=== PATIENT | male | born 1940 | race Caucasian/White ===

== ENCOUNTER → 2023-07-22 10:16 | Outpatient (REF) | payer MEDICARE, OTHER, SELFPAY ==
[2023-07-22 11:53] LABS: % Basophils 0.5 % (0-2); % Eosinophils 1.4 % (0-6); % Lymphocytes 38.6 % (20.5-51.1); % Monocytes 11.2 % (1.7-9.3); % Neutrophils 48.3 % (42.2-75.2); Absolute Lymphocytes 0.8 10^3/uL (1.2-3.4); Absolute Monocytes 0.2 10^3/uL (0.1-0.6); Hematocrit 32.4 % (39.0-52.0); Hemoglobin 10.7 g/dL (13.0-18.0); Mean Corpuscular Hgb 33.4 pg (27.0-31.0); Mean Corpuscular Volume 101.3 fL (80.0-94.0); Mean Platelet Volume 10.7 fL (7.4-10.4); Nucleated Red Blood Cells % 0 % (-); Platelet Count 79 10^3/uL (130-400); Red Cell Dist. Width 14.6 % (11.5-14.5); White Blood Cell Count 2.2 10^3/uL (4.8-10.8)
[2023-07-22 12:21] LABS: ALT (SGPT) 46 U/L (0-50); AST (SGOT) 78 U/L (17-59); Albumin 3.4 g/dl (3.5-5.0); Alkaline Phosphatase 166 U/L (38-126); Blood Urea Nitrogen 17 mg/dl (9-20); Calcium 8.5 mg/dl (8.4-10.2); Carbon Dioxide 25 mmol/L (22-30); Chloride 105 mmol/L (98-107); Glucose 183 mg/dl (70-99); Potassium 4.5 mmol/L (3.5-5.1); Sodium 135 mmol/L (135-145); Total Bilirubin 0.9 mg/dl (0.2-1.3); Total Protein 6.1 g/dl (6.3-8.2); eGFR > 60.00
[2023-07-22 12:47] LABS: CEA 11.9 ng/ml
== END ==
LOC: HWLAB 10:16
PROVIDERS: ATTENDING PHYSICIAN Internal Medicine Hematology & Oncology; FAMILY PHYSICIAN Nurse Practitioner Adult Health
DX: C18.4 Malignant neoplasm of transverse colon (principal); C78.7 Secondary malignant neoplasm of liver and intrahepatic bile duct; R80.9 Proteinuria, unspecified
CPT/HCPCS: 36415; 80053; 82378; 85025

== ENCOUNTER → 2023-07-29 11:18 | Outpatient (REF) | payer MEDICARE, OTHER, SELFPAY ==
[2023-07-29 15:24] LABS: % Basophils 0.3 % (0-2); % Eosinophils 0.9 % (0-6); % Immature Granulocytes 0.3 % (0-0.5); % Lymphocytes 24.3 % (20.5-51.1); % Monocytes 10.4 % (1.7-9.3); % Neutrophils 63.8 % (42.2-75.2); Absolute Lymphocytes 0.8 10^3/uL (1.2-3.4); Absolute Monocytes 0.4 10^3/uL (0.1-0.6); Absolute Neutrophils 2.2 10^3/uL (1.4-6.5); Hematocrit 33.4 % (39.0-52.0); Hemoglobin 11.5 g/dL (13.0-18.0); Mean Corp Hgb Conc. 34.4 g/dL (33.0-37.0); Mean Corpuscular Hgb 34.8 pg (27.0-31.0); Mean Corpuscular Volume 101.2 fL (80.0-94.0); Mean Platelet Volume 11.5 fL (7.4-10.4); Nucleated Red Blood Cells % 0 % (-); Platelet Count 127 10^3/uL (130-400); Red Cell Dist. Width 14.8 % (11.5-14.5); White Blood Cell Count 3.5 10^3/uL (4.8-10.8)
[2023-07-29 15:44] LABS: ALT (SGPT) 23 U/L (0-50); AST (SGOT) 34 U/L (17-59); Albumin 3.2 g/dl (3.5-5.0); Alkaline Phosphatase 130 U/L (38-126); Blood Urea Nitrogen 26 mg/dl (9-20); Calcium 9.3 mg/dl (8.4-10.2); Carbon Dioxide 21 mmol/L (22-30); Chloride 109 mmol/L (98-107); Glucose 210 mg/dl (70-99); Sodium 139 mmol/L (135-145); Total Protein 6.2 g/dl (6.3-8.2); eGFR 50.49
[2023-07-29 16:11] LABS: CEA 9.38 ng/ml
== END ==
LOC: HWLAB 11:18
PROVIDERS: ATTENDING PHYSICIAN Internal Medicine Hematology & Oncology
DX: C18.4 Malignant neoplasm of transverse colon (principal); C78.7 Secondary malignant neoplasm of liver and intrahepatic bile duct; R80.9 Proteinuria, unspecified
CPT/HCPCS: 36415; 80053; 82378; 85025

== ENCOUNTER → 2023-08-02 10:12 | Outpatient (REF) | payer MEDICARE, OTHER, SELFPAY ==
[2023-08-02 12:51] LABS: Urine Protein 77 mg/dl (0-12)
[2023-08-02 14:32] LABS: 24 Hour Urine Total Volume 2000 ml
== END ==
LOC: HWLAB 10:12
PROVIDERS: ATTENDING PHYSICIAN Internal Medicine Hematology & Oncology; FAMILY PHYSICIAN Nurse Practitioner Adult Health
DX: C18.4 Malignant neoplasm of transverse colon (principal); C78.7 Secondary malignant neoplasm of liver and intrahepatic bile duct; R80.9 Proteinuria, unspecified
CPT/HCPCS: 81050; 84156

== ENCOUNTER → 2023-08-09 08:28 | Outpatient (REF) | payer MEDICARE, OTHER, SELFPAY ==
[2023-08-09 11:11] LABS: ALT (SGPT) 23 U/L (0-50); AST (SGOT) 33 U/L (17-59); Albumin 3.1 g/dl (3.5-5.0); Alkaline Phosphatase 124 U/L (38-126); Blood Urea Nitrogen 17 mg/dl (9-20); Calcium 9.2 mg/dl (8.4-10.2); Carbon Dioxide 25 mmol/L (22-30); Chloride 107 mmol/L (98-107); Glucose 119 mg/dl (70-99); HDL Cholesterol 47 mg/dl; LDL Cholesterol, Calculated 55 mg/dl; Potassium 4.1 mmol/L (3.5-5.1); Sodium 139 mmol/L (135-145); Total Bilirubin 0.8 mg/dl (0.2-1.3); Total Cholesterol 118 mg/dl (50-199); Total Protein 6.3 g/dl (6.3-8.2); Triglyceride 84 mg/dl (10-149); Very Low Density Lipoprotein 16 mg/dl (0-30); eGFR > 60.00
[2023-08-09 11:12] LABS: % Basophils 0.4 % (0-2); % Eosinophils 1.3 % (0-6); % Immature Granulocytes 0.2 % (0-0.5); % Lymphocytes 20.3 % (20.5-51.1); % Monocytes 6.3 % (1.7-9.3); % Neutrophils 71.5 % (42.2-75.2); Absolute Eosinophils 0.1 10^3/uL (0-0.7); Absolute Lymphocytes 0.9 10^3/uL (1.2-3.4); Absolute Monocytes 0.3 10^3/uL (0.1-0.6); Absolute Neutrophils 3.3 10^3/uL (1.4-6.5); Hematocrit 28.3 % (39.0-52.0); Hemoglobin 10.4 g/dL (13.0-18.0); Mean Corp Hgb Conc. 36.7 g/dL (33.0-37.0); Mean Corpuscular Hgb 37.3 pg (27.0-31.0); Mean Corpuscular Volume 101.4 fL (80.0-94.0); Mean Platelet Volume 11.6 fL (7.4-10.4); Nucleated Red Blood Cells % 0 % (-); Platelet Count 69 10^3/uL (130-400); Red Blood Cell Count 2.79 10^6/uL (4.70-6.10); Red Cell Dist. Width 14.6 % (11.5-14.5); White Blood Cell Count 4.6 10^3/uL (4.8-10.8)
[2023-08-09 11:38] LABS: CEA 12.3 ng/ml
[2023-08-09 13:58] LABS: Glycohemoglobin (HgbA1c) 7.4 % (4.0-5.6)
[2023-08-09 14:41] LABS: Microalbumin, Random Urine > 57.0 mg/dl (0.6-1.7)
== END ==
LOC: HWLAB 08:28
PROVIDERS: ATTENDING PHYSICIAN Internal Medicine Hematology & Oncology; FAMILY PHYSICIAN Nurse Practitioner Adult Health
DX: C18.4 Malignant neoplasm of transverse colon (principal); C78.7 Secondary malignant neoplasm of liver and intrahepatic bile duct; R80.9 Proteinuria, unspecified; E11.69 Type 2 diabetes mellitus with other specified complication
CPT/HCPCS: 36415; 80053; 80061; 82043; 82378; 83036; 85025

== ENCOUNTER → 2023-08-12 11:30 | Outpatient (REF) | payer MEDICARE, OTHER, SELFPAY ==
[2023-08-12 16:02] LABS: % Basophils 0.2 % (0-2); % Eosinophils 0.7 % (0-6); % Immature Granulocytes 0.2 % (0-0.5); % Lymphocytes 19.2 % (20.5-51.1); % Monocytes 8.4 % (1.7-9.3); % Neutrophils 71.3 % (42.2-75.2); Absolute Lymphocytes 0.8 10^3/uL (1.2-3.4); Absolute Monocytes 0.4 10^3/uL (0.1-0.6); Hematocrit 30.6 % (39.0-52.0); Hemoglobin 10.5 g/dL (13.0-18.0); Mean Corp Hgb Conc. 34.3 g/dL (33.0-37.0); Mean Corpuscular Hgb 34.2 pg (27.0-31.0); Mean Corpuscular Volume 99.7 fL (80.0-94.0); Nucleated Red Blood Cells % 0 % (-); Platelet Count 66 10^3/uL (130-400); Red Blood Cell Count 3.07 10^6/uL (4.70-6.10); Red Cell Dist. Width 14.7 % (11.5-14.5); White Blood Cell Count 4.2 10^3/uL (4.8-10.8)
== END ==
LOC: HWLAB 11:30
PROVIDERS: ATTENDING PHYSICIAN Internal Medicine Hematology & Oncology; FAMILY PHYSICIAN Nurse Practitioner Adult Health
DX: C18.4 Malignant neoplasm of transverse colon (principal); C78.7 Secondary malignant neoplasm of liver and intrahepatic bile duct; R80.9 Proteinuria, unspecified
CPT/HCPCS: 36415; 85025

== ENCOUNTER → 2023-08-19 10:58 | Outpatient (REF) | payer MEDICARE, OTHER, SELFPAY ==
[2023-08-19 12:52] LABS: % Basophils 0.4 % (0-2); % Eosinophils 1.6 % (0-6); % Lymphocytes 26.8 % (20.5-51.1); % Monocytes 15.4 % (1.7-9.3); % Neutrophils 55.8 % (42.2-75.2); Absolute Lymphocytes 0.7 10^3/uL (1.2-3.4); Absolute Monocytes 0.4 10^3/uL (0.1-0.6); Absolute Neutrophils 1.4 10^3/uL (1.4-6.5); Hematocrit 30.2 % (39.0-52.0); Hemoglobin 10.7 g/dL (13.0-18.0); Mean Corp Hgb Conc. 35.4 g/dL (33.0-37.0); Mean Corpuscular Hgb 36.4 pg (27.0-31.0); Mean Corpuscular Volume 102.7 fL (80.0-94.0); Mean Platelet Volume 11.4 fL (7.4-10.4); Nucleated Red Blood Cells % 0 % (-); Platelet Count 112 10^3/uL (130-400); Red Blood Cell Count 2.94 10^6/uL (4.70-6.10); Red Cell Dist. Width 15.6 % (11.5-14.5); White Blood Cell Count 2.5 10^3/uL (4.8-10.8)
[2023-08-19 13:32] LABS: CEA 12.5 ng/ml
[2023-08-19 13:56] LABS: ALT (SGPT) 29 U/L (0-50); AST (SGOT) 43 U/L (17-59); Albumin 3.5 g/dl (3.5-5.0); Alkaline Phosphatase 188 U/L (38-126); Blood Urea Nitrogen 23 mg/dl (9-20); Calcium 9.6 mg/dl (8.4-10.2); Carbon Dioxide 23 mmol/L (22-30); Chloride 106 mmol/L (98-107); Glucose 266 mg/dl (70-99); Potassium 4.7 mmol/L (3.5-5.1); Sodium 137 mmol/L (135-145); Total Bilirubin 0.6 mg/dl (0.2-1.3); Total Protein 6.5 g/dl (6.3-8.2); eGFR > 60.00
== END ==
LOC: HWLAB 10:58
PROVIDERS: ATTENDING PHYSICIAN Internal Medicine Hematology & Oncology; FAMILY PHYSICIAN Nurse Practitioner Adult Health
DX: C18.4 Malignant neoplasm of transverse colon (principal); C78.7 Secondary malignant neoplasm of liver and intrahepatic bile duct; R80.9 Proteinuria, unspecified
CPT/HCPCS: 36415; 80053; 82378; 85025

== ENCOUNTER → 2023-08-21 13:16 | Outpatient (REF) | payer MEDICARE, OTHER, SELFPAY ==
[2023-08-21 12:08] LABS: Protein/creatinine Ratio 1.5; Urine Protein 133 mg/dl
== END ==
LOC: OIDL 13:16
PROVIDERS: ATTENDING PHYSICIAN Internal Medicine Hematology & Oncology
DX: C18.4 Malignant neoplasm of transverse colon (principal)
CPT/HCPCS: 82570; 84156

== ENCOUNTER → 2023-09-02 11:42 | Outpatient (REF) | payer MEDICARE, OTHER, SELFPAY ==
[2023-09-02 16:00] LABS: % Basophils 0.4 % (0-2); % Eosinophils 0.4 % (0-6); % Immature Granulocytes 0.2 % (0-0.5); % Lymphocytes 20.8 % (20.5-51.1); % Monocytes 8.3 % (1.7-9.3); % Neutrophils 69.9 % (42.2-75.2); Absolute Lymphocytes 0.9 10^3/uL (1.2-3.4); Absolute Monocytes 0.4 10^3/uL (0.1-0.6); Absolute Neutrophils 3.1 10^3/uL (1.4-6.5); Mean Corp Hgb Conc. 34.4 g/dL (33.0-37.0); Mean Corpuscular Hgb 34.9 pg (27.0-31.0); Mean Corpuscular Volume 101.6 fL (80.0-94.0); Mean Platelet Volume 11.8 fL (7.4-10.4); Nucleated Red Blood Cells % 0 % (-); Platelet Count 88 10^3/uL (130-400); Red Blood Cell Count 3.15 10^6/uL (4.70-6.10); Red Cell Dist. Width 15.5 % (11.5-14.5); White Blood Cell Count 4.5 10^3/uL (4.8-10.8)
[2023-09-02 16:13] LABS: ALT (SGPT) 32 U/L (0-50); AST (SGOT) 46 U/L (17-59); Albumin 3.7 g/dl (3.5-5.0); Alkaline Phosphatase 139 U/L (38-126); Blood Urea Nitrogen 18 mg/dl (9-20); Calcium 9.4 mg/dl (8.4-10.2); Carbon Dioxide 23 mmol/L (22-30); Chloride 110 mmol/L (98-107); Glucose 147 mg/dl (70-99); Potassium 4.1 mmol/L (3.5-5.1); Sodium 135 mmol/L (135-145); Total Bilirubin 1.1 mg/dl (0.2-1.3); Total Protein 6.6 g/dl (6.3-8.2); eGFR > 60.00
[2023-09-02 16:43] LABS: CEA 14.6 ng/ml
== END ==
LOC: HWLAB 11:42
PROVIDERS: ATTENDING PHYSICIAN Internal Medicine Hematology & Oncology
DX: C18.4 Malignant neoplasm of transverse colon (principal); C78.7 Secondary malignant neoplasm of liver and intrahepatic bile duct; R80.9 Proteinuria, unspecified
CPT/HCPCS: 36415; 80053; 82378; 85025

== ENCOUNTER → 2023-09-16 11:29 | Outpatient (REF) | payer MEDICARE, OTHER, SELFPAY ==
[2023-09-16 15:48] LABS: % Basophils 0.8 % (0-2); % Eosinophils 1.1 % (0-6); % Immature Granulocytes 0.3 % (0-0.5); % Lymphocytes 23.6 % (20.5-51.1); % Monocytes 13.6 % (1.7-9.3); % Neutrophils 60.6 % (42.2-75.2); Absolute Lymphocytes 0.9 10^3/uL (1.2-3.4); Absolute Monocytes 0.5 10^3/uL (0.1-0.6); Absolute Neutrophils 2.2 10^3/uL (1.4-6.5); Hematocrit 33.1 % (39.0-52.0); Hemoglobin 11.1 g/dL (13.0-18.0); Mean Corp Hgb Conc. 33.5 g/dL (33.0-37.0); Mean Corpuscular Hgb 34.6 pg (27.0-31.0); Mean Corpuscular Volume 103.1 fL (80.0-94.0); Mean Platelet Volume 11.5 fL (7.4-10.4); Nucleated Red Blood Cells % 0 % (-); Platelet Count 84 10^3/uL (130-400); Red Blood Cell Count 3.21 10^6/uL (4.70-6.10); Red Cell Dist. Width 15.1 % (11.5-14.5); White Blood Cell Count 3.6 10^3/uL (4.8-10.8)
[2023-09-16 15:59] LABS: ALT (SGPT) 22 U/L (0-50); AST (SGOT) 35 U/L (17-59); Albumin 3.5 g/dl (3.5-5.0); Alkaline Phosphatase 141 U/L (38-126); Blood Urea Nitrogen 17 mg/dl (9-20); Calcium 9.5 mg/dl (8.4-10.2); Carbon Dioxide 25 mmol/L (22-30); Chloride 106 mmol/L (98-107); Glucose 179 mg/dl (70-99); Potassium 4.5 mmol/L (3.5-5.1); Sodium 137 mmol/L (135-145); Total Bilirubin 0.7 mg/dl (0.2-1.3); Total Protein 6.4 g/dl (6.3-8.2); eGFR > 60.00
[2023-09-16 16:27] LABS: CEA 13.8 ng/ml
== END ==
LOC: HWLAB 11:29
PROVIDERS: ATTENDING PHYSICIAN Internal Medicine Hematology & Oncology; FAMILY PHYSICIAN Nurse Practitioner Adult Health
DX: C18.4 Malignant neoplasm of transverse colon (principal); C78.7 Secondary malignant neoplasm of liver and intrahepatic bile duct; R80.9 Proteinuria, unspecified
CPT/HCPCS: 36415; 80053; 82378; 85025

== ENCOUNTER → 2023-09-18 16:31 | Outpatient (REF) | payer MEDICARE, OTHER, SELFPAY ==
[2023-09-18 11:33] LABS: Protein/creatinine Ratio 3.5; Urine Protein 273 mg/dl
== END ==
LOC: OIDL 16:31
PROVIDERS: ATTENDING PHYSICIAN Internal Medicine Hematology & Oncology
DX: C18.4 Malignant neoplasm of transverse colon (principal)
CPT/HCPCS: 82570; 84156

== ENCOUNTER → 2023-09-30 11:02 | Outpatient (REF) | payer MEDICARE, OTHER, SELFPAY ==
[2023-09-30 13:54] LABS: % Basophils 0.5 % (0-2); % Eosinophils 4.4 % (0-6); % Immature Granulocytes 0.3 % (0-0.5); % Lymphocytes 22.7 % (20.5-51.1); % Monocytes 9.6 % (1.7-9.3); % Neutrophils 62.5 % (42.2-75.2); Absolute Eosinophils 0.2 10^3/uL (0-0.7); Absolute Lymphocytes 0.9 10^3/uL (1.2-3.4); Absolute Monocytes 0.4 10^3/uL (0.1-0.6); Absolute Neutrophils 2.4 10^3/uL (1.4-6.5); Hematocrit 33.6 % (39.0-52.0); Hemoglobin 11.5 g/dL (13.0-18.0); Mean Corp Hgb Conc. 34.2 g/dL (33.0-37.0); Mean Corpuscular Hgb 34.3 pg (27.0-31.0); Mean Corpuscular Volume 100.3 fL (80.0-94.0); Mean Platelet Volume 11.2 fL (7.4-10.4); Nucleated Red Blood Cells % 0 % (-); Platelet Count 80 10^3/uL (130-400); Red Blood Cell Count 3.35 10^6/uL (4.70-6.10); Red Cell Dist. Width 14.8 % (11.5-14.5); White Blood Cell Count 3.9 10^3/uL (4.8-10.8)
[2023-09-30 14:12] LABS: ALT (SGPT) 31 U/L (0-50); AST (SGOT) 43 U/L (17-59); Albumin 3.6 g/dl (3.5-5.0); Alkaline Phosphatase 145 U/L (38-126); Blood Urea Nitrogen 17 mg/dl (9-20); Calcium 9.2 mg/dl (8.4-10.2); Carbon Dioxide 26 mmol/L (22-30); Chloride 108 mmol/L (98-107); Glucose 147 mg/dl (70-99); Potassium 4.8 mmol/L (3.5-5.1); Sodium 136 mmol/L (135-145); Total Bilirubin 0.6 mg/dl (0.2-1.3); Total Protein 6.5 g/dl (6.3-8.2); eGFR 55.19
[2023-09-30 19:55] LABS: CEA 10.6 ng/ml
== END ==
LOC: HWLAB 11:02
PROVIDERS: ATTENDING PHYSICIAN Internal Medicine Hematology & Oncology; FAMILY PHYSICIAN Nurse Practitioner Adult Health
DX: C18.4 Malignant neoplasm of transverse colon (principal); C78.7 Secondary malignant neoplasm of liver and intrahepatic bile duct; R80.9 Proteinuria, unspecified
CPT/HCPCS: 36415; 80053; 82378; 85025

== ENCOUNTER → 2023-10-14 11:28 | Outpatient (REF) | payer MEDICARE, OTHER, SELFPAY ==
[2023-10-14 16:44] LABS: % Basophils 0.6 % (0-2); % Eosinophils 1.7 % (0-6); % Immature Granulocytes 0.3 % (0-0.5); % Lymphocytes 25.6 % (20.5-51.1); % Monocytes 11.8 % (1.7-9.3); Absolute Eosinophils 0.1 10^3/uL (0-0.7); Absolute Lymphocytes 0.9 10^3/uL (1.2-3.4); Absolute Monocytes 0.4 10^3/uL (0.1-0.6); Absolute Neutrophils 2.2 10^3/uL (1.4-6.5); Hematocrit 32.8 % (39.0-52.0); Hemoglobin 11.3 g/dL (13.0-18.0); Mean Corp Hgb Conc. 34.5 g/dL (33.0-37.0); Mean Corpuscular Volume 98.8 fL (80.0-94.0); Mean Platelet Volume 11.8 fL (7.4-10.4); Nucleated Red Blood Cells % 0 % (-); Platelet Count 78 10^3/uL (130-400); Red Blood Cell Count 3.32 10^6/uL (4.70-6.10); Red Cell Dist. Width 14.6 % (11.5-14.5); White Blood Cell Count 3.6 10^3/uL (4.8-10.8)
[2023-10-14 16:51] LABS: ALT (SGPT) 29 U/L (0-50); AST (SGOT) 52 U/L (17-59); Albumin 3.7 g/dl (3.5-5.0); Alkaline Phosphatase 150 U/L (38-126); Blood Urea Nitrogen 19 mg/dl (9-20); Calcium 9.6 mg/dl (8.4-10.2); Carbon Dioxide 21 mmol/L (22-30); Chloride 109 mmol/L (98-107); Glucose 130 mg/dl (70-99); Potassium 4.4 mmol/L (3.5-5.1); Sodium 137 mmol/L (135-145); Total Bilirubin 0.8 mg/dl (0.2-1.3); Total Protein 6.5 g/dl (6.3-8.2); eGFR 55.19
[2023-10-14 20:14] LABS: CEA 13.5 ng/ml
== END ==
LOC: HWLAB 11:28
PROVIDERS: ATTENDING PHYSICIAN Internal Medicine Hematology & Oncology; FAMILY PHYSICIAN Nurse Practitioner Adult Health
DX: C18.4 Malignant neoplasm of transverse colon (principal); C78.7 Secondary malignant neoplasm of liver and intrahepatic bile duct; R80.9 Proteinuria, unspecified
CPT/HCPCS: 36415; 80053; 82378; 85025

== ENCOUNTER → 2023-10-28 12:47 | Outpatient (REF) | payer MEDICARE, OTHER, SELFPAY ==
[2023-10-28 15:28] LABS: ALT (SGPT) 31 U/L (0-50); AST (SGOT) 44 U/L (17-59); Albumin 3.7 g/dl (3.5-5.0); Alkaline Phosphatase 132 U/L (38-126); Blood Urea Nitrogen 20 mg/dl (9-20); Calcium 10.1 mg/dl (8.4-10.2); Carbon Dioxide 24 mmol/L (22-30); Chloride 107 mmol/L (98-107); Glucose 132 mg/dl (70-99); Potassium 4.9 mmol/L (3.5-5.1); Sodium 139 mmol/L (135-145); Total Bilirubin 0.8 mg/dl (0.2-1.3); Total Protein 6.5 g/dl (6.3-8.2); eGFR > 60.00
[2023-10-28 15:40] LABS: % Basophils 0.5 % (0-2); % Eosinophils 2.4 % (0-6); % Lymphocytes 30.6 % (20.5-51.1); % Monocytes 10.3 % (1.7-9.3); % Neutrophils 56.2 % (42.2-75.2); Absolute Eosinophils 0.1 10^3/uL (0-0.7); Absolute Lymphocytes 1.2 10^3/uL (1.2-3.4); Absolute Monocytes 0.4 10^3/uL (0.1-0.6); Absolute Neutrophils 2.1 10^3/uL (1.4-6.5); Hematocrit 35.1 % (39.0-52.0); Hemoglobin 11.9 g/dL (13.0-18.0); Mean Corp Hgb Conc. 33.9 g/dL (33.0-37.0); Mean Corpuscular Hgb 34.4 pg (27.0-31.0); Mean Corpuscular Volume 101.4 fL (80.0-94.0); Mean Platelet Volume 11.2 fL (7.4-10.4); Nucleated Red Blood Cells % 0 % (-); Platelet Count 71 10^3/uL (130-400); Red Blood Cell Count 3.46 10^6/uL (4.70-6.10); Red Cell Dist. Width 14.7 % (11.5-14.5); White Blood Cell Count 3.8 10^3/uL (4.8-10.8)
[2023-10-28 15:58] LABS: CEA 12.8 ng/ml
== END ==
LOC: HWLAB 12:47
PROVIDERS: ATTENDING PHYSICIAN Internal Medicine Hematology & Oncology; FAMILY PHYSICIAN Nurse Practitioner Adult Health
DX: C18.4 Malignant neoplasm of transverse colon (principal); C78.7 Secondary malignant neoplasm of liver and intrahepatic bile duct; R80.9 Proteinuria, unspecified
CPT/HCPCS: 36415; 80053; 82378; 85025

== ENCOUNTER → 2023-11-08 11:54 | Outpatient (REF) | payer MEDICARE, OTHER, SELFPAY ==
[2023-11-08 15:20] LABS: % Basophils 0.3 % (0-2); % Eosinophils 2.9 % (0-6); % Immature Granulocytes 0.3 % (0-0.5); % Lymphocytes 31.8 % (20.5-51.1); % Monocytes 11.6 % (1.7-9.3); % Neutrophils 53.1 % (42.2-75.2); Absolute Eosinophils 0.1 10^3/uL (0-0.7); Absolute Monocytes 0.4 10^3/uL (0.1-0.6); Absolute Neutrophils 1.7 10^3/uL (1.4-6.5); Hematocrit 33.6 % (39.0-52.0); Hemoglobin 11.4 g/dL (13.0-18.0); Mean Corp Hgb Conc. 33.9 g/dL (33.0-37.0); Mean Corpuscular Hgb 34.3 pg (27.0-31.0); Mean Corpuscular Volume 101.2 fL (80.0-94.0); Mean Platelet Volume 11.9 fL (7.4-10.4); Nucleated Red Blood Cells % 0 % (-); Platelet Count 71 10^3/uL (130-400); Red Blood Cell Count 3.32 10^6/uL (4.70-6.10); Red Cell Dist. Width 14.4 % (11.5-14.5); White Blood Cell Count 3.1 10^3/uL (4.8-10.8)
[2023-11-08 15:23] LABS: ALT (SGPT) 26 U/L (0-50); AST (SGOT) 36 U/L (17-59); Albumin 3.4 g/dl (3.5-5.0); Alkaline Phosphatase 119 U/L (38-126); Blood Urea Nitrogen 24 mg/dl (9-20); Carbon Dioxide 23 mmol/L (22-30); Chloride 107 mmol/L (98-107); Glucose 195 mg/dl (70-99); Potassium 4.7 mmol/L (3.5-5.1); Sodium 137 mmol/L (135-145); Total Bilirubin 0.8 mg/dl (0.2-1.3); Total Protein 6.2 g/dl (6.3-8.2); eGFR 55.19
[2023-11-08 15:39] LABS: Urine Protein 259 mg/dl (0-12)
[2023-11-08 16:19] LABS: 24 Hour Urine Total Volume 1200 ml
== END ==
LOC: HWLAB 11:54
PROVIDERS: ATTENDING PHYSICIAN Internal Medicine Hematology & Oncology; FAMILY PHYSICIAN Nurse Practitioner Adult Health; REFERRING PHYSICIAN Nurse Practitioner Adult Health
DX: C18.4 Malignant neoplasm of transverse colon (principal); C78.7 Secondary malignant neoplasm of liver and intrahepatic bile duct; R80.9 Proteinuria, unspecified
CPT/HCPCS: 36415; 80053; 81050; 82378; 84156; 85025

== ENCOUNTER → 2023-11-22 12:51 | Outpatient (REF) | payer MEDICARE, OTHER, SELFPAY ==
[2023-11-22 15:31] LABS: % Basophils 0.6 % (0-2); % Eosinophils 2.1 % (0-6); % Immature Granulocytes 1.2 % (0-0.5); % Lymphocytes 32.8 % (20.5-51.1); % Monocytes 12.3 % (1.7-9.3); Absolute Eosinophils 0.1 10^3/uL (0-0.7); Absolute Lymphocytes 1.1 10^3/uL (1.2-3.4); Absolute Monocytes 0.4 10^3/uL (0.1-0.6); Absolute Neutrophils 1.7 10^3/uL (1.4-6.5); Hematocrit 33.3 % (39.0-52.0); Hemoglobin 11.6 g/dL (13.0-18.0); Mean Corp Hgb Conc. 34.8 g/dL (33.0-37.0); Mean Corpuscular Hgb 34.3 pg (27.0-31.0); Mean Corpuscular Volume 98.5 fL (80.0-94.0); Mean Platelet Volume 11.6 fL (7.4-10.4); Nucleated Red Blood Cells % 0 % (-); Platelet Count 80 10^3/uL (130-400); Red Blood Cell Count 3.38 10^6/uL (4.70-6.10); Red Cell Dist. Width 14.2 % (11.5-14.5); White Blood Cell Count 3.3 10^3/uL (4.8-10.8)
[2023-11-22 15:36] LABS: ALT (SGPT) 23 U/L (0-50); AST (SGOT) 36 U/L (17-59); Albumin 3.6 g/dl (3.5-5.0); Alkaline Phosphatase 114 U/L (38-126); Blood Urea Nitrogen 25 mg/dl (9-20); Calcium 9.6 mg/dl (8.4-10.2); Carbon Dioxide 21 mmol/L (22-30); Chloride 108 mmol/L (98-107); Glucose 172 mg/dl (70-99); Potassium 4.4 mmol/L (3.5-5.1); Sodium 138 mmol/L (135-145); Total Bilirubin 0.9 mg/dl (0.2-1.3); Total Protein 6.3 g/dl (6.3-8.2); eGFR 50.49
[2023-11-22 16:06] LABS: CEA 13.6 ng/ml
== END ==
LOC: HWLAB 12:51
PROVIDERS: ATTENDING PHYSICIAN Internal Medicine Hematology & Oncology; FAMILY PHYSICIAN Nurse Practitioner Adult Health
DX: C18.4 Malignant neoplasm of transverse colon (principal); C78.7 Secondary malignant neoplasm of liver and intrahepatic bile duct; R80.9 Proteinuria, unspecified
CPT/HCPCS: 36415; 80053; 82378; 85025

== ENCOUNTER → 2023-12-06 10:42 | Outpatient (REF) | payer MEDICARE, OTHER, SELFPAY ==
[2023-12-06 15:16] LABS: % Basophils 0.7 % (0-2); % Eosinophils 2.6 % (0-6); % Immature Granulocytes 0.4 % (0-0.5); % Lymphocytes 32.7 % (20.5-51.1); % Monocytes 9.7 % (1.7-9.3); % Neutrophils 53.9 % (42.2-75.2); Absolute Eosinophils 0.1 10^3/uL (0-0.7); Absolute Lymphocytes 1.5 10^3/uL (1.2-3.4); Absolute Monocytes 0.4 10^3/uL (0.1-0.6); Absolute Neutrophils 2.5 10^3/uL (1.4-6.5); Hematocrit 33.5 % (39.0-52.0); Hemoglobin 11.7 g/dL (13.0-18.0); Mean Corp Hgb Conc. 34.9 g/dL (33.0-37.0); Mean Corpuscular Hgb 34.3 pg (27.0-31.0); Mean Corpuscular Volume 98.2 fL (80.0-94.0); Mean Platelet Volume 11.5 fL (7.4-10.4); Nucleated Red Blood Cells % 0 % (-); Platelet Count 80 10^3/uL (130-400); Red Blood Cell Count 3.41 10^6/uL (4.70-6.10); Red Cell Dist. Width 14.5 % (11.5-14.5); White Blood Cell Count 4.6 10^3/uL (4.8-10.8)
[2023-12-06 15:23] LABS: ALT (SGPT) 26 U/L (0-50); AST (SGOT) 38 U/L (17-59); Albumin 3.7 g/dl (3.5-5.0); Alkaline Phosphatase 116 U/L (38-126); Blood Urea Nitrogen 24 mg/dl (9-20); Calcium 9.8 mg/dl (8.4-10.2); Carbon Dioxide 23 mmol/L (22-30); Chloride 109 mmol/L (98-107); Glucose 100 mg/dl (70-99); HDL Cholesterol 49 mg/dl; LDL Cholesterol, Calculated 67 mg/dl; Potassium 4.4 mmol/L (3.5-5.1); Sodium 138 mmol/L (135-145); Total Bilirubin 1.1 mg/dl (0.2-1.3); Total Cholesterol 142 mg/dl (50-199); Total Protein 6.4 g/dl (6.3-8.2); Triglyceride 133 mg/dl (10-149); Very Low Density Lipoprotein 26 mg/dl (0-30); eGFR 50.49
[2023-12-06 15:53] LABS: CEA 13.6 ng/ml
[2023-12-07 09:49] LABS: Glycohemoglobin (HgbA1c) 7.5 % (4.0-5.6)
== END ==
LOC: HWLAB 10:42
PROVIDERS: ATTENDING PHYSICIAN Internal Medicine Hematology & Oncology; FAMILY PHYSICIAN Nurse Practitioner Adult Health
DX: C18.4 Malignant neoplasm of transverse colon (principal); C78.7 Secondary malignant neoplasm of liver and intrahepatic bile duct; R80.9 Proteinuria, unspecified; E11.69 Type 2 diabetes mellitus with other specified complication
CPT/HCPCS: 36415; 80053; 80061; 82378; 83036; 85025

== ENCOUNTER → 2023-12-23 11:12 | Outpatient (REF) | payer MEDICARE, OTHER, SELFPAY ==
[2023-12-23 16:18] LABS: ALT (SGPT) 30 U/L (0-50); AST (SGOT) 42 U/L (17-59); Albumin 3.6 g/dl (3.5-5.0); Alkaline Phosphatase 130 U/L (38-126); Blood Urea Nitrogen 20 mg/dl (9-20); Calcium 9.7 mg/dl (8.4-10.2); Carbon Dioxide 21 mmol/L (22-30); Chloride 111 mmol/L (98-107); Glucose 155 mg/dl (70-99); Potassium 4.5 mmol/L (3.5-5.1); Sodium 139 mmol/L (135-145); Total Bilirubin 0.8 mg/dl (0.2-1.3); Total Protein 6.3 g/dl (6.3-8.2); eGFR 55.19
[2023-12-23 16:26] LABS: % Basophils 0.5 % (0-2); % Immature Granulocytes 0.2 % (0-0.5); % Lymphocytes 24.8 % (20.5-51.1); % Monocytes 10.3 % (1.7-9.3); % Neutrophils 58.2 % (42.2-75.2); Absolute Eosinophils 0.3 10^3/uL (0-0.7); Absolute Monocytes 0.4 10^3/uL (0.1-0.6); Absolute Neutrophils 2.4 10^3/uL (1.4-6.5); Hematocrit 31.7 % (39.0-52.0); Mean Corp Hgb Conc. 34.7 g/dL (33.0-37.0); Mean Corpuscular Hgb 34.7 pg (27.0-31.0); Mean Platelet Volume 12.2 fL (7.4-10.4); Nucleated Red Blood Cells % 0 % (-); Platelet Count 83 10^3/uL (130-400); Red Blood Cell Count 3.17 10^6/uL (4.70-6.10); Red Cell Dist. Width 14.4 % (11.5-14.5); White Blood Cell Count 4.2 10^3/uL (4.8-10.8)
== END ==
LOC: HWLAB 11:12
PROVIDERS: ATTENDING PHYSICIAN Internal Medicine Hematology & Oncology; FAMILY PHYSICIAN Nurse Practitioner Adult Health
DX: C18.4 Malignant neoplasm of transverse colon (principal); C78.7 Secondary malignant neoplasm of liver and intrahepatic bile duct; R80.9 Proteinuria, unspecified
CPT/HCPCS: 36415; 80053; 82378; 85025

== ENCOUNTER → 2024-01-06 11:02 | Outpatient (REF) | payer MEDICARE, OTHER, SELFPAY ==
[2024-01-06 16:40] LABS: ALT (SGPT) 27 U/L (0-50); AST (SGOT) 37 U/L (17-59); Albumin 3.8 g/dl (3.5-5.0); Alkaline Phosphatase 129 U/L (38-126); Blood Urea Nitrogen 21 mg/dl (9-20); Calcium 9.9 mg/dl (8.4-10.2); Carbon Dioxide 22 mmol/L (22-30); Chloride 112 mmol/L (98-107); Glucose 100 mg/dl (70-99); Potassium 4.4 mmol/L (3.5-5.1); Sodium 140 mmol/L (135-145); Total Bilirubin 0.8 mg/dl (0.2-1.3); Total Protein 6.4 g/dl (6.3-8.2); eGFR 55.19
[2024-01-06 16:46] LABS: % Basophils 0.7 % (0-2); % Eosinophils 2.4 % (0-6); % Immature Granulocytes 0.2 % (0-0.5); % Lymphocytes 30.3 % (20.5-51.1); % Monocytes 11.2 % (1.7-9.3); % Neutrophils 55.2 % (42.2-75.2); Absolute Eosinophils 0.1 10^3/uL (0-0.7); Absolute Lymphocytes 1.3 10^3/uL (1.2-3.4); Absolute Monocytes 0.5 10^3/uL (0.1-0.6); Absolute Neutrophils 2.3 10^3/uL (1.4-6.5); Hematocrit 32.3 % (39.0-52.0); Hemoglobin 11.1 g/dL (13.0-18.0); Mean Corp Hgb Conc. 34.4 g/dL (33.0-37.0); Mean Corpuscular Hgb 34.7 pg (27.0-31.0); Mean Corpuscular Volume 100.9 fL (80.0-94.0); Nucleated Red Blood Cells % 0 % (-); Platelet Count 85 10^3/uL (130-400); Red Cell Dist. Width 14.1 % (11.5-14.5); White Blood Cell Count 4.1 10^3/uL (4.8-10.8)
[2024-01-06 17:06] LABS: CEA 15.7 ng/ml
== END ==
LOC: HWLAB 11:02
PROVIDERS: ATTENDING PHYSICIAN Internal Medicine Hematology & Oncology; FAMILY PHYSICIAN Nurse Practitioner Adult Health
DX: C18.4 Malignant neoplasm of transverse colon (principal); C78.7 Secondary malignant neoplasm of liver and intrahepatic bile duct; R80.9 Proteinuria, unspecified
CPT/HCPCS: 36415; 80053; 82378; 85025

== ENCOUNTER 2024-01-08 13:44 | Inpatient (IN) | payer MEDICARE, OTHER, SELFPAY ==
[2024-01-08] VITALS (18 sets, daily range): BP systolic 103–186; BP diastolic 44–97; BMI 22.6
--- NOTE | 2024-01-08 10:46 | ED.GENMED ---
History of Present Illness
General
Chief Complaint: Abdominal Pain
Time Seen by Provider: 01/08/24 10:40
Past History
Past History
ED Past Medical History: NIDDM and Other (Rectal cancer)
ED Past Surgical History: Other (Right hemicolectomy, I&D with chest abscess, small bowel resection)
Social History
Tobacco: Non-smoker
Alcohol: None
Personal:
Living: with family
Employment: Retired
Course
Vital Signs
Initial and Last Documented VS:
Initial Vital Signs
Temp Pulse Resp Pulse Ox
97.5 F 96 18 100
01/08/24 10:30 01/08/24 10:30 01/08/24 10:30 01/08/24 10:30
Last Documented Vital Signs
Temp Pulse Resp BP Pulse Ox
97.5 F 96 18 146/56 100
01/08/24 10:30 01/08/24 10:30 01/08/24 10:30 01/08/24 10:35 01/08/24 10:30
ED Attending Note
-
Portions of this chart may have been created with voice recognition software.� Occasional wrong word or��sound alike� substitutions may have occurred due to the inherent limitations of voice recognition software.
Discharge Plan
Departure
Prescriptions:
No Action
tamsulosin 0.4 MG capsule
0.4 mg PO HS
sitagliptin phos-metformin [Janumet] 1 EACH tablet
1 ea PO BID
atorvastatin 80 MG tablet
80 mg PO HS
cyanocobalamin (vitamin B-12) 1,000 MCG tablet
1,000 mcg PO DAILY
ascorbic acid (vitamin C) [Vitamin C] 500 MG tablet
1,000 mg PO DAILY
ferrous sulfate [FeroSul] 325 MG tablet
325 mg PO DAILY
Interventions
Interventions:
*Risk Screen - Suicide Last Done: 01/08/24 10:30
*General Assessment Last Done: 01/08/24 10:30
*Neglect/Abuse Screening Last Done: 01/08/24 10:30
*ED COVID-19 Vaccine History Last Done: 01/08/24 10:30
Discharge Date and Time
Print Language: BELARUSIAN
--- NOTE | 2024-01-08 11:00 | ED.GENMED ---
History of Present Illness
General
Chief Complaint: Abdominal Pain
Source: patient
Exam Limitations: none
Time Seen by Provider: 01/08/24 10:40
History of Present Illness
History of Present Illness:
83-year-old male presents from [facility] after he developed sudden onset abdominal pain that radiated to his back with an episode of vomiting. 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 Remote history of
right hemicolectomy. He noted shaking chills at the onset of this pain. There is no chest pain. No urinary symptoms. Is moving his bowels normally. He notes a severe pain to the mid abdomen that radiates to the back. She denies chest pain.
Past History
Past History
ED Past Medical History: NIDDM and Other (Rectal cancer)
ED Past Surgical History: Other (Right hemicolectomy, I&D with chest abscess, small bowel resection)
Social History
Tobacco: Non-smoker
Alcohol: None
Personal:
Living: with family
Employment: Retired
Phy Exam
Physical Exam
Physical Exam:
General: Uncomfortable appearing male shaking no acute respiratory distress
HEENT: Normocephalic atraumatic
Heart: Regular rate and rhythm no murmurs
Lungs: Clear no wheeze or rales
abdomen soft soft but tender diffusely with mild guarding.
Extremities: No cyanosis
Skin: Warm no rash
Course
Orders/Labs/Results
Orders:
Orders
01/08/24 10:56
CMP [Comprehensive Metabolic Panel] Urgent
Complete Blood Count/With Diff Urgent
Lipase Urgent
01/08/24 10:58
HYDROmorphone [Dilaudid] 0.5 mg IV NOW STA
01/08/24 11:03
CT Angio Abd/Pelvis w/wo IV [CT Abd/pelvis Angio W/wo Iv] Urgent
Comment:
Reason For Exam: abdominal pain
01/08/24 12:17
Lactic Acid Urgent
Abnormal Lab Results
01/08/24 01/08/24
10:56 12:17
RBC 3.38 L 10^6/uL
(4.70-6.10)
Hgb 11.7 L g/dL
(13.0-18.0)
Hct 33.9 L %
(39.0-52.0)
MCV 100.3 H fL
(80.0-94.0)
MCH 34.6 H pg
(27.0-31.0)
RDW 14.6 H %
(11.5-14.5)
Plt Count 101 L 10^3/uL
(130-400)
MPV 11.5 H fL
(7.4-10.4)
Absolute Lymphs (auto) 0.8 L 10^3/uL
(1.2-3.4)
Neutrophils % 83.6 H %
(42.2-75.2)
Lymphocytes % 11.2 L %
(20.5-51.1)
Potassium 5.5 H mmol/L
(3.5-5.1)
Chloride 111 H mmol/L
(98-107)
Carbon Dioxide 16 L mmol/L
(22-30)
BUN 23 H mg/dl
(9-20)
Creatinine 1.4 H mg/dL
(0.7-1.3)
Glucose 224 H mg/dl
(70-99)
Lactic Acid 2.6 H mmol/L
(0.7-2.0)
Alkaline Phosphatase 153 H U/L
(38-126)
01/08/24 10:56
01/08/24 10:56
Vital Signs
Initial and Last Documented VS:
Initial Vital Signs
Temp Pulse Resp Pulse Ox
97.5 F 96 18 100
01/08/24 10:30 01/08/24 10:30 01/08/24 10:30 01/08/24 10:30
Last Documented Vital Signs
Temp Pulse Resp BP Pulse Ox
98.6 F 79 22 121/49 97
01/08/24 11:07 01/08/24 12:15 01/08/24 12:15 01/08/24 12:03 01/08/24 12:15
MDM/Problems Addressed
Differential Diagnosis Includes:
Sudden onset abdominal and back pain. Consider dissection versus perforation versus obstruction.
Patient quite a bit of discomfort. Vital signs are stable. Dilaudid ordered for pain will order CT angio of the abdomen and pelvis. Notified CT to perform study waiting for labs
*Critical Care Note
Total Time (30-74mins, 75-104mins- exclusive of procedures): Not Applicable
Update Note
Update Note:
No further vomiting here. Vital signs remained stable. Patient still quite tender on exam. CT demonstrates no evidence of dissection but does show small bowel obstruction with transition point in the anterior abdomen just inferior to the
umbilicus. Will admit to hospital for further evaluation. Medical team and surgical team made aware
ED Attending Note
-
Portions of this chart may have been created with voice recognition software.� Occasional wrong word or��sound alike� substitutions may have occurred due to the inherent limitations of voice recognition software.
Discharge Plan
Departure
Patient Disposition: Admit
Date of Disposition: 01/08/24
Time of Disposition: 12:38
Admit to: Med/Surg
Presentation/result/management discussed w/ accepting MD/DO: Hospitalist
Discharge Problem:
Small bowel obstruction
Prescriptions:
No Action
tamsulosin 0.4 MG capsule
0.4 mg PO HS
sitagliptin phos-metformin [Janumet] 1 EACH tablet
1 ea PO BID
atorvastatin 80 MG tablet
80 mg PO HS
cyanocobalamin (vitamin B-12) 1,000 MCG tablet
1,000 mcg PO DAILY
ascorbic acid (vitamin C) [Vitamin C] 500 MG tablet
1,000 mg PO DAILY
ferrous sulfate [FeroSul] 325 MG tablet
325 mg PO DAILY
Referrals:
Michi Ross CRNP [Family Provider] -
Interventions
Interventions:
*Risk Screen - Suicide Last Done: 01/08/24 10:30
*General Assessment Last Done: 01/08/24 10:30
*Neglect/Abuse Screening Last Done: 01/08/24 10:30
ED- Fall Risk Assessment Last Done: 01/08/24 11:07
*ED COVID-19 Vaccine History Last Done: 01/08/24 10:30
TM-Thuxqj-Zkwofwqvmq Assessment Last Done: 01/08/24 11:08
Discharge Date and Time
Print Language: TURKISH
[2024-01-08] MEDS: DILAUDID 0.5 MG IV (11:03)
[2024-01-08 11:05] LABS: % Basophils 0.3 % (0-2); % Eosinophils 1.1 % (0-6); % Immature Granulocytes 0.4 % (0-0.5); % Lymphocytes 11.2 % (20.5-51.1); % Monocytes 3.4 % (1.7-9.3); % Neutrophils 83.6 % (42.2-75.2); Absolute Eosinophils 0.1 10^3/uL (0-0.7); Absolute Lymphocytes 0.8 10^3/uL (1.2-3.4); Absolute Monocytes 0.3 10^3/uL (0.1-0.6); Absolute Neutrophils 6.1 10^3/uL (1.4-6.5); Hematocrit 33.9 % (39.0-52.0); Hemoglobin 11.7 g/dL (13.0-18.0); Mean Corp Hgb Conc. 34.5 g/dL (33.0-37.0); Mean Corpuscular Hgb 34.6 pg (27.0-31.0); Mean Corpuscular Volume 100.3 fL (80.0-94.0); Mean Platelet Volume 11.5 fL (7.4-10.4); Nucleated Red Blood Cells % 0 % (-); Platelet Count 101 10^3/uL (130-400); Red Blood Cell Count 3.38 10^6/uL (4.70-6.10); Red Cell Dist. Width 14.6 % (11.5-14.5); White Blood Cell Count 7.3 10^3/uL (4.8-10.8)
[2024-01-08 11:17] LABS: ALT (SGPT) 27 U/L (0-50); AST (SGOT) 39 U/L (17-59); Albumin 4.1 g/dl (3.5-5.0); Alkaline Phosphatase 153 U/L (38-126); Blood Urea Nitrogen 23 mg/dl (9-20); Calcium 9.9 mg/dl (8.4-10.2); Carbon Dioxide 16 mmol/L (22-30); Chloride 111 mmol/L (98-107); Glucose 224 mg/dl (70-99); Lipase 269 U/L (23-300); Potassium 5.5 mmol/L (3.5-5.1); Sodium 139 mmol/L (135-145); Total Protein 6.7 g/dl (6.3-8.2); eGFR 50.49
[2024-01-08 12:34] LABS: Lactic Acid 2.6 mmol/L (0.7-2.0)
--- NOTE | 2024-01-08 13:07 | HPS.HSE ---
Family Physician
-
Family Physician: Michi Ross
Chief Complaint
-
abdominal pain
History of Present Illness
83-year-old male with PMH for colon cancer, adenocarcinoma of the liver, rectal cancer status post hemicolectomy at present getting chemo at [facility] presented to us with abdominal pain associate with distention since yesterday. Patient was getting
chemo at [facility] , when he started vomiting and complained of excruciating abdominal pain. Patient tolerated breakfast today. The pain radiated to his back . Patient denied fever or chills . Denied chest pain or short of breath .patient denied
headache, dizziness, syncopal episode. Patient denied dysuria, hematuria. He thinks he had a bowel movement today but not sure about it.
CT with small bowel obstruction. Admitting for further management
Medical History
Past Medical History
Past Medical History: Reports Other
Additional Past Medical History:
Type 2 diabetes
Colon cancer
Right lung abscess
Past Surgical History: Reports Other
Additional Past Surgical History:
Hemicolectomy
Bilateral cataract
Thoracotomy
Social History
Tobacco: Non-smoker
Alcohol: None
Drug: None
Personal:
Living: With Family
Family History
Family History: Not pertinent
Allergies / Home Medications
Allergies reflects when Allergies were last updated in [employer].
Home Medications with original date entered in [employer]
Allergy/Medication List:
Allergies
Allergy/AdvReac Type Severity Reaction Status Date / Time
Penicillins Allergy Unknown > Verified 01/08/24 10:30
70 years
ago,
tolerates
amoxil,
cefepime,
keflex
Home Medications
tamsulosin 0.4 mg capsule 0.4 mg PO DAILY Urinary issue 03/02/21
ascorbic acid (vitamin C) 500 mg tablet (Vitamin C) 1,000 mg PO QPM Supplement 05/24/21
atorvastatin 80 mg tablet 80 mg PO DAILY High cholesterol 05/24/21
cyanocobalamin (vitamin B-12) 1,000 mcg tablet 1,000 mcg PO QPM Supplement 05/24/21
ferrous sulfate 325 mg (65 mg iron) tablet (FeroSul) 325 mg PO QPM Supplement 05/24/21
donepezil 5 mg tablet 5 mg PO HS 01/08/24
glipizide 5 mg tablet 5 mg PO DAILY 01/08/24
lisinopril 5 mg tablet 5 mg PO DAILY 01/08/24
sitagliptin phosphate 50 mg-metformin 1,000 mg tablet (Janumet) 1 tab PO BID 01/08/24
therapeutic multivitamin 1 tab PO DAILY 01/08/24
Review of Systems
-
Constitutional: Reports No Symptoms
EENT: Reports No Symptoms
Respiratory: Reports No Symptoms
Cardiac: Reports No Symptoms
Abdomen/GI: Reports Abdominal Pain, Nausea and Vomiting
: Reports No Symptoms
Musculoskeletal: Reports No Symptoms
Skin: Reports No Symptoms
Neurological: Reports No Symptoms
Endocrine: Reports No Symptoms
Hematologic/Lymphatic: Reports No Symptoms
Psych: Reports No Symptoms
Physical Exam
Vital Signs
Vital Signs
Temp Pulse Resp BP Pulse Ox
98.6 F 79 22 121/49 97
01/08/24 11:07 01/08/24 12:15 01/08/24 12:15 01/08/24 12:03 01/08/24 12:15
Physical Exam
General: Well Developed, Well Nourished and No Apparent Distress
HEENT: NormoCephalic, Moist mucous membranes and Atraumatic
Respiratory: Clear
Cardiac: S1/S2 and Regular Rhythm; No Murmur or Rub
GI: Normal Bowel Sounds, Tender and Distended; No Organomegaly
Rectal: Deferred by Provider
Musculoskeletal: No Clubbing, No Cyanosis and No Edema
Skin: No Rash
Neuro: AO x 3 and Nonfocal/grossly intact
Psych: Calm
Laboratory Results
-
01/08/24 10:56
01/08/24 10:56
Laboratory Results
Lactic Acid 2.6 mmol/L (0.7-2.0) H 01/08/24 12:17
Total Bilirubin 1.0 mg/dl (0.2-1.3) 01/08/24 10:56
AST 39 U/L (17-59) 01/08/24 10:56
ALT 27 U/L (0-50) 01/08/24 10:56
Alkaline Phosphatase 153 U/L (38-126) H 01/08/24 10:56
Lipase 269 U/L (23-300) 01/08/24 10:56
Data Reviewed
-
CT Scan: Report Reviewed by me
Lab Data: Labs Reviewed by me
Impression/Plan
-
#sudden onset of abdominal pain, back pain associated with vomiting likley from SBO
-CT with Negative for aortic dissection. Advanced aortic atherosclerotic changes as above. Small bowel obstruction with transition point in the anterior abdomen immediately below the umbilicus, just to the left of midline as above. Hepatic
findings consistent with treated prostatic lesion as seen on previous examination. There is a 2.7 cm decreased attenuation lesion at this level on the delayed phase images. No abnormal FDG uptake at this level on prior PET/CT. Cholelithiasis.
Splenomegaly. 5 mm urinary bladder calculus
-Lactic 2.6
-Trend lactic
-Keep patient n.p.o.
-Fluids continued for hydration
-Surgery consulted
-Dilaudid as needed for pain
-Zofran as needed for nausea vomiting
#hxt of colon ca/rectal cancer/adenocarcinoma of liver
-s/p hemicolectomy
-Follows with [facility]
-At present getting chemo at [facility]
# Anemia of chronic disease/chronic thrombocytopenia
-Hemoglobin stable at 11.7, platelets 101
-No active bleeding
-Continue to monitor
# Hyperkalemia/metabolic acidosis/acute kidney injury likely dehydration
-K5.5, CO2 16, BUN 23, creatinine 1.4
-Normal saline continued monitor BMP in a.m.
# DM-II with hyperglycemia
-Blood sugar elevated
-Hold glipizide, Janumet
-Sliding scale
# Hyperlipidemia
-Statin held
# Dementia
-Aricept held
#Essential hypertension
-Blood pressure stable
-Lisinopril held
# BPH
-Flomax held
DVT Prophylaxis: SCDs
Code Status:DNR
[2024-01-08] MEDS: NSS 1000 IV ×2 (13:46→22:36)
--- NOTE | 2024-01-08 14:45 | W.PN.UPDATE ---
Update Note
Progress Note Update
This note serves as an addendum to the H&P by MISTY Ya, on January 08, 2024.
History of Presenting Illness
83-year-old male with past medical history of colon cancer, adenocarcinoma of the liver, rectal cancer status post hemicolectomy at present getting chemo at [facility] presented with abdominal pain associate with distention since yesterday. Today,
patient had some food in the morning, but later on in the day today, patient was getting chemotherapy at [facility] when he started vomiting and complained of excruciating abdominal pain. Patient denied fever or chills or any other complaints.
Patient's was present in the room and assisted with the history.
Physical Exam
General: Not in acute distress
HEENT: Normocephalic
Respiratory: Clear to Auscultation Bilaterally
Cardiac: S1/S2 and Regular Rhythm
GI: Normal Bowel Sounds, Tender and Distended
Musculoskeletal: No Cyanosis and No Edema
Skin: Warm. Dry.
Neuro: AAO x 3 and Nonfocal/grossly intact
Psych: Calm

CT Abdomen/Pelvis Results, as per radiologist's report
IMPRESSION:
1. Negative for aortic dissection. Advanced aortic atherosclerotic changes as above.
2. Small bowel obstruction with transition point in the anterior abdomen immediately below the umbilicus, just to the left of midline as above.
3. Hepatic findings consistent with treated prostatic lesion as seen on previous examination. There is a 2.7 cm decreased attenuation lesion at this level on the delayed phase images. No abnormal FDG uptake at this level on prior PET/CT.
4. Cholelithiasis.
5. Splenomegaly.
6. 5 mm urinary bladder calculus

Assessment/Plan
#Presentation with abdominal pain, likely secondary from bowel obstruction
-Lactic 2.6
-Trend lactic acid
-Keep patient n.p.o.
-Continue IV fluids
-Surgery consulted, appreciate recommendations
-Dilaudid as needed for pain
-Zofran as needed for nausea vomiting
#History of colon ca/rectal cancer/adenocarcinoma of liver
-s/p hemicolectomy
-Follows with [facility]
-At present getting chemo at [facility], last chemo was on 01/08/24 (but was reportedly cut short)
# Anemia of chronic disease/chronic thrombocytopenia
-Hemoglobin stable at 11.7, platelets 101
-No active bleeding
-Continue to monitor
# Hyperkalemia/metabolic acidosis/acute kidney injury likely dehydration
-Admission BMP labwork: K5.5, CO2 16, BUN 23, creatinine 1.4
-Continue IV fluids
-Recheck BMP this evening and make adjustments as needed
# DM-II with hyperglycemia
-Blood sugar elevated
-Hold glipizide, Janumet
-Sliding scale insulin and accuchecks
# Hyperlipidemia
-Statin held
# Dementia
-Aricept held
#Essential hypertension
-Blood pressure stable
-Lisinopril held
# BPH
-Flomax held
DVT Prophylaxis: Heparin Subq
Code Status:DNR
[2024-01-08] MEDS: SODIUM BICARBONATE 1075 MEQ IV (15:27)
--- NOTE | 2024-01-08 17:08 | W.PN.UPDATE ---
Update Note
Progress Note Update
patient seen and evaluated at bedside
83 year-old male with known recurrent colon cancer on long-term palliative chemotherapy presented today to the emergency department with acute onset, abdominal pain, nausea and vomiting that occurred earlier today during his chemotherapy infusion
comfortable during my encounter exam with mild distention and mild TTP about the umbilicus primarily, he is passing gas in the emergency department and reports he had a bowel movement earlier today
patient has mild dementia. His was present during my encounter and helped with history.
suspect partial SBO resulting from adhesions versus chemo enteritis versus malignancy.
Plan trial clear liquids. If he does not improve over the next 24 hours, he may benefit from oral contrast imaging.
Full consult note to follow.
[2024-01-08 18:59] LABS: Blood Urea Nitrogen 28 mg/dl (9-20); Calcium 9.4 mg/dl (8.4-10.2); Carbon Dioxide 18 mmol/L (22-30); Chloride 109 mmol/L (98-107); Glucose 243 mg/dl (70-99); Potassium 5.4 mmol/L (3.5-5.1); Sodium 134 mmol/L (135-145); eGFR 50.49
[2024-01-08 19:31] LABS: Lactic Acid 4.1 mmol/L (0.7-2.0)
[2024-01-08 19:34] LABS: Glucose - Point of Care 237 mg/dl (70-99)
[2024-01-08] MEDS: NOVOLOG FLEXPEN-LOW RESISTANCE 2 UNITS SC (19:34)
--- NOTE | 2024-01-08 19:57 | W.PN.UPDATE ---
Update Note
Progress Note Update
-lactic acid is keep trending up from 2.6 to 4.1. 500cc off NSS was ordered. Patient is asymptomatic. Surgical and foreclosure specialist were updated as recommended by the attending. New recommendation per surgical pianos and organs salesperson Dr. Moore to give another
bolus NSS 1000cc then to start NSS at rate 150cc/hr.
- 2am lab (hyperkalemia resolved K 4.6, Cr down to 1.3)
-Co2 is 15 patient currently on sodium bicarb drip rat at 75cc will increase the rate and will repeat the lab.
-lactic up to 4.8, patient still asymptomatic, afebrile, denied abdominal pain, nausea or vomiting. Abdomen is soft, without tenderness and normal bowel sound on exam. Will continue with IVF, continue trending lactic and will add blood cultures.
[2024-01-08] MEDS: HEPARIN 5000 UNITS SC (20:21)
[2024-01-08] MEDS: NSS 500 IV (20:26)
[2024-01-08 21:48] LABS: Glucose - Point of Care 237 mg/dl (70-99)
[2024-01-09] MEDS: DILAUDID 0.5 MG IV ×4 (00:46→21:08)
[2024-01-09] MEDS: NSS 1000 IV ×3 (00:47→21:08)
[2024-01-09] MEDS: NOVOLOG FLEXPEN-LOW RESISTANCE SC ×4 (00:50→17:27)
[2024-01-09 01:38] LABS: Blood Urea Nitrogen 31 mg/dl (9-20); Calcium 8.7 mg/dl (8.4-10.2); Carbon Dioxide 15 mmol/L (22-30); Chloride 114 mmol/L (98-107); Estimated Creatinine Clearance 42 ml/min; Glucose 166 mg/dl (70-99); Lactic Acid 4.8 mmol/L (0.7-2.0); Magnesium 1.8 mg/dl (1.6-2.3); Phosphorus 2.7 mg/dl (2.5-4.5); Potassium 4.6 mmol/L (3.5-5.1); Sodium 138 mmol/L (135-145); Uric Acid 5.5 mg/dl (3.5-8.5); eGFR 55.19
[2024-01-09 03:10] VITALS: BP 116/58
--- NOTE | 2024-01-09 06:02 | PTCARENOTE ---
Patient very tremulous overnight, unstable on his feet while standing at bedside to urinate. Patient stated he was having difficulty urinating, pt. bladder scanned two times overnight and was found to have 198mls of urine the first time and 401 mls
of urine the second time. Attempted to straight cath patient but met resistance and stopped the attempt. Provider notified and coude delgado catheter ordered for pt. Pt again stated that he wished to stand at bedside commode to try to urinate, pt. was
able to stand with the assistance of 2 and urinate at the commode, yielding a small amount of urine with each attempt (150mls, 200mls, 100mls). No delgado insertion needed at this time. Lactic acid continues to increase, 2.6-4.1-4.8; provider aware.
Pt. bolused 500 mls of NSS and an additional 1 L NSS bolus. Pt. is afebrile at this time and VSS. Pt. does complain of pain 'all over his body.' PRN dilaudid administered x2 overnight per order. Pt. respiratory rate elevated into the high 20s-30s at
times overnight. Will continue to monitor.
[2024-01-09 06:14] LABS: Lactic Acid 1.5 mmol/L (0.7-2.0)
[2024-01-09 06:32] LABS: Glucose - Point of Care 169 mg/dl (70-99)
[2024-01-09 06:40] LABS: Hematocrit 25.5 % (39.0-52.0); Hemoglobin 9.2 g/dL (13.0-18.0); Mean Corp Hgb Conc. 36.1 g/dL (33.0-37.0); Mean Corpuscular Hgb 36.1 pg (27.0-31.0); Red Blood Cell Count 2.55 10^6/uL (4.70-6.10); Red Cell Dist. Width 13.8 % (11.5-14.5); White Blood Cell Count 5.3 10^3/uL (4.8-10.8)
[2024-01-09 06:50] LABS: Blood Urea Nitrogen 33 mg/dl (9-20); Calcium 8.6 mg/dl (8.4-10.2); Carbon Dioxide 20 mmol/L (22-30); Chloride 112 mmol/L (98-107); Estimated Creatinine Clearance 42 ml/min; Glucose 141 mg/dl (70-99); Potassium 4.6 mmol/L (3.5-5.1); Sodium 137 mmol/L (135-145); eGFR 55.19
[2024-01-09 07:00] VITALS: BP 112/65
[2024-01-09 07:18] LABS: Mean Platelet Volume 11.7 fL (7.4-10.4); Platelet Count 57 10^3/uL (130-400)
[2024-01-09] MEDS: SODIUM BICARBONATE IV (07:45)
--- NOTE | 2024-01-09 07:45 | PTCARENOTE ---
Clarified with provider the fluid order for patient, provider instructed to hold the 1/2 NS with 75 mEq of Bicarb for now. Also clarified order for transfer to IMU overnight. Provider instructed to keep the patient on this unit. Assessment ongoing.
[2024-01-09] MEDS: HEPARIN 5000 UNITS SC ×2 (08:25→21:09)
[2024-01-09 09:05] LABS: Glycohemoglobin (HgbA1c) 7.3 % (4.0-5.6)
--- NOTE | 2024-01-09 09:25 | CON.GS ---
Consultation
-
Date/Time Consultation Requested: 01/08/24 12PM
Date/Time Consultation Performed: 01/08/24 4PM - LATE ENTRY FROM ENCOUNTER YESTERDAY
Requesting Provider: Declan
Performing Provider: Dev
Reason for Consultation: SBO
Medical History
-
Chief Complaint: Abd pain n/v
History of Present Illness:
83M with hx of CRC s/p resection about 15 yrs ago with subsequent recurrence now on termination clerk palliative chemo p/w acute onset abd pain a/w n/v. He began having mild abd discomfort yesterday and then today during chemo infusion it became acutely
worse. 1 episode of vomiting. At present he is comfortable. He has mild dementia and helps with history at the bedside. He reports BM this am and he is presently passing gas. Denies f/c.
Past Medical History
Past Medical History: Other (Type 2 diabetes Colon cancer Right lung abscess mild dementia)
Past Surgical History: Other (Hemicolectomy Bilateral cataract Thoracotomy)
Social History
Tobacco: Non-Smoker
Alcohol: None
Drug: None
Personal:
Living: With Family
Family History
Family History: Reviewed & Noncontributory
Allergies / Home Medications
Allergy/AdvReac Type Severity Reaction Status Date / Time
Penicillins Allergy Unknown > Verified 01/08/24 10:30
70 years
ago,
tolerates
amoxil,
cefepime,
keflex
�Medication �Instructions �Recorded �Confirmed �Type
tamsulosin 0.4 mg capsule 0.4 mg PO DAILY Urinary issue 03/02/21 01/08/24 History
ascorbic acid (vitamin C) 500 mg 1,000 mg PO QPM Supplement 05/24/21 01/08/24 History
tablet (Vitamin C)
atorvastatin 80 mg tablet 80 mg PO DAILY High cholesterol 05/24/21 01/08/24 History
cyanocobalamin (vitamin B-12) 1,000 mcg PO QPM Supplement 05/24/21 01/08/24 History
1,000 mcg tablet
ferrous sulfate 325 mg (65 mg 325 mg PO QPM Supplement 05/24/21 01/08/24 History
iron) tablet (FeroSul)
donepezil 5 mg tablet 5 mg PO HS Neurological Condition 01/08/24 01/08/24 History
glipizide 5 mg tablet 5 mg PO DAILY Diabetes 01/08/24 01/08/24 History
lisinopril 5 mg tablet 5 mg PO DAILY Blood Pressure 01/08/24 01/08/24 History
sitagliptin phosphate 50 1 tab PO BID Diabetes 01/08/24 01/08/24 History
mg-metformin 1,000 mg tablet
(Janumet)
therapeutic multivitamin 1 tab PO DAILY Supplement 01/08/24 01/08/24 History
Review of Systems
-
A 10 point review of systems was completed, and was negative except as per HPI.
Physical Exam
Vital Signs
Temp Pulse Resp BP Pulse Ox
97.4 F 67 22 112/65 98
01/09/24 07:00 01/09/24 07:00 01/09/24 07:00 01/09/24 07:00 01/09/24 07:00
01/08/24 01/09/24 01/10/24
06:59 06:59 06:59
Actual Weight 67.33 kg
Body Mass Index (BMI) 22.6
Lab Results
01/09/24 05:49
WBC 5.3 10^3/uL (4.8-10.8) 01/09/24 05:49
Hgb 9.2 g/dL (13.0-18.0) L D 01/09/24 05:49
Hct 25.5 % (39.0-52.0) L 01/09/24 05:49
Plt Count 57 10^3/uL (130-400) L D 01/09/24 05:49
Abs Immat Gran (auto) 0.0 10^3/uL (0-0.05) 01/08/24 10:56
Neutrophils % 83.6 % (42.2-75.2) H 01/08/24 10:56
Physical Exam
General: No Apparent Distress
HEENT: Normocephalic and Anicteric
GI: Soft, Non Distended and Tender (very mild ttp about the umbilicus)
Skin: Warm and Dry
Neuro: AO x 3
Psych: Calm
Data Reviewed
-
CT Scan: Image Personally Visualized and interpreted, Report Reviewed by me, Discussed with Patient and Discussed with Family
Labs: Labs Reviewed by me, Discussed with Patient and Discussed with Family
Old Records: Reviewed
Assessment / Plan
-
83M with pSBO 2/2 adhesions vs chemo enteritis vs malignancy
AFVSS, passing flatus in the ED, denies n/v
Labs notable for thrombocytopenia, no leukocytosis
CT with dilated sb loops in anterior mid abdomen, possibly some wall thickening, sb feces sign just proximal to transition point, no PV gas, no pneumatosis, no free air
Plan:
Trial clears
If he does not improve in the next 24-48 hrs, PO contrast imaging may be beneficial
PRN pain meds/anti-emetics
Ambulate
DVT ppx
All other care as per primary team
--- NOTE | 2024-01-09 10:32 | CON.ONC ---
Impression
Impression
Small bowel obstruction
Metastatic colon carcinoma
Mild dementia
Diabetes mellitus
History of lung abscess
Prostate abnormality
Splenomegaly
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
Plan
Plan
Small bowel obstruction with definitive transition point
Hemoglobin declining with hydration no active bleeding
Thrombocytopenia secondary to bolus 5-fluorouracil
Conservative management of small bowel obstruction
Monitor CBC
Patient History
History of Present Illness
Patient is a pleasant 83-year-old gentleman that has been on chronic suppressive chemotherapy for metastatic colon carcinoma the presented to the hospital with increased abdominal discomfort. Radiologic studies revealed evidence of small bowel
obstruction. He was last treated with 5-FU based systemic therapy on 12/25/2023. He previously received bevacizumab but not since 10/30/2023. Patient appears comfortable this morning noting an improvement in his abdominal discomfort.
Past-Medical/Surgical History
Past Medical History
Type 2 diabetes
Colon cancer
Right lung abscess
Past Surgical History
Hemicolectomy
Bilateral cataract
Thoracotomy
Social History
Tobacco: Non-smoker
Alcohol: None
Drug: None
Personal:
Living: With Family
Family History
Family History: Not pertinent
Patient Medication
�Medication �Instructions �Recorded �Confirmed �Last Taken �Type
tamsulosin 0.4 mg capsule 0.4 mg PO DAILY Urinary issue 03/02/21 01/08/24 01/08/24 History
ascorbic acid (vitamin C) 500 mg 1,000 mg PO QPM Supplement 05/24/21 01/08/24 06/14/21 History
tablet (Vitamin C)
atorvastatin 80 mg tablet 80 mg PO DAILY High cholesterol 05/24/21 01/08/24 01/08/24 History
cyanocobalamin (vitamin B-12) 1,000 mcg PO QPM Supplement 05/24/21 01/08/24 01/07/24 History
1,000 mcg tablet
ferrous sulfate 325 mg (65 mg 325 mg PO QPM Supplement 05/24/21 01/08/24 01/07/24 History
iron) tablet (FeroSul)
donepezil 5 mg tablet 5 mg PO HS Neurological Condition 01/08/24 01/08/24 Unknown History
glipizide 5 mg tablet 5 mg PO DAILY Diabetes 01/08/24 01/08/24 01/08/24 History
lisinopril 5 mg tablet 5 mg PO DAILY Blood Pressure 01/08/24 01/08/24 01/08/24 History
sitagliptin phosphate 50 1 tab PO BID Diabetes 01/08/24 01/08/24 01/08/24 History
mg-metformin 1,000 mg tablet
(Janumet)
therapeutic multivitamin 1 tab PO DAILY Supplement 01/08/24 01/08/24 01/08/24 History
Active Medications
Generic Name Dose Route Start Last Admin
Trade Name Freq PRN Reason Stop Dose Admin
Dextrose 12.5 grams 01/08/24 18:18
Dextrose 50% (0.5 Grams/Ml) 50 Ml Syringe IV 02/05/24 18:17
[id number] PRN
hypoglycemia
Protocol
Glucagon 1 mg 01/08/24 18:18
Glucagon 1 Mg Vial IM 02/05/24 18:17
PRN PRN
hypoglycemia
Protocol
Heparin Sodium 5,000 units 01/08/24 20:00 01/09/24 08:25
Heparin 5,000 Units/Ml 1 Ml Vial SC 02/05/24 19:59 5,000 units
Q12 TOBI Administration
Hydromorphone HCl 0.5 mg 01/08/24 18:18 01/09/24 05:52
Hydromorphone 0.5 Mg/0.5 Ml Syringe IV 01/22/24 18:17 0.5 mg
Q4HPRN PRN Administration
severe pain
Sodium Chloride 1,000 mls @ 150 mls/hr 01/08/24 22:30 08/01/24 00:47
Nss IV 1,000 mls
.Q6H40M TOBI Administration
Insulin Aspart 0 units 01/09/24 00:00 01/09/24 07:30
Insulin Aspart Low Resistance 300 Units/3 Ml Pen.Injctr SC 02/06/24 00:00 300 units
Q6 TOBI Administration
Protocol
Ondansetron HCl 4 mg 01/08/24 18:18
Ondansetron 4 Mg/2 Ml Vial IV 02/05/24 18:17
Q6HPRN PRN
nausea and vomiting
Sodium Chloride 0 flush 01/08/24 16:00
Sodium Chloride 0.9% (Flush) Syringe IV 02/05/24 15:59
PER PROTOCOL TOBI
Review of Systems
-
Patient denies acute discomfort or shortness of breath. 12 point review systems fails to elicit additional complaints other than those noted in the HPI
Physical Exam
-
Physical Exam
General: Well Developed, Well Nourished and No Apparent Distress
HEENT: NormoCephalic, Moist mucous membranes and Atraumatic
Respiratory: Clear without rales or rhonchi
Cardiac: S1/S2 and Regular Rhythm; No Murmur or Rub
GI: Normal Bowel Sounds, Tender and mildly distended; No Organomegaly
Musculoskeletal: No Clubbing, No Cyanosis and No Edema
Skin: No Rash
Neuro: AO x 3 and Nonfocal/grossly intact
Psych: Calm
Labs
Lab Results
WBC 5.3 10^3/uL (4.8-10.8) 01/09/24 05:49
RBC 2.55 10^6/uL (4.70-6.10) L 01/09/24 05:49
Hgb 9.2 g/dL (13.0-18.0) L D 01/09/24 05:49
Hct 25.5 % (39.0-52.0) L 01/09/24 05:49
MCV 100.0 fL (80.0-94.0) H 01/09/24 05:49
MCH 36.1 pg (27.0-31.0) H 01/09/24 05:49
MCHC 36.1 g/dL (33.0-37.0) 01/09/24 05:49
RDW 13.8 % (11.5-14.5) 01/09/24 05:49
Plt Count 57 10^3/uL (130-400) L D 01/09/24 05:49
MPV 11.7 fL (7.4-10.4) H 01/09/24 05:49
Abs Immat Gran (auto) 0.0 10^3/uL (0-0.05) 01/08/24 10:56
Absolute Neuts (auto) 6.1 10^3/uL (1.4-6.5) 01/08/24 10:56
Absolute Lymphs (auto) 0.8 10^3/uL (1.2-3.4) L 01/08/24 10:56
Absolute Monos (auto) 0.3 10^3/uL (0.1-0.6) 01/08/24 10:56
Absolute Eos (auto) 0.1 10^3/uL (0-0.7) 01/08/24 10:56
Absolute Basos (auto) 0.0 10^3/uL (0-0.2) 01/08/24 10:56
Immature Gran % 0.4 % (0-0.5) 01/08/24 10:56
Neutrophils % 83.6 % (42.2-75.2) H 01/08/24 10:56
Lymphocytes % 11.2 % (20.5-51.1) L 01/08/24 10:56
Monocytes % 3.4 % (1.7-9.3) 01/08/24 10:56
Eosinophils % 1.1 % (0-6) 01/08/24 10:56
Basophils % 0.3 % (0-2) 01/08/24 10:56
Creatinine 1.3 mg/dL (0.7-1.3) 01/09/24 05:49
Vital Signs
Vital Signs
Temp Pulse Resp BP Pulse Ox
97.4 F 67 22 112/65 98
01/09/24 07:00 01/09/24 07:00 01/09/24 07:00 01/09/24 07:00 01/09/24 07:00
--- NOTE | 2024-01-09 10:35 | W.PN.GS2 ---
Addendum entered and electronically signed by Gage Moore MD 01/09/24 16:11:
Patient seen and examined in follow-up this afternoon with nurse joseer. Agree with documented progress note with additions noted here.
Patient resting comfortably in his bed, finishing oral contrast for CT imaging at the time.
Denies abdominal pain
Denies nausea
Patient unable to recall if he is passing flatus or bowel movements
AF VSS
NAD AAO x 1 (knew he was in the hospital but thought [facility])
Abdomen: Soft, nondistended, completely nontender on palpation. No rebound, no rigidity, no guarding.
Follow-up CT imaging reviewed from today. Oral contrast opacifies throughout small bowel and into the colon. No significant residual small bowel distention. No abrupt transition point. No free air, no pneumatosis, no mesenteric or portal venous
gas. No residual small bowel thickening or edema. Trace free fluid.
Assessment/plan: 83-year-old male initially presenting with probable partial small bowel obstruction in the setting of chronic suppressive chemotherapy for metastatic colon cancer.
Overnight metabolic acidosis with elevated lactic acid and electrolyte abnormalities for likely reflective of his inadequate IV fluid resuscitation. Much improved and resolved after IV fluid bolus and more aggressive IV fluid hydration provided.
Abdominal examination without any signs of bowel compromise or threat and repeat CT imaging today confirms essentially resolution of presenting partial small bowel obstruction.
Start on clear liquid diet for today and monitor for subsequent dietary advancement
Updated patient's via phone call from a general surgical treatment standpoint.
Original Note:
Today's Communication / Plan
-
CT with PO contrast
Assessment / Plan
-
83M with recurrent colon cancer on long-term palliative chemotherapy presenting with pSBO 2/2 adhesions vs chemo enteritis vs malignancy, transition point near umbilicus.
AFVSS
Urinary retention being followed by primary team: ?delgado placement today
+flatus last night per spouse, await BM. No n/v. No abdominal pain on exam but poor historian
No leukocytosis. H/H/Plts dropped overnight without signs of active bleeding
Metabolic acidosis: on bicarb gtt
Lactic acid elevated overnight, resolved with IVF
Plan:
Plan PO contrast study to further evaluate
Analgesics/antiemetics
Medical management as per primary team
Subjective Data
-
Date of Service: January 09, 2024
Patient seen and examined at bedside. present and offering history as patient is confused. She notes she has heard him passing some flatus with attempts to void. He has had no BM's as of yet. He denies nausea. He is curled up in the
position but denies pain or tenderness to abdomen on exam. Difficulty voiding.
Objective Data
-
Intake and Output
01/08/24 01/09/24 01/10/24
06:59 06:59 06:59
Intake Total 1760 / 1760
Output Total 350 / 350
Balance 1410 / 1410
Intake:
Oral fluids 60 / 60
IV fluids (Total) 1700 / 1700
Nss 1,000 ml @ 100 mls/hr IV . 200 / 200
Q10H TOBI Rx#:[id number]
Output:
Urine, Voided 350 / 350
Other:
Number of unmeasured voidings 1
Number of approximated SMALL 1
amounts of urine
Vital Signs
Temp Pulse Resp BP Pulse Ox
97.4 F 67 22 112/65 98
01/09/24 07:00 01/09/24 07:00 01/09/24 07:00 01/09/24 07:00 01/09/24 07:00
Lab Results
01/09/24 05:49
Calcium 8.6 mg/dl (8.4-10.2) 01/09/24 05:49
Phosphorus 2.7 mg/dl (2.5-4.5) 01/09/24 01:06
Magnesium 1.8 mg/dl (1.6-2.3) 01/09/24 01:06
Total Bilirubin 1.0 mg/dl (0.2-1.3) 01/08/24 10:56
AST 39 U/L (17-59) 01/08/24 10:56
ALT 27 U/L (0-50) 01/08/24 10:56
Alkaline Phosphatase 153 U/L (38-126) H 01/08/24 10:56
Total Protein 6.7 g/dl (6.3-8.2) 01/08/24 10:56
Albumin 4.1 g/dl (3.5-5.0) 01/08/24 10:56
Physical Exam
-
NAD, confused
Flushed
ABD soft, NT, bladder distention present otherwise ND
--- NOTE | 2024-01-09 10:53 | PTCARENOTE ---
Attempt x1 coude catheter insertion. Patient not tolerating the procedure, tense, groaning with resistance met at initial insertion so attempt stopped. No return of urine and a small amount of blood noted on the tip of the catheter upon removal.
Provider made aware and urologist notified by provider in the message.
--- NOTE | 2024-01-09 10:56 | W.PN.HOSP.TC ---
Addendum entered and electronically signed by Derrick Bourgeois MD 01/09/24 12:32:
Correction: NPO for now, until CT imaging is complete and surgery says can upgrade to a clear liquids diet
Original Note:
Today's Communication/Plan
-
Clear Liquids Diet as per surgery
Labwork improved
Monitor for improvement for another 1-2 days
Assessment / Plan
Assessment / Plan
Physical Exam
General: Not in acute distress
HEENT: Normocephalic
Respiratory: Clear to Auscultation Bilaterally
Cardiac: S1/S2 and Regular Rhythm
GI: Normal Bowel Sounds, Tender and Distended
Musculoskeletal: No Cyanosis and No Edema
Skin: Warm. Dry.
Neuro: AAO x 3 and Nonfocal/grossly intact
Psych: Calm

CT Abdomen/Pelvis Results, as per radiologist's report
IMPRESSION:
1. Negative for aortic dissection. Advanced aortic atherosclerotic changes as above.
2. Small bowel obstruction with transition point in the anterior abdomen immediately below the umbilicus, just to the left of midline as above.
3. Hepatic findings consistent with treated prostatic lesion as seen on previous examination. There is a 2.7 cm decreased attenuation lesion at this level on the delayed phase images. No abnormal FDG uptake at this level on prior PET/CT.
4. Cholelithiasis.
5. Splenomegaly.
6. 5 mm urinary bladder calculus

Assessment/Plan
#Presentation with abdominal pain, likely secondary from bowel obstruction
-Lactic 2.6-->4.8-->1.5
-Okay to trial clear liquids diet, as per surgery
-If patient does not improve in the next 24-48 hrs, PO contrast imaging may be beneficial
-Continue IV fluids
-Surgery consulted, appreciate recommendations
-Dilaudid as needed for pain
-Zofran as needed for nausea vomiting
#History of colon ca/rectal cancer/adenocarcinoma of liver
-s/p hemicolectomy
-Follows with [facility]
-At present getting chemo at [facility], last chemo was on 01/08/24 (but was reportedly cut short)
#Urinary Retention
-Per nurse on January 09, 2024, it was difficult delgado catheter placement
-Urology consulted, evaluation and recommendations appreciated
# Anemia of chronic disease/chronic thrombocytopenia
-Suspected from chemo plus cancer
-Hemoglobin stable at 11.7, platelets 101
-No active bleeding
-Continue to monitor
# Hyperkalemia/metabolic acidosis/acute kidney injury likely dehydration
-Admission BMP labwork: K5.5, CO2 16, BUN 23, creatinine 1.4
-Continue IV fluids
# DM-II with hyperglycemia
-Blood sugar elevated
-Hold glipizide, Janumet
-Sliding scale insulin and accuchecks
# Hyperlipidemia
-Statin held
# Dementia
-Aricept held
#Essential hypertension
-Blood pressure stable
-Lisinopril held
# BPH
-Flomax held
DVT Prophylaxis: Heparin Subq
Code Status:DNR
Anticipated Discharge: 24 - 48 hours
Subjective/Interval History
-
Date of Service: January 09, 2024
Patient was seen and examined. He denied any abdominal pain or any other complaints.
Objective Data
-
Labs:
Laboratory Results
01/09/24 01/09/24 01/09/24
01:06 05:49 12:00
WBC 5.3
Hgb 9.2 L D
Hct 25.5 L
Plt Count 57 L D
Sodium 138 137 Pending
Potassium 4.6 4.6 Pending
Chloride 114 H 112 H Pending
Carbon Dioxide 15 L 20 L Pending
BUN 31 H 33 H Pending
Creatinine 1.3 1.3 Pending
Glucose 166 H 141 H Pending
Calcium 8.7 8.6 Pending
Vital Signs:
Vital Signs
Temp Pulse Resp BP Pulse Ox
97.4 F 67 22 112/65 98
01/09/24 07:00 01/09/24 07:00 01/09/24 07:00 01/09/24 07:00 01/09/24 07:00
I&O
01/08/24 01/09/24 01/10/24
06:59 06:59 06:59
Intake Total 1760 / 1760
Output Total 350 / 350
Balance 1410 / 1410
[2024-01-09 11:00] VITALS: BP 118/53
[2024-01-09] MEDS: NSS IV (11:32)
[2024-01-09 12:05] LABS: Glucose - Point of Care 133 mg/dl (70-99)
--- NOTE | 2024-01-09 12:16 | CONS.URO ---
Consultation
-
Performing Provider: Peffer
Reason for Consultation: Urinary retention
Medical History
History of Present Illness
83M with recurrent colon cancer on palliative chemotherapy
Admitted with SBO, possible malignant origin
Since admission he had had some difficulty voiding - needing to strain, some dysuria, and small volume voids
Today he had PVR 400cc and difficulty emptying
Nurse was unable to place delgado and urology consulted
Per patient and his , he has no prior urologic history
He does not have difficulty voiding at baseline
Normal stream
Some nocturia 3x/night
Has not needed any prostate medications in the past
Past Medical History
Past Medical History: Other (Type 2 diabetes Colon cancer Right lung abscess)
Past Surgical History: Other (Hemicolectomy Bilateral cataract Thoracotomy)
Social History
Unable to obtain full social history at this time due to: Dementia
Family History
Family History: Reviewed & Not Pertinent
Allergies/Home Medications
Allergies
Allergy/AdvReac Type Severity Reaction Status Date / Time
Penicillins Allergy Unknown > Verified 01/08/24 10:30
70 years
ago,
tolerates
amoxil,
cefepime,
keflex
Home Medications
�Medication �Instructions �Recorded �Confirmed �Type
tamsulosin 0.4 mg capsule 0.4 mg PO DAILY Urinary issue 03/02/21 01/08/24 History
ascorbic acid (vitamin C) 500 mg 1,000 mg PO QPM Supplement 05/24/21 01/08/24 History
tablet (Vitamin C)
atorvastatin 80 mg tablet 80 mg PO DAILY High cholesterol 05/24/21 01/08/24 History
cyanocobalamin (vitamin B-12) 1,000 mcg PO QPM Supplement 05/24/21 01/08/24 History
1,000 mcg tablet
ferrous sulfate 325 mg (65 mg 325 mg PO QPM Supplement 05/24/21 01/08/24 History
iron) tablet (FeroSul)
donepezil 5 mg tablet 5 mg PO HS Neurological Condition 01/08/24 01/08/24 History
glipizide 5 mg tablet 5 mg PO DAILY Diabetes 01/08/24 01/08/24 History
lisinopril 5 mg tablet 5 mg PO DAILY Blood Pressure 01/08/24 01/08/24 History
sitagliptin phosphate 50 1 tab PO BID Diabetes 01/08/24 01/08/24 History
mg-metformin 1,000 mg tablet
(Janumet)
therapeutic multivitamin 1 tab PO DAILY Supplement 01/08/24 01/08/24 History
Physical Exam
Vital Signs
Vital Signs
Temp Pulse Resp BP Pulse Ox
97.4 F 64 20 118/53 98
01/09/24 11:00 01/09/24 11:00 01/09/24 11:00 01/09/24 11:00 01/09/24 11:00
Lab / Testing Results
Laboratory Results
01/09/24 05:49
Physical Exam
General: Well Developed and Well Nourished
Respiratory: Clear and Non Labored Respirations
GI: Tender and Distended
Genito-urinary: Other (SP fullness, normal penile meatus)
Neuro: Awake and Alert
Psych: Confused, Anxious and Apparent Dementia
Assessment / Plan
-
83M admitted with SBO and developed urinary retention
Urology consulted for difficult delgado placement
- 16Fr coude catheter placed without any difficulty or resistance. 500cc clear yellow urine
- Suspect that the issues encountered earlier were more related to patient's loud and emotional response to being catheterized. Patient comfortable once catheter in place.
- Urinary retention likely due to acute illness/SBO
- Given lack of baseline obstructive symptoms, would not recommend new medications at this time
- Remove delgado for trial of void once clinical status improved, SBO resolved, and patient nearing discharge
Please call with any further questions
[2024-01-09] MEDS: OMNIPAQUE 50 ML PO (12:37)
--- NOTE | 2024-01-09 13:21 | CM ---
Patient seen bedside with , Blanca, initial assessment completed by . Patient and reside in a two story home, two steps to enter. Patient does not use DME, denies VN, reports SNF years ago. Patient PCP Michi Ross, pharmacy [facility].
confirms prescription coverage, denies any food, housing/utility, transportation insecurities at home. CM will continue to follow for all discharge planning needs.
Plan; watch for VN needs.
[2024-01-09 13:53] LABS: Blood Urea Nitrogen 32 mg/dl (9-20); Calcium 8.6 mg/dl (8.4-10.2); Carbon Dioxide 18 mmol/L (22-30); Chloride 112 mmol/L (98-107); Estimated Creatinine Clearance 42 ml/min; Glucose 115 mg/dl (70-99); Potassium 4.4 mmol/L (3.5-5.1); Sodium 137 mmol/L (135-145); eGFR 55.19
[2024-01-09 15:00] VITALS: BP 125/63
[2024-01-09 17:03] LABS: Glucose - Point of Care 114 mg/dl (70-99)
[2024-01-09] MEDS: NOVOLOG FLEXPEN-LOW RESISTANCE 1 UNITS SC (19:33)
[2024-01-09 19:54] VITALS: BP 127/61
[2024-01-09 21:30] LABS: Glucose - Point of Care 180 mg/dl (70-99)
[2024-01-09 23:17] VITALS: BP 99/47
[2024-01-10 03:21] VITALS: BP 110/42
--- NOTE | 2024-01-10 04:07 | PTCARENOTE ---
This RN assumed care of this patient at 315 am.
[2024-01-10 04:21] LABS: Hematocrit 26.1 % (39.0-52.0); Hemoglobin 9.2 g/dL (13.0-18.0); Mean Corp Hgb Conc. 35.2 g/dL (33.0-37.0); Mean Corpuscular Hgb 34.5 pg (27.0-31.0); Mean Corpuscular Volume 97.8 fL (80.0-94.0); Mean Platelet Volume 10.8 fL (7.4-10.4); Platelet Count 63 10^3/uL (130-400); Red Blood Cell Count 2.67 10^6/uL (4.70-6.10); Red Cell Dist. Width 14.3 % (11.5-14.5); White Blood Cell Count 4.9 10^3/uL (4.8-10.8)
[2024-01-10 04:38] LABS: Blood Urea Nitrogen 26 mg/dl (9-20); Calcium 8.2 mg/dl (8.4-10.2); Carbon Dioxide 20 mmol/L (22-30); Chloride 115 mmol/L (98-107); Estimated Creatinine Clearance 46 ml/min; Glucose 86 mg/dl (70-99); Potassium 4.1 mmol/L (3.5-5.1); Sodium 138 mmol/L (135-145); eGFR > 60.00
[2024-01-10] MEDS: NSS IV (06:53)
[2024-01-10 07:00] VITALS: BP 115/57
[2024-01-10 07:28] LABS: Glucose - Point of Care 93 mg/dl (70-99)
[2024-01-10] MEDS: NOVOLOG FLEXPEN-LOW RESISTANCE SC ×2 (07:29→12:14)
[2024-01-10] MEDS: HEPARIN 5000 UNITS SC ×2 (07:57→20:28)
--- NOTE | 2024-01-10 10:28 | W.PN.GS2 ---
Addendum entered and electronically signed by Gage Moore MD 01/10/24 14:23:
Patient seen in follow-up with nurse practitioner this afternoon.
States that he is doing well.
Tolerating full liquids. Denies nausea. Positive flatus and loose bowel movements
AFVSS
NAD
ABD: Soft, nondistended, no tenderness on palpation
Assessment/plan: 83-year-old male with known history of metastatic colon cancer on long-term palliative chemotherapy. Probable PSBO which has clinically and radiographically resolved.
Advance from full liquids to low residue
Okay for discharge tomorrow if tolerating dietary advancement.
Original Note:
Today's Communication / Plan
-
FLD
Assessment / Plan
-
83M with recurrent colon cancer on long-term palliative chemotherapy presenting with pSBO 2/2 adhesions vs chemo enteritis vs malignancy, transition point near umbilicus.
AFVSS
01/08: Follow-up CT imaging with PO contrast with no significant residual small bowel distention
Tolerating CLD with +flatus/bm's but with some mild distention
Plan:
Advance to FLD
Improving with medical management, no plans for operative intervention at this time
Medical management as per primary team
Subjective Data
-
Date of Service: January 10, 2024
Patient seen and examined at bedside. OOB to chair with his at bedside. Denies pain. Passing multiple loose stools and flatus.
Objective Data
-
Intake and Output
01/09/24 01/10/24 01/11/24
06:59 06:59 06:59
Intake Total 1760 / 1760 660 / 660 1000 / 1000
Output Total 350 / 350 2375 / 2375
Balance 1410 / 1410 -1715 / -1715 1000 / 1000
Intake:
Oral fluids 60 / 60 660 / 660
IV fluids (Total) 1700 / 1700 1000 / 1000
Nss 1,000 ml @ 100 mls/hr IV . 200 / 200
Q10H [facility] Rx#:[id number]
Output:
Urine, Coates 2250 / 2250
Urine, Voided 350 / 350 125 / 125
Other:
Number of unmeasured voidings 1
Number of approximated SMALL 1
amounts of urine
Vital Signs
Temp Pulse Resp BP Pulse Ox
98.2 F 66 16 115/57 93
01/10/24 07:00 01/10/24 07:00 01/10/24 07:00 01/10/24 07:00 01/10/24 07:00
Lab Results
01/10/24 04:05
01/10/24 04:05
Calcium 8.2 mg/dl (8.4-10.2) L 01/10/24 04:05
Phosphorus 2.7 mg/dl (2.5-4.5) 01/09/24 01:06
Magnesium 1.8 mg/dl (1.6-2.3) 01/09/24 01:06
Total Bilirubin 1.0 mg/dl (0.2-1.3) 01/08/24 10:56
AST 39 U/L (17-59) 01/08/24 10:56
ALT 27 U/L (0-50) 01/08/24 10:56
Alkaline Phosphatase 153 U/L (38-126) H 01/08/24 10:56
Total Protein 6.7 g/dl (6.3-8.2) 01/08/24 10:56
Albumin 4.1 g/dl (3.5-5.0) 01/08/24 10:56
Physical Exam
-
NAD, Ox2
ABD soft, NT, mild distention
[2024-01-10 11:11] VITALS: BP 131/64
[2024-01-10 11:41] LABS: Glucose - Point of Care 145 mg/dl (70-99)
--- NOTE | 2024-01-10 12:38 | PN.CDI ---
CDI
- -
CDI:
Physician Documentation Request
Admit Date: 01/08/24 13:44
Dear Doctor Bk,
Clinical Indicators:
Patient admitted with small bowel obstruction.
01/08 PN, 'Hyperkalemia/metabolic acidosis/acute kidney injury likely dehydration'
Cr/GFR December 2023 (prior to admission):
12/23/23 01/06/24
11:13
Creatinine 1.3 1.3
eGFR 55.19 55.19
Cr/GFR trend:
01/08/24 01/09/24 01/10/24
10:56 01:06 04:05
Creatinine 1.4 H 1.3 1.2
eGFR 50.49 55.19 > 60.00
Bases on the above information and the clinical indicators in the record, please clarify in the Progress Notes which of the following most accurately represents the patient's renal status:
Chronic stable CKD, (please specify stage)
Acute kidney injury with no underlying CKD
Rise in creatinine only
Other, please specify
Criteria for CHICHI*
1 Increase in serum creatinine by > or = to 0.3 mg/dL (> or = to 26.5 micromol/L) within 48 hours, OR
2 Increase in serum creatinine to > or = to 1.5 times baseline, which is known or presumed to have occurred within 7 days, OR
3 Urine volume < 0.5 nL/kg/hour for six hours
Stages of Chronic Kidney Disease*
Level Description GFR
G1 Normal or High >90
G2 Mildly decreased 60-89
G3a Mildly to moderately decreased 45-59
G3b Moderately to severely decreased 30-44
G4 Severely decreased 15-29
G5 Kidney failure <15
Use of terms such as suspected, likely, concern for, or probable (associated with a specific diagnosis that is being evaluated, monitored, or treated as if it exists) are acceptable and can be coded in the inpatient setting, when documented at the
time of discharge.
Thank you,
Sammie Schaefer RN BSN
CDI Specialist
available via tiger text
Please use your independent medical judgment in providing your response.
*Source: Kidney Disease: Improving Global Outcomes (KDIGO) 2012
--- NOTE | 2024-01-10 13:02 | PTCARENOTE ---
Notified the provider of patient's diarrhea x3. Provider made surgery aware in the message. Per surgery, diarrhea can be expected as patient returns to baseline bowel function. Assessment of needs ongoing.
--- NOTE | 2024-01-10 15:39 | W.PN.HOSP.TC ---
Today's Communication/Plan
-
Diet advanced
PO home medications resumed
If okay going into tomorrow, then can discharge tomorrow
Assessment / Plan
Assessment / Plan
Physical Exam
General: Not in acute distress
HEENT: Normocephalic
Respiratory: Clear to Auscultation Bilaterally
Cardiac: S1/S2 and Regular Rhythm
GI: Normal Bowel Sounds, Tender and Distended
Musculoskeletal: No Cyanosis and No Edema
Skin: Warm. Dry.
Neuro: AAO x 3 and Nonfocal/grossly intact
Psych: Calm

CT Abdomen/Pelvis Results, as per radiologist's report
IMPRESSION:
1. Negative for aortic dissection. Advanced aortic atherosclerotic changes as above.
2. Small bowel obstruction with transition point in the anterior abdomen immediately below the umbilicus, just to the left of midline as above.
3. Hepatic findings consistent with treated prostatic lesion as seen on previous examination. There is a 2.7 cm decreased attenuation lesion at this level on the delayed phase images. No abnormal FDG uptake at this level on prior PET/CT.
4. Cholelithiasis.
5. Splenomegaly.
6. 5 mm urinary bladder calculus

Assessment/Plan
#Presentation with abdominal pain, likely secondary from partial small bowel obstruction
-Lactic 2.6-->4.8-->1.5
-Okay to advance to low residue diet and see how patient does
-Continue IV fluids
-Surgery consulted, appreciate recommendations
-Dilaudid as needed for pain
-Zofran as needed for nausea vomiting
#History of colon ca/rectal cancer/adenocarcinoma of liver - known history of metastatic colon cancer on long-term palliative chemotherapy
-s/p hemicolectomy
-Follows with [facility]
-At present getting chemo at [facility], last chemo was on 01/08/24 (but was reportedly cut short)
#Urinary Retention
-Per nurse on January 09, 2024, it was difficult delgado catheter placement
-Urology consulted, evaluation and recommendations appreciated
# Anemia of chronic disease/chronic thrombocytopenia
-Suspected from chemo plus cancer
-Hemoglobin stable at 11.7, platelets 101
-No active bleeding
-Continue to monitor
# Hyperkalemia/metabolic acidosis/acute kidney injury likely dehydration
-Admission BMP labwork: K5.5, CO2 16, BUN 23, creatinine 1.4
-Continue IV fluids
# DM-II with hyperglycemia
-Blood sugar elevated
-Hold glipizide, Janumet
-Sliding scale insulin and accuchecks
# Hyperlipidemia
-Statin held
# Dementia
-Aricept held
#Essential hypertension
-Blood pressure stable
-Lisinopril held
# BPH
-Flomax held
DVT Prophylaxis: Heparin Subq
Code Status:DNR
Anticipated Discharge: 24 - 48 hours
Subjective/Interval History
-
Date of Service: January 10, 2024
Objective Data
-
Labs:
Laboratory Results
01/10/24
04:05
WBC 4.9
Hgb 9.2 L
Hct 26.1 L
Plt Count 63 L
Sodium 138
Potassium 4.1
Chloride 115 H
Carbon Dioxide 20 L
BUN 26 H
Creatinine 1.2
Glucose 86
Calcium 8.2 L
Vital Signs:
Vital Signs
Temp Pulse Resp BP Pulse Ox
97.4 F 59 18 131/64 96
01/10/24 11:11 01/10/24 11:11 01/10/24 11:11 01/10/24 11:11 01/10/24 11:11
I&O
01/09/24 01/10/24 01/11/24
06:59 06:59 06:59
Intake Total 1760 / 1760 660 / 660 1000 / 1000
Output Total 350 / 350 2375 / 2375
Balance 1410 / 1410 -1715 / -1715 1000 / 1000
[2024-01-10 15:46] LABS: Glucose - Point of Care 247 mg/dl (70-99)
[2024-01-10 15:48] VITALS: BP 166/76
[2024-01-10] MEDS: FLOMAX 0.4 MG PO (16:22)
[2024-01-10] MEDS: VITAMIN C 1000 MG PO (16:22)
[2024-01-10] MEDS: FEOSOL 325 MG PO (16:22)
[2024-01-10] MEDS: NOVOLOG FLEXPEN-LOW RESISTANCE 2 UNITS SC (16:22)
[2024-01-10] MEDS: LIPITOR 80 MG PO (16:22)
[2024-01-10] MEDS: VITAMIN B-12 1000 MCG PO (16:22)
--- NOTE | 2024-01-10 18:38 | PTCARENOTE ---
Notified the provider and urology per provider's request of hematuria in the patient's delgado cath in the evening. PCT reported that the patient had been pulling his delgado in the morning. Patient reminded to notify nurse if he needs assistance and to
not pull on the catheter. present at the beside at this time. Assessment ongoing, awaiting response from urology, incoming power and recovery shift engineer RN notified.
[2024-01-10] MEDS: ARICEPT 5 MG PO (20:31)
[2024-01-10 21:31] LABS: Glucose - Point of Care 245 mg/dl (70-99)
[2024-01-10 22:55] LABS: Hematocrit 26.9 % (39.0-52.0); Hemoglobin 9.6 g/dL (13.0-18.0)
[2024-01-10 23:10] VITALS: BP 165/81
[2024-01-11 07:19] LABS: Glucose - Point of Care 145 mg/dl (70-99)
[2024-01-11 08:16] VITALS: BP 140/59
[2024-01-11 08:26] LABS: Blood Urea Nitrogen 19 mg/dl (9-20); Calcium 8.5 mg/dl (8.4-10.2); Carbon Dioxide 22 mmol/L (22-30); Chloride 115 mmol/L (98-107); Estimated Creatinine Clearance 50 ml/min; Glucose 126 mg/dl (70-99); Potassium 3.8 mmol/L (3.5-5.1); Sodium 139 mmol/L (135-145); eGFR > 60.00
[2024-01-11 09:02] LABS: Hematocrit 27.1 % (39.0-52.0); Hemoglobin 9.9 g/dL (13.0-18.0); Mean Corp Hgb Conc. 36.5 g/dL (33.0-37.0); Mean Corpuscular Hgb 36.1 pg (27.0-31.0); Mean Corpuscular Volume 98.9 fL (80.0-94.0); Mean Platelet Volume 11.2 fL (7.4-10.4); Platelet Count 60 10^3/uL (130-400); Red Blood Cell Count 2.74 10^6/uL (4.70-6.10); Red Cell Dist. Width 13.8 % (11.5-14.5); White Blood Cell Count 3.6 10^3/uL (4.8-10.8)
[2024-01-11] MEDS: NOVOLOG FLEXPEN-LOW RESISTANCE SC (10:10)
[2024-01-11] MEDS: FLOMAX 0.4 MG PO (10:11)
[2024-01-11] MEDS: HEPARIN 5000 UNITS SC (10:12)
[2024-01-11] MEDS: THERAGRAN 1 TABLET PO (10:13)
[2024-01-11] MEDS: LIPITOR 80 MG PO (10:13)
--- NOTE | 2024-01-11 10:26 | W.PN.URO.CBU ---
Today's Communication / Plan
-
please remove delgado encourage po replace delgado ester cueto delgado ie 20 fr if no void 6 hoirs or abd distenion or pvr over 300cc
Assessment / Plan
-
retention had delgado traume will remove delgado voiding trial
Diagnosis
-
Date of Service: January 11, 2024
-
Patient Diagnosis:retntioin 400cc drained with coude no prior h/o voiding trouble
Post Op Day:
Subjective
-
hemturkia rexsolvved
Objective
-
Vital Signs
Temp Pulse Resp BP Pulse Ox
97.5 F 61 18 140/59 98
01/11/24 08:16 01/11/24 08:16 01/11/24 08:16 01/11/24 08:16 01/11/24 08:16
Intake and Output
01/10/24 01/11/24 01/12/24
06:59 06:59 06:59
Intake Total 660 / 660 1480 / 1480
Output Total 2375 / 2375 3700 / 3700
Balance -1715 / -1715 -2220 / -2220
Intake:
Oral fluids 660 / 660 480 / 480
IV fluids (Total) 1000 / 1000
Output:
Urine, Delgado 2250 / 2250 2400 / 2400
Urine, Voided 125 / 125 1300 / 1300
Laboratory Results
01/11/24 07:34
01/11/24 07:34
Review of Systems
-
Abdomen/GI: Abdominal Pain
: Difficulty Voiding
Physical Exam
-
General - well developed, well nourished, no acute distress
Chest - clear bilaterally
Abdomen - soft, non-tender, positive bowel sounds, no CVAT, no incisional pain or distention
Genitalia - normal
Rectal - normal
Skin - warm & dry with no rash
Neuro - AOx3, no motor deficits
Extremities - no clubbing, no cyanosis, no edema
Incision - clean, dry
Dressing - clean, dry, intact
Care Review
Data Reviewed
Discussed with: Nursing and Family
[2024-01-11 11:27] LABS: Glucose - Point of Care 345 mg/dl (70-99)
--- NOTE | 2024-01-11 12:01 | CM ---
Chart reviewed and patient to return to home today, Coates has been removed, wrapper caser reviewed possible visiting nurses and patient and spouse have declined visiting nurses.
Plan; Home when stable, no needs.
[2024-01-11 13:12] LABS: Glucose - Point of Care 313 mg/dl (70-99)
[2024-01-11] MEDS: NOVOLOG FLEXPEN-LOW RESISTANCE 4 UNITS SC (13:12)
--- NOTE | 2024-01-11 13:51 | W.PN.HOSP.TC ---
Addendum entered and electronically signed by Derrick Bourgeois MD 01/15/24 17:05:
Rise in Creatinine
Original Note:
Today's Communication/Plan
-
Discharge today
Assessment / Plan
Assessment / Plan
Physical Exam
General: Not in acute distress
HEENT: Normocephalic
Respiratory: Clear to Auscultation Bilaterally
Cardiac: S1/S2 and Regular Rhythm
GI: Normal Bowel Sounds, Tender and Distended
Musculoskeletal: No Cyanosis and No Edema
Skin: Warm. Dry.
Neuro: AAO x 3 and Nonfocal/grossly intact
Psych: Calm

CT Abdomen/Pelvis Results, as per radiologist's report
IMPRESSION:
1. Negative for aortic dissection. Advanced aortic atherosclerotic changes as above.
2. Small bowel obstruction with transition point in the anterior abdomen immediately below the umbilicus, just to the left of midline as above.
3. Hepatic findings consistent with treated prostatic lesion as seen on previous examination. There is a 2.7 cm decreased attenuation lesion at this level on the delayed phase images. No abnormal FDG uptake at this level on prior PET/CT.
4. Cholelithiasis.
5. Splenomegaly.
6. 5 mm urinary bladder calculus

Assessment/Plan
#Presentation with abdominal pain, likely secondary from partial small bowel obstruction
-Lactic 2.6-->4.8-->1.5
-Okay to advance to low residue diet and see how patient does
-Continue IV fluids
-Surgery consulted, appreciate recommendations
-Dilaudid as needed for pain
-Zofran as needed for nausea vomiting
#History of colon ca/rectal cancer/adenocarcinoma of liver - known history of metastatic colon cancer on long-term palliative chemotherapy
-s/p hemicolectomy
-Follows with [facility]
-At present getting chemo at [facility], last chemo was on 01/08/24 (but was reportedly cut short)
#Urinary Retention
-Per nurse on January 09, 2024, it was difficult delgado catheter placement
-Urology consulted, evaluation and recommendations appreciated
-Patient passed voiding trial on January 11, 2024
-No Delgado Catheter required on discharge, but will need to follow-up with urology outpatient
-After discharge, if patient has not voided urine in 12 hours, or is urinating very little, please take him to the emergency room for urinary retention
# Anemia of chronic disease/chronic thrombocytopenia
-Suspected from chemo plus cancer
-Hemoglobin stable
-No active bleeding
-Continue to monitor
# Hyperkalemia/metabolic acidosis/acute kidney injury likely dehydration - ALL RESOLVED
-Admission BMP labwork: K5.5, CO2 16, BUN 23, creatinine 1.4
-Status post IV fluids
# DM-II with hyperglycemia
-Blood sugar elevated
-Resume patient's home Glipizide and Janumet
-Sliding scale insulin and accuchecks
# Hyperlipidemia
-Resume home statin
# Dementia
-Resume home Aricept
#Essential hypertension
-Blood pressure stable
-Lisinopril held in setting of recent hyperkalemia
# BPH
-Flomax held
DVT Prophylaxis: Heparin Subq
Code Status:DNR
More than 30 minutes spent in discharge including
Final examination of the patient
Summarizing hospital stay
Instructions for continuing care to all relevant caregivers
Preparation of discharge records, prescriptions, and referral forms
Total time spent (in minutes): 38
Anticipated Discharge: Today
Subjective/Interval History
-
Date of Service: January 11, 2024
Patient was seen and examined. He denied any abdominal pain or any other symptoms or complaints.
Objective Data
-
Labs:
Laboratory Results
01/11/24
07:34
WBC 3.6 L
Hgb 9.9 L
Hct 27.1 L
Plt Count 60 L
Sodium 139
Potassium 3.8
Chloride 115 H
Carbon Dioxide 22
BUN 19
Creatinine 1.1
Glucose 126 H
Calcium 8.5
Vital Signs:
Vital Signs
Temp Pulse Resp BP Pulse Ox
97.5 F 61 18 140/59 98
01/11/24 08:16 01/11/24 08:16 01/11/24 08:16 01/11/24 08:16 01/11/24 08:16
I&O
01/10/24 01/11/24 01/12/24
06:59 06:59 06:59
Intake Total 660 / 660 1480 / 1480
Output Total 2375 / 2375 3700 / 3700
Balance -1715 / -1715 -2220 / -2220
[2024-01-11 14:05] VITALS: BP 139/69; PULSE 80
--- NOTE | 2024-01-11 14:54 | W.DS.TRANS ---
DC Summary - [employer]
-
Discharge Instructions:
Discharge Diagnosis/Procedures Coronary artery calcifications as per CT Imaging
radiology report from hospitalization
Descending thoracic aorta calcifications as per
CT Imaging radiology report from hospitalization
Trace bilateral pleural effusions as per CT
Imaging radiology report from hospitalization
Non-obstructing 2 mm calculus in the mid right
kidney as per CT Imaging radiology report from
hospitalization
Bilateral renal cysts as per CT Imaging
radiology report from hospitalization
Partially Calcified Liver Lesion as per CT
Imaging radiology report from hospitalization
CT Abdomen/Pelvis Results, as per
radiologist's report
IMPRESSION:
1. Negative for aortic dissection. Advanced
aortic atherosclerotic changes as above.
2. Small bowel obstruction with transition
point in the anterior abdomen immediately below
the umbilicus, just to the left of midline as
above.
3. Hepatic findings consistent with treated
prostatic lesion as seen on previous examination
. There is a 2.7 cm decreased attenuation lesion
at this level on the delayed phase images. No
abnormal FDG uptake at this level on prior PET/
CT.
4. Cholelithiasis.
5. Splenomegaly.
6. 5 mm urinary bladder calculus
Diet Low Residue,Low Sodium
Activity As tolerated
Blood Work Recheck CBC, CMP, Magnesium and Phosphorus with
your primary care provider's office by Saturday,
January 13, 2024
Instructions: High blood pressure in adults
High blood pressure emergencies
Amlodipine
Lisinopril
Urinary retention - Discharge instructions
Urinary retention
Stand-Alone Forms:
Changes to Home Medications: Yes
Discharge Medications:
DC Medications w/original date entered in [email or web address]
tamsulosin 0.4 mg capsule 0.4 mg PO DAILY Urinary issue 03/02/21
ascorbic acid (vitamin C) 500 mg tablet (Vitamin C) 1,000 mg PO QPM Supplement 05/24/21
atorvastatin 80 mg tablet 80 mg PO DAILY High cholesterol 05/24/21
cyanocobalamin (vitamin B-12) 1,000 mcg tablet 1,000 mcg PO QPM Supplement 05/24/21
ferrous sulfate 325 mg (65 mg iron) tablet (FeroSul) 325 mg PO QPM Supplement 05/24/21
donepezil 5 mg tablet 5 mg PO HS Neurological Condition 01/08/24
glipizide 5 mg tablet 5 mg PO DAILY Diabetes 01/08/24
lisinopril 5 mg tablet 5 mg PO DAILY Blood Pressure 01/08/24
sitagliptin phosphate 50 mg-metformin 1,000 mg tablet (Janumet) 1 tab PO BID Diabetes 01/08/24
therapeutic multivitamin 1 tab PO DAILY Supplement 01/08/24
amlodipine 2.5 mg tablet 2.5 mg PO DAILY #30 tabs 01/11/24
Home Medication Changes
Lisinopril is being held (due to high potassium during your hospitalization) and should eventually be stopped if your primary care physician says you should stop it.
In lieu of Lisinopril, Amlodipine is being prescribed to help you control your blood pressure instead.
Pending Results: Yes
Additional Pending Results:
Final results of blood cultures from hospitalization
Total time spent discharging patient (in min): 38
[2024-01-11 15:00] VITALS: BP 140/69
--- NOTE | 2024-01-11 15:10 | PTOTSP ---
The patient was able to ambulate and perform stairs, patient and both reporting the patient is at his functional baseline. Neither patient or offer concerns regarding mobility upon return home. No PT needs identified at this time, will
sign off.
[2024-01-11] MEDS: GLUCOTROL 5 MG PO (15:20)
--- NOTE | 2024-01-15 17:03 | W.DCSUMMARY ---
Discharge Summary
Discharge Data
Date of Admission: 01/08/24
Date of Discharge: 01/11/24
Total time spent discharging patient (in min): 38
-
Pending Results: Yes
Additional Pending Results:
Final results of blood cultures from hospitalization
Hospital Course
83-year-old male with past medical history of colon cancer, adenocarcinoma of the liver, rectal cancer status post hemicolectomy at present getting chemo at [facility] presented with abdominal pain associate with distention since the day prior to
presentation. On the day of presentation, patient was getting chemotherapy at [facility] when he started vomiting and complained of excruciating abdominal pain. Surgery was consulted and suspected partial small bowel obstruction resulting from
adhesions versus chemo enteritis versus malignancy. Patient's lactic acidosis and elevated creatinine improved with increased amount of intravenous fluids. Patient had hyperkalemia which improved. Oncology was consulted. Patient had urinary
retention, Delgado was difficult to be placed therefore urology was consulted and Delgado catheter was placed. Patient passed voiding trial, he was able to be discharged without a delgado catheter, he was able to tolerate a diet, and was stable for
discharge.
Discharge Plan
-
Patient Disposition: Home (Routine Discharge)
Discharge Diagnosis/Procedures: Coronary artery calcifications as per CT Imaging radiology report from hospitalization
Descending thoracic aorta calcifications as per CT Imaging radiology report from hospitalization
Trace bilateral pleural effusions as per CT Imaging radiology report from hospitalization
Non-obstructing 2 mm calculus in the mid right kidney as per CT Imaging radiology report from hospitalization
Bilateral renal cysts as per CT Imaging radiology report from hospitalization
Partially Calcified Liver Lesion as per CT Imaging radiology report from hospitalization
CT Abdomen/Pelvis Results, as per radiologist's report
IMPRESSION:
1. Negative for aortic dissection. Advanced aortic atherosclerotic changes as above.
2. Small bowel obstruction with transition point in the anterior abdomen immediately below the umbilicus, just to the left of midline as above.
3. Hepatic findings consistent with treated prostatic lesion as seen on previous examination. There is a 2.7 cm decreased attenuation lesion at this level on the delayed phase images. No abnormal FDG uptake at this level on prior PET/CT.
4. Cholelithiasis.
5. Splenomegaly.
6. 5 mm urinary bladder calculus
Condition: Fair
Diet: Low Sodium and Low Residue
Activity: As tolerated
Blood Work: Recheck CBC, CMP, Magnesium and Phosphorus with your primary care provider's office by Saturday, January 13, 2024
Activity Restrictions/Additional Instructions:
If patient has not voided urine in 12 hours, or is urinating very little, please take him to the emergency room for urinary retention.
Recheck CBC, CMP, Magnesium and Phosphorus with your primary care provider's office by Saturday, January 13, 2024
Follow-up with and contact your oncologist in 1 to 2 days.
Instructions: High blood pressure in adults, High blood pressure emergencies, Amlodipine, Lisinopril, Urinary retention - Discharge instructions, Urinary retention
Referrals:
Michi Ross CRNP [Family Provider] - in less than 1 week
Darrel Pal MD [Active] - in two to three weeks (Urinary Retention Follow-up)
Gage Moore MD [Active] - in two to four weeks (Hospital follow-up)
Additional Discharge Medication Instructions: Lisinopril is being held (due to high potassium during your hospitalization) and should eventually be stopped if your primary care physician says you should stop it.
In lieu of Lisinopril, Amlodipine is being prescribed to help you control your blood pressure instead.
Prescriptions:
New
amlodipine 2.5 mg tablet
2.5 mg PO DAILY Qty: 30 0RF
Continued
tamsulosin 0.4 MG capsule
0.4 mg PO DAILY
atorvastatin 80 MG tablet
80 mg PO DAILY
cyanocobalamin (vitamin B-12) 1,000 MCG tablet
1,000 mcg PO QPM
ascorbic acid (vitamin C) [Vitamin C] 500 MG tablet
1,000 mg PO QPM
ferrous sulfate [FeroSul] 325 MG tablet
325 mg PO QPM
donepezil 5 mg Tablet
5 mg PO HS
therapeutic multivitamin Tablet
1 tab PO DAILY
glipizide 5 mg Tablet
5 mg PO DAILY
Janumet 50-1,000 mg Tablet
1 tab PO BID
Held
lisinopril 5 mg Tablet
5 mg PO DAILY
Hold Instructions: Resume on 02/15/24. Discuss with your primary care provider regarding whether or not to resume this medication, given that you had hyperkalemia during your hospitalization.
Discharge Orders:
Discharge Patient (As Directed); Ordered 01/11/24
Ordered By: Derrick Bourgeois
Discharge Date and Time
Discharge Date/Time: 01/11/24 18:10
Print Language: WALLISIAN
== END 2024-01-11 18:10 | disposition home or self-care (01) | DRG 389 ==
LOC: 4 WEST ACU 13:44
PROVIDERS: Nurse Practitioner Gerontology; Physician Assistant; Registered Nurse; ADMITTING PHYSICIAN Hospitalist; CONSULT PHYSICIAN Surgery; CONSULT PHYSICIAN Urology; EMERGENCY PHYSICIAN Emergency Medicine; FAMILY PHYSICIAN Nurse Practitioner Adult Health; OTHER PHYSICIAN Internal Medicine Hematology & Oncology
DX: K56.600 Partial intestinal obstruction, unspecified as to cause (principal); C20 Malignant neoplasm of rectum; C78.7 Secondary malignant neoplasm of liver and intrahepatic bile duct; E87.20 Acidosis, unspecified; D69.6 Thrombocytopenia, unspecified; E11.65 Type 2 diabetes mellitus with hyperglycemia; I10 Essential (primary) hypertension; Z66 Do not resuscitate; F03.A0 Unspecified dementia, mild, without behavioral disturbance, psychotic disturbance, mood disturbance, and anxiety; D63.0 Anemia in neoplastic disease; E86.0 Dehydration; D64.81 Anemia due to antineoplastic chemotherapy; T45.1X5A Adverse effect of antineoplastic and immunosuppressive drugs, initial encounter; I25.10 Atherosclerotic heart disease of native coronary artery without angina pectoris; N40.0 Benign prostatic hyperplasia without lower urinary tract symptoms; N21.0 Calculus in bladder; N28.1 Cyst of kidney, acquired; K80.20 Calculus of gallbladder without cholecystitis without obstruction; E78.00 Pure hypercholesterolemia, unspecified; E87.5 Hyperkalemia; R16.1 Splenomegaly, not elsewhere classified; R33.8 Other retention of urine; R35.1 Nocturia; R68.83 Chills (without fever); R79.89 Other specified abnormal findings of blood chemistry; Z79.84 Long term (current) use of oral hypoglycemic drugs; Z79.899 Other long term (current) drug therapy; Z90.49 Acquired absence of other specified parts of digestive tract; Z87.09 Personal history of other diseases of the respiratory system; Z88.0 Allergy status to penicillin
CPT/HCPCS: 36415; 74174; 74176; 80048; 80053; 82378; 82962; 83036; 83605; 83690; 83735; 84100; 84550; 85014; 85018; 85025; 85027; 87040; 87070; 93005; 96361; 96374; 97162; 99285; J7030; Q9967

== ENCOUNTER → 2024-01-13 14:14 | Outpatient (REF) | payer MEDICARE, OTHER, SELFPAY ==
[2024-01-13 15:16] LABS: % Basophils 0.3 % (0-2); % Eosinophils 2.2 % (0-6); % Monocytes 12.3 % (1.7-9.3); % Neutrophils 60.2 % (42.2-75.2); Absolute Eosinophils 0.1 10^3/uL (0-0.7); Absolute Lymphocytes 0.8 10^3/uL (1.2-3.4); Absolute Monocytes 0.4 10^3/uL (0.1-0.6); Hemoglobin 10.2 g/dL (13.0-18.0); Mean Corp Hgb Conc. 35.2 g/dL (33.0-37.0); Mean Corpuscular Hgb 35.8 pg (27.0-31.0); Mean Corpuscular Volume 101.8 fL (80.0-94.0); Mean Platelet Volume 10.7 fL (7.4-10.4); Nucleated Red Blood Cells % 0 % (-); Platelet Count 74 10^3/uL (130-400); Red Blood Cell Count 2.85 10^6/uL (4.70-6.10); Red Cell Dist. Width 14.2 % (11.5-14.5); White Blood Cell Count 3.2 10^3/uL (4.8-10.8)
[2024-01-13 16:25] LABS: ALT (SGPT) 33 U/L (0-50); AST (SGOT) 46 U/L (17-59); Albumin 3.4 g/dl (3.5-5.0); Alkaline Phosphatase 141 U/L (38-126); Blood Urea Nitrogen 15 mg/dl (9-20); Calcium 9.1 mg/dl (8.4-10.2); Carbon Dioxide 21 mmol/L (22-30); Chloride 108 mmol/L (98-107); Glucose 139 mg/dl (70-99); Magnesium 1.9 mg/dl (1.6-2.3); Phosphorus 3.1 mg/dl (2.5-4.5); Potassium 4.8 mmol/L (3.5-5.1); Sodium 136 mmol/L (135-145); Total Bilirubin 0.9 mg/dl (0.2-1.3); Total Protein 5.9 g/dl (6.3-8.2); eGFR > 60.00
== END ==
LOC: REG 14:14
PROVIDERS: ATTENDING PHYSICIAN Internal Medicine; FAMILY PHYSICIAN Nurse Practitioner Adult Health
DX: K56.609 Unspecified intestinal obstruction, unspecified as to partial versus complete obstruction (principal)
CPT/HCPCS: 36415; 80053; 83735; 84100; 85025

== ENCOUNTER 2024-01-16 22:12 | Emergency (ER) | payer MEDICARE, OTHER, SELFPAY ==
[2024-01-16 22:13] VITALS: BP 138/68
--- NOTE | 2024-01-16 22:29 | ED.GENMED ---
History of Present Illness
General
Chief Complaint: Skin Problem
Time Seen by Provider: 01/16/24 22:29
History of Present Illness
History of Present Illness:
HPI: Patient presents with rash that started 2 days ago. He was discharged from the hospital 5 days ago for a bowel obstruction at that time they switched him from lisinopril to amlodipine. Due to the rash, the had him stop the amlodipine.
However the rashes persisted. He went to urgent care yesterday and they put him on 20 mL of prednisone and his doctor had also recommended taking Esmer, Benadryl, and Pepcid. Despite all of these oral medication symptoms persist. The rash is
described as pruritic.
EXAM:
GENERAL: The patient appears generally weak
HEENT: Moist oral mucosa
CARDIOVASCULAR: No murmurs, normal heart rate, regular rhythm, No chest wall tenderness
PULMONARY: No respiratory distress, breath sounds are clear and equal
ABDOMEN: Soft with no peritoneal signs, no tenderness
NEUROLOGIC: Good strength all extremities, no coordination deficits
PSYCHIATRIC: Fair insight and judgment but he frequently looks to his to answer questions, mild cognitive impairment
EXTREMITIES: Nontender, no edema, moves all extremities equally
SKIN: Urticarial rash most notable to the torso, erythema noted to the face
TIME OF INITIAL ENCOUNTER: 10:30 PM
NUMBER AND COMPLEXITY OF PROBLEMS ADDRESSED AT THE ENCOUNTER
� Chronic conditions affecting care: High blood pressure, hyperlipidemia, has had bowel obstruction, rectal cancer, diabetes, colon cancer status post right hemicolectomy
� Acute Exacerbation and/or Progression of Chronic Illness: This is an acute problem
� Differential Diagnosis includes: Allergic reaction, medication reaction, cellulitis
AMOUNT AND/OR COMPLEXITY OF DATA TO BE REVIEWED AND ANALYZED
� I performed an independent evaluation of and my interpretation is:
EKG:
CT:
X-rays:
Laboratory Studies: White count 5.0, hemoglobin 10.1, platelets 93, glucose 181
Other:
� Review of other/old records: I reviewed records, the patient was just admitted here with bowel obstruction a week ago and lisinopril was switched to amlodipine
� Clinical information was obtained by an independent historian: I spoke to the for the majority of the history
� Prescriptions/Medications Considered but not given: Considered higher dose steroid however the patient is a diabetic and states that his blood sugars have been in the 200s
� Further testing considered but not performed: Considered further imaging however the patient had CT earlier in the day which was unremarkable
RISK OF COMPLICATIONS AND/OR MORBIDITY OR MORTALITY OF PATIENT MANAGEMENT
� Social determinants of health affecting care: Lives at home
� Discussion with other providers:
� Escalation of care including admission/observation vs risk of discharge considered: As patient is not improving with oral medications, will place IV and give IV meds. Labs relatively unremarkable. Blood sugar is 181. I
reassessed patient at 12 AM, urticaria of the torso persists and he still reports feeling itchy but overall the facial rash has improved. Will continue steroids.
Past History
Past History
ED Past Medical History: NIDDM and Other (Rectal cancer)
ED Past Surgical History: Other (Right hemicolectomy, I&D with chest abscess, small bowel resection)
Social History
Tobacco: Non-smoker
Alcohol: None
Personal:
Living: with family
Employment: Retired
Phy Exam
Physical Exam
Physical Exam:
See HPI
Course
Orders/Labs/Results
Orders:
Orders
01/16/24 22:39
Diphenhydramine [Benadryl] 25 mg IV NOW STA
Famotidine [Pepcid] 20 mg IV NOW STA
MethylPREDNISolone PF [Solu-Medrol Pf] 60 mg IV NOW STA
01/16/24 22:50
Complete Blood Count/With Diff Urgent
Comprehensive Metabolic Panel Urgent
Abnormal Lab Results
01/16/24
22:50
RBC 2.89 L 10^6/uL
(4.70-6.10)
Hgb 10.1 L g/dL
(13.0-18.0)
Hct 28.5 L %
(39.0-52.0)
MCV 98.6 H fL
(80.0-94.0)
MCH 34.9 H pg
(27.0-31.0)
Plt Count 93 L D 10^3/uL
(130-400)
MPV 11.1 H fL
(7.4-10.4)
Absolute Lymphs (auto) 0.7 L 10^3/uL
(1.2-3.4)
Lymphocytes % 14.4 L %
(20.5-51.1)
Monocytes % 11.0 H %
(1.7-9.3)
Sodium 134 L mmol/L
(135-145)
Glucose 181 H mg/dl
(70-99)
Alkaline Phosphatase 128 H U/L
(38-126)
Total Protein 6.1 L g/dl
(6.3-8.2)
01/16/24 22:50
01/16/24 22:50
Vital Signs
Initial and Last Documented VS:
Initial Vital Signs
Temp Pulse Resp BP Pulse Ox
98.3 F 73 19 138/68 98
01/16/24 22:13 01/16/24 22:13 01/16/24 22:13 01/16/24 22:13 01/16/24 22:13
Last Documented Vital Signs
Temp Pulse Resp BP Pulse Ox
98.3 F 73 19 160/71 99
01/16/24 22:13 01/16/24 22:13 01/16/24 22:13 01/16/24 23:21 01/16/24 23:28
*Critical Care Note
Total Time (30-74mins, 75-104mins- exclusive of procedures): Not Applicable
ED Attending Note
-
Portions of this chart may have been created with voice recognition software.� Occasional wrong word or��sound alike� substitutions may have occurred due to the inherent limitations of voice recognition software.
Discharge Plan
Departure
Patient Disposition: Home (Routine Discharge)
Date of Disposition: 01/17/24
Time of Disposition: 00:08
Patient with high blood pressure during this ER visit?: Yes
Discharge Problem:
Allergic reaction
Instructions: Skin Rash (DC)
Prescriptions:
New
prednisone 20 mg tablet
20 mg PO DAILY Qty: 3 0RF
No Action
tamsulosin 0.4 MG capsule
0.4 mg PO DAILY
atorvastatin 80 MG tablet
80 mg PO DAILY
cyanocobalamin (vitamin B-12) 1,000 MCG tablet
1,000 mcg PO QPM
ascorbic acid (vitamin C) [Vitamin C] 500 MG tablet
1,000 mg PO QPM
ferrous sulfate [FeroSul] 325 MG tablet
325 mg PO QPM
donepezil 5 mg Tablet
5 mg PO HS
therapeutic multivitamin Tablet
1 tab PO DAILY
lisinopril 5 mg Tablet
5 mg PO DAILY
glipizide 5 mg Tablet
5 mg PO DAILY
Janumet 50-1,000 mg Tablet
1 tab PO BID
Referrals:
Michi Ross CRNP [Family Provider] -
Activity Restrictions/Additional Instructions:
The cause of your symptoms is unclear. White blood cell count is normal, hemoglobin level is at baseline, kidney function is borderline, glucose is 181. I recommend that you take the prednisone 20 mg that you already have along with the new
prescription of 20 mg of prednisone at the same time tomorrow morning. I then gave you 2 additional tablets for 2 additional days (Saturday and Saturday).
Interventions
Interventions:
*Risk Screen - Suicide Last Done: 01/16/24 22:13
*General Assessment Last Done: 01/16/24 22:13
*Neglect/Abuse Screening Last Done: 01/16/24 22:13
ED- Fall Risk Assessment Last Done: 01/16/24 23:28
ED-Skin Assessment Last Done: 01/16/24 23:28
Discharge Date and Time
Print Language: MALTESE
[2024-01-16 22:59] LABS: % Basophils 0.4 % (0-2); % Eosinophils 0.4 % (0-6); % Immature Granulocytes 0.2 % (0-0.5); % Lymphocytes 14.4 % (20.5-51.1); % Neutrophils 73.6 % (42.2-75.2); Absolute Lymphocytes 0.7 10^3/uL (1.2-3.4); Absolute Monocytes 0.6 10^3/uL (0.1-0.6); Absolute Neutrophils 3.7 10^3/uL (1.4-6.5); Hematocrit 28.5 % (39.0-52.0); Hemoglobin 10.1 g/dL (13.0-18.0); Mean Corp Hgb Conc. 35.4 g/dL (33.0-37.0); Mean Corpuscular Hgb 34.9 pg (27.0-31.0); Mean Corpuscular Volume 98.6 fL (80.0-94.0); Mean Platelet Volume 11.1 fL (7.4-10.4); Nucleated Red Blood Cells % 0 % (-); Platelet Count 93 10^3/uL (130-400); Red Blood Cell Count 2.89 10^6/uL (4.70-6.10); Red Cell Dist. Width 14.2 % (11.5-14.5)
[2024-01-16 23:10] LABS: ALT (SGPT) 24 U/L (0-50); AST (SGOT) 34 U/L (17-59); Albumin 3.5 g/dl (3.5-5.0); Alkaline Phosphatase 128 U/L (38-126); Blood Urea Nitrogen 20 mg/dl (9-20); Calcium 9.6 mg/dl (8.4-10.2); Carbon Dioxide 23 mmol/L (22-30); Chloride 105 mmol/L (98-107); Glucose 181 mg/dl (70-99); Potassium 4.9 mmol/L (3.5-5.1); Sodium 134 mmol/L (135-145); Total Bilirubin 0.8 mg/dl (0.2-1.3); Total Protein 6.1 g/dl (6.3-8.2); eGFR 55.19
[2024-01-16] MEDS: BENADRYL 25 MG IV (23:11)
[2024-01-16] MEDS: PEPCID 20 MG IV (23:11)
[2024-01-16] MEDS: SOLU-MEDROL PF 60 MG IV (23:12)
[2024-01-16 23:21] VITALS: BP 160/71
[2024-01-16 23:27] VITALS: BMI 24.7
== END 2024-01-17 00:55 | disposition home or self-care (01) ==
LOC: EMR 22:12
PROVIDERS: EMERGENCY PHYSICIAN Emergency Medicine; FAMILY PHYSICIAN Nurse Practitioner Adult Health
DX: T78.40XA Allergy, unspecified, initial encounter (principal); Y92.9 Unspecified place or not applicable; E11.9 Type 2 diabetes mellitus without complications; Z85.048 Personal history of other malignant neoplasm of rectum, rectosigmoid junction, and anus; Z90.49 Acquired absence of other specified parts of digestive tract
CPT/HCPCS: 99282; 96374; 96375; 80053; 85025

== ENCOUNTER → 2024-01-18 10:55 | Outpatient (REF) | payer MEDICARE, OTHER, SELFPAY ==
[2024-01-18 13:04] LABS: ALT (SGPT) 23 U/L (0-50); AST (SGOT) 27 U/L (17-59); Albumin 3.4 g/dl (3.5-5.0); Alkaline Phosphatase 113 U/L (38-126); Blood Urea Nitrogen 28 mg/dl (9-20); Calcium 9.5 mg/dl (8.4-10.2); Carbon Dioxide 25 mmol/L (22-30); Chloride 108 mmol/L (98-107); Glucose 117 mg/dl (70-99); Potassium 4.1 mmol/L (3.5-5.1); Sodium 137 mmol/L (135-145); Total Bilirubin 0.5 mg/dl (0.2-1.3); Total Protein 5.7 g/dl (6.3-8.2); eGFR 50.49
[2024-01-18 13:09] LABS: % Basophils 0.3 % (0-2); % Eosinophils 0.7 % (0-6); % Immature Granulocytes 0.3 % (0-0.5); % Lymphocytes 25.2 % (20.5-51.1); % Monocytes 9.8 % (1.7-9.3); % Neutrophils 63.7 % (42.2-75.2); Absolute Lymphocytes 1.5 10^3/uL (1.2-3.4); Absolute Monocytes 0.6 10^3/uL (0.1-0.6); Absolute Neutrophils 3.7 10^3/uL (1.4-6.5); Hematocrit 28.9 % (39.0-52.0); Hemoglobin 9.9 g/dL (13.0-18.0); Mean Corp Hgb Conc. 34.3 g/dL (33.0-37.0); Mean Corpuscular Hgb 34.6 pg (27.0-31.0); Mean Platelet Volume 11.2 fL (7.4-10.4); Nucleated Red Blood Cells % 0 % (-); Platelet Count 86 10^3/uL (130-400); Red Blood Cell Count 2.86 10^6/uL (4.70-6.10); Red Cell Dist. Width 13.9 % (11.5-14.5); White Blood Cell Count 5.8 10^3/uL (4.8-10.8)
[2024-01-18 14:04] LABS: 24 Hour Urine Total Volume 950 ml
[2024-01-18 14:37] LABS: Urine Protein 316 mg/dl (0-12)
[2024-01-18 15:14] LABS: CEA 11.1 ng/ml
== END ==
LOC: REG 10:55
PROVIDERS: ATTENDING PHYSICIAN Internal Medicine Hematology & Oncology; FAMILY PHYSICIAN Nurse Practitioner Adult Health; REFERRING PHYSICIAN Nurse Practitioner Adult Health
DX: C18.4 Malignant neoplasm of transverse colon (principal); C78.7 Secondary malignant neoplasm of liver and intrahepatic bile duct; R80.9 Proteinuria, unspecified
CPT/HCPCS: 36415; 80053; 81050; 82378; 84156; 85025

== ENCOUNTER → 2024-02-03 10:39 | Outpatient (REF) | payer MEDICARE, OTHER, SELFPAY ==
[2024-02-03 15:57] LABS: ALT (SGPT) 26 U/L (0-50); AST (SGOT) 35 U/L (17-59); Albumin 3.6 g/dl (3.5-5.0); Alkaline Phosphatase 131 U/L (38-126); Blood Urea Nitrogen 17 mg/dl (9-20); Calcium 9.7 mg/dl (8.4-10.2); Carbon Dioxide 20 mmol/L (22-30); Chloride 109 mmol/L (98-107); Glucose 171 mg/dl (70-99); Sodium 138 mmol/L (135-145); Total Bilirubin 0.8 mg/dl (0.2-1.3); eGFR 55.19
[2024-02-03 16:29] LABS: % Basophils 0.4 % (0-2); % Eosinophils 3.6 % (0-6); % Immature Granulocytes 0.2 % (0-0.5); % Lymphocytes 22.8 % (20.5-51.1); % Monocytes 8.2 % (1.7-9.3); % Neutrophils 64.8 % (42.2-75.2); Absolute Eosinophils 0.2 10^3/uL (0-0.7); Absolute Lymphocytes 1.2 10^3/uL (1.2-3.4); Absolute Monocytes 0.4 10^3/uL (0.1-0.6); Absolute Neutrophils 3.5 10^3/uL (1.4-6.5); Hemoglobin 10.9 g/dL (13.0-18.0); Mean Corp Hgb Conc. 34.1 g/dL (33.0-37.0); Mean Corpuscular Hgb 35.3 pg (27.0-31.0); Mean Corpuscular Volume 103.6 fL (80.0-94.0); Mean Platelet Volume 11.6 fL (7.4-10.4); Nucleated Red Blood Cells % 0 % (-); Platelet Count 76 10^3/uL (130-400); Red Blood Cell Count 3.09 10^6/uL (4.70-6.10); Red Cell Dist. Width 13.5 % (11.5-14.5); White Blood Cell Count 5.4 10^3/uL (4.8-10.8)
[2024-02-03 20:00] LABS: CEA 11.1 ng/ml
== END ==
LOC: HWLAB 10:39
PROVIDERS: ATTENDING PHYSICIAN Internal Medicine Hematology & Oncology; FAMILY PHYSICIAN Nurse Practitioner Adult Health
DX: C18.4 Malignant neoplasm of transverse colon (principal); C78.7 Secondary malignant neoplasm of liver and intrahepatic bile duct; R80.9 Proteinuria, unspecified
CPT/HCPCS: 36415; 80053; 82378; 85025

== ENCOUNTER → 2024-02-15 10:51 | Outpatient (REF) | payer MEDICARE, OTHER, SELFPAY ==
[2024-02-15 12:54] LABS: ALT (SGPT) 26 U/L (0-50); AST (SGOT) 35 U/L (17-59); Albumin 3.5 g/dl (3.5-5.0); Alkaline Phosphatase 100 U/L (38-126); Blood Urea Nitrogen 28 mg/dl (9-20); Calcium 9.6 mg/dl (8.4-10.2); Carbon Dioxide 19 mmol/L (22-30); Chloride 108 mmol/L (98-107); Glucose 139 mg/dl (70-99); Potassium 4.6 mmol/L (3.5-5.1); Sodium 141 mmol/L (135-145); Total Bilirubin 0.8 mg/dl (0.2-1.3); eGFR 55.19
[2024-02-15 13:25] LABS: CEA 11.5 ng/ml
[2024-02-15 13:58] LABS: Urine Protein 93 mg/dl (0-12)
[2024-02-15 14:16] LABS: % Basophils 0.9 % (0-2); % Eosinophils 2.6 % (0-6); % Immature Granulocytes 0.4 % (0-0.5); % Lymphocytes 34.5 % (20.5-51.1); % Monocytes 11.9 % (1.7-9.3); % Neutrophils 49.7 % (42.2-75.2); 24 Hour Urine Total Volume 1500 ml; Absolute Eosinophils 0.1 10^3/uL (0-0.7); Absolute Lymphocytes 0.8 10^3/uL (1.2-3.4); Absolute Monocytes 0.3 10^3/uL (0.1-0.6); Absolute Neutrophils 1.2 10^3/uL (1.4-6.5); Hematocrit 29.5 % (39.0-52.0); Hemoglobin 10.3 g/dL (13.0-18.0); Mean Corp Hgb Conc. 34.9 g/dL (33.0-37.0); Mean Corpuscular Hgb 35.4 pg (27.0-31.0); Mean Corpuscular Volume 101.4 fL (80.0-94.0); Mean Platelet Volume 11.2 fL (7.4-10.4); Nucleated Red Blood Cells % 0 % (-); Platelet Count 57 10^3/uL (130-400); Red Blood Cell Count 2.91 10^6/uL (4.70-6.10); Red Cell Dist. Width 13.1 % (11.5-14.5); White Blood Cell Count 2.4 10^3/uL (4.8-10.8)
== END ==
LOC: REG 10:51
PROVIDERS: ATTENDING PHYSICIAN Internal Medicine Hematology & Oncology; FAMILY PHYSICIAN Nurse Practitioner Adult Health
DX: C18.4 Malignant neoplasm of transverse colon (principal); C78.7 Secondary malignant neoplasm of liver and intrahepatic bile duct; R80.9 Proteinuria, unspecified
CPT/HCPCS: 36415; 80053; 81050; 82378; 84156; 85025

== ENCOUNTER → 2024-02-21 10:34 | Outpatient (REF) | payer MEDICARE, OTHER, SELFPAY ==
[2024-02-21 16:04] LABS: % Basophils 0.7 % (0-2); % Eosinophils 1.5 % (0-6); % Immature Granulocytes 0.2 % (0-0.5); % Lymphocytes 28.6 % (20.5-51.1); % Monocytes 10.4 % (1.7-9.3); % Neutrophils 58.6 % (42.2-75.2); Absolute Eosinophils 0.1 10^3/uL (0-0.7); Absolute Lymphocytes 1.2 10^3/uL (1.2-3.4); Absolute Monocytes 0.4 10^3/uL (0.1-0.6); Absolute Neutrophils 2.4 10^3/uL (1.4-6.5); Hematocrit 30.4 % (39.0-52.0); Hemoglobin 10.5 g/dL (13.0-18.0); Mean Corp Hgb Conc. 34.5 g/dL (33.0-37.0); Mean Corpuscular Volume 101.3 fL (80.0-94.0); Mean Platelet Volume 11.6 fL (7.4-10.4); Nucleated Red Blood Cells % 0 % (-); Platelet Count 81 10^3/uL (130-400); Red Cell Dist. Width 13.5 % (11.5-14.5); White Blood Cell Count 4.1 10^3/uL (4.8-10.8)
[2024-02-21 16:10] LABS: ALT (SGPT) 27 U/L (0-50); AST (SGOT) 42 U/L (17-59); Albumin 3.6 g/dl (3.5-5.0); Alkaline Phosphatase 121 U/L (38-126); Blood Urea Nitrogen 27 mg/dl (9-20); Calcium 9.5 mg/dl (8.4-10.2); Carbon Dioxide 20 mmol/L (22-30); Chloride 111 mmol/L (98-107); Glucose 74 mg/dl (70-99); Sodium 141 mmol/L (135-145); Total Bilirubin 0.6 mg/dl (0.2-1.3); Total Protein 6.3 g/dl (6.3-8.2); eGFR 46.48
[2024-02-21 16:42] LABS: CEA 9.56 ng/ml
== END ==
LOC: HWLAB 10:34
PROVIDERS: ATTENDING PHYSICIAN Internal Medicine Hematology & Oncology; FAMILY PHYSICIAN Nurse Practitioner Adult Health
DX: R80.9 Proteinuria, unspecified (principal); C18.4 Malignant neoplasm of transverse colon; C78.7 Secondary malignant neoplasm of liver and intrahepatic bile duct
CPT/HCPCS: 36415; 80053; 82378; 85025

== ENCOUNTER → 2024-02-29 10:45 | Outpatient (REF) | payer MEDICARE, OTHER, SELFPAY ==
[2024-02-29 13:07] LABS: ALT (SGPT) 33 U/L (0-50); AST (SGOT) 44 U/L (17-59); Albumin 3.8 g/dl (3.5-5.0); Alkaline Phosphatase 135 U/L (38-126); Blood Urea Nitrogen 22 mg/dl (9-20); Calcium 9.9 mg/dl (8.4-10.2); Carbon Dioxide 23 mmol/L (22-30); Chloride 108 mmol/L (98-107); Glucose 129 mg/dl (70-99); Potassium 5.2 mmol/L (3.5-5.1); Sodium 143 mmol/L (135-145); Total Bilirubin 0.6 mg/dl (0.2-1.3); Total Protein 6.5 g/dl (6.3-8.2); eGFR 46.48
[2024-02-29 13:12] LABS: % Basophils 0.5 % (0-2); % Eosinophils 1.9 % (0-6); % Immature Granulocytes 0.3 % (0-0.5); % Lymphocytes 28.2 % (20.5-51.1); % Monocytes 12.2 % (1.7-9.3); % Neutrophils 56.9 % (42.2-75.2); Absolute Eosinophils 0.1 10^3/uL (0-0.7); Absolute Lymphocytes 1.1 10^3/uL (1.2-3.4); Absolute Monocytes 0.5 10^3/uL (0.1-0.6); Absolute Neutrophils 2.1 10^3/uL (1.4-6.5); CEA 9.08 ng/ml; Hematocrit 31.7 % (39.0-52.0); Hemoglobin 10.7 g/dL (13.0-18.0); Mean Corp Hgb Conc. 33.8 g/dL (33.0-37.0); Mean Corpuscular Hgb 34.1 pg (27.0-31.0); Mean Platelet Volume 11.5 fL (7.4-10.4); Nucleated Red Blood Cells % 0 % (-); Platelet Count 98 10^3/uL (130-400); Red Blood Cell Count 3.14 10^6/uL (4.70-6.10); Red Cell Dist. Width 13.5 % (11.5-14.5); White Blood Cell Count 3.8 10^3/uL (4.8-10.8)
== END ==
LOC: REG 10:45
PROVIDERS: ATTENDING PHYSICIAN Internal Medicine Hematology & Oncology; FAMILY PHYSICIAN Nurse Practitioner Adult Health
DX: C18.4 Malignant neoplasm of transverse colon (principal); C78.7 Secondary malignant neoplasm of liver and intrahepatic bile duct; R80.9 Proteinuria, unspecified
CPT/HCPCS: 36415; 80053; 82378; 85025

== ENCOUNTER → 2024-03-16 12:13 | Outpatient (REF) | payer MEDICARE, OTHER, SELFPAY ==
[2024-03-16 16:03] LABS: % Basophils 0.4 % (0-2); % Eosinophils 1.3 % (0-6); % Immature Granulocytes 0.2 % (0-0.5); % Lymphocytes 20.4 % (20.5-51.1); % Neutrophils 68.7 % (42.2-75.2); Absolute Eosinophils 0.1 10^3/uL (0-0.7); Absolute Lymphocytes 0.9 10^3/uL (1.2-3.4); Absolute Monocytes 0.4 10^3/uL (0.1-0.6); Absolute Neutrophils 3.1 10^3/uL (1.4-6.5); Hematocrit 31.8 % (39.0-52.0); Hemoglobin 10.9 g/dL (13.0-18.0); Mean Corp Hgb Conc. 34.3 g/dL (33.0-37.0); Mean Corpuscular Hgb 34.6 pg (27.0-31.0); Mean Platelet Volume 11.6 fL (7.4-10.4); Nucleated Red Blood Cells % 0 % (-); Platelet Count 63 10^3/uL (130-400); Red Blood Cell Count 3.15 10^6/uL (4.70-6.10); Red Cell Dist. Width 13.2 % (11.5-14.5); White Blood Cell Count 4.6 10^3/uL (4.8-10.8)
[2024-03-16 16:05] LABS: ALT (SGPT) 31 U/L (0-50); AST (SGOT) 40 U/L (17-59); Albumin 3.8 g/dl (3.5-5.0); Alkaline Phosphatase 154 U/L (38-126); Blood Urea Nitrogen 29 mg/dl (9-20); Calcium 9.7 mg/dl (8.4-10.2); Carbon Dioxide 21 mmol/L (22-30); Chloride 110 mmol/L (98-107); Glucose 136 mg/dl (70-99); Potassium 4.9 mmol/L (3.5-5.1); Sodium 142 mmol/L (135-145); Total Bilirubin 0.7 mg/dl (0.2-1.3); Total Protein 6.4 g/dl (6.3-8.2); eGFR 55.19
[2024-03-16 19:41] LABS: CEA 10.5 ng/ml
== END ==
LOC: HWLAB 12:13
PROVIDERS: ATTENDING PHYSICIAN Internal Medicine Hematology & Oncology
DX: C18.4 Malignant neoplasm of transverse colon (principal); C78.7 Secondary malignant neoplasm of liver and intrahepatic bile duct; R80.9 Proteinuria, unspecified
CPT/HCPCS: 36415; 80053; 82378; 85025

== ENCOUNTER → 2024-03-21 10:41 | Outpatient (REF) | payer MEDICARE, OTHER, SELFPAY ==
[2024-03-21 12:16] LABS: ALT (SGPT) 31 U/L (0-50); AST (SGOT) 38 U/L (17-59); Albumin 3.9 g/dl (3.5-5.0); Alkaline Phosphatase 140 U/L (38-126); Blood Urea Nitrogen 27 mg/dl (9-20); Calcium 9.7 mg/dl (8.4-10.2); Carbon Dioxide 23 mmol/L (22-30); Chloride 108 mmol/L (98-107); Glucose 124 mg/dl (70-99); HDL Cholesterol 44 mg/dl; LDL Cholesterol, Calculated 78 mg/dl; Potassium 4.3 mmol/L (3.5-5.1); Sodium 144 mmol/L (135-145); Total Bilirubin 0.5 mg/dl (0.2-1.3); Total Cholesterol 138 mg/dl (50-199); Total Protein 6.6 g/dl (6.3-8.2); Triglyceride 83 mg/dl (10-149); Very Low Density Lipoprotein 16 mg/dl (0-30); eGFR 55.19
[2024-03-21 12:17] LABS: % Basophils 0.5 % (0-2); % Eosinophils 1.6 % (0-6); % Lymphocytes 26.4 % (20.5-51.1); % Neutrophils 62.5 % (42.2-75.2); Absolute Eosinophils 0.1 10^3/uL (0-0.7); Absolute Monocytes 0.3 10^3/uL (0.1-0.6); Absolute Neutrophils 2.3 10^3/uL (1.4-6.5); Hemoglobin 10.9 g/dL (13.0-18.0); Mean Corp Hgb Conc. 34.1 g/dL (33.0-37.0); Mean Corpuscular Hgb 33.3 pg (27.0-31.0); Mean Corpuscular Volume 97.9 fL (80.0-94.0); Mean Platelet Volume 11.3 fL (7.4-10.4); Nucleated Red Blood Cells % 0 % (-); Platelet Count 99 10^3/uL (130-400); Red Blood Cell Count 3.27 10^6/uL (4.70-6.10); Red Cell Dist. Width 13.1 % (11.5-14.5); White Blood Cell Count 3.7 10^3/uL (4.8-10.8)
[2024-03-21 12:40] LABS: CEA 9.58 ng/ml
[2024-03-21 13:13] LABS: Glycohemoglobin (HgbA1c) 7.2 % (4.0-5.6)
== END ==
LOC: REG 10:41
PROVIDERS: ATTENDING PHYSICIAN Nurse Practitioner Adult Health; FAMILY PHYSICIAN Internal Medicine Hematology & Oncology
DX: C18.4 Malignant neoplasm of transverse colon (principal); C78.7 Secondary malignant neoplasm of liver and intrahepatic bile duct; R80.9 Proteinuria, unspecified; E11.69 Type 2 diabetes mellitus with other specified complication; I10 Essential (primary) hypertension; E87.5 Hyperkalemia
CPT/HCPCS: 36415; 80053; 80061; 82378; 83036; 85025

== ENCOUNTER → 2024-04-06 10:58 | Outpatient (REF) | payer MEDICARE, OTHER, SELFPAY ==
[2024-04-06 16:36] LABS: ALT (SGPT) 31 U/L (0-50); AST (SGOT) 39 U/L (17-59); Albumin 3.9 g/dl (3.5-5.0); Alkaline Phosphatase 140 U/L (38-126); Blood Urea Nitrogen 29 mg/dl (9-20); Calcium 9.6 mg/dl (8.4-10.2); Carbon Dioxide 21 mmol/L (22-30); Chloride 109 mmol/L (98-107); Glucose 165 mg/dl (70-99); Potassium 4.8 mmol/L (3.5-5.1); Sodium 143 mmol/L (135-145); Total Bilirubin 0.6 mg/dl (0.2-1.3); Total Protein 6.7 g/dl (6.3-8.2); eGFR 46.48
[2024-04-06 17:38] LABS: % Basophils 0.7 % (0-2); % Eosinophils 0.7 % (0-6); % Immature Granulocytes 0.2 % (0-0.5); % Lymphocytes 24.9 % (20.5-51.1); % Monocytes 7.8 % (1.7-9.3); % Neutrophils 65.7 % (42.2-75.2); Absolute Lymphocytes 1.1 10^3/uL (1.2-3.4); Absolute Monocytes 0.3 10^3/uL (0.1-0.6); Absolute Neutrophils 2.8 10^3/uL (1.4-6.5); Hematocrit 32.8 % (39.0-52.0); Hemoglobin 11.1 g/dL (13.0-18.0); Mean Corp Hgb Conc. 33.8 g/dL (33.0-37.0); Mean Corpuscular Hgb 34.2 pg (27.0-31.0); Mean Corpuscular Volume 100.9 fL (80.0-94.0); Mean Platelet Volume 11.8 fL (7.4-10.4); Nucleated Red Blood Cells % 0 % (-); Platelet Count 61 10^3/uL (130-400); Red Blood Cell Count 3.25 10^6/uL (4.70-6.10); White Blood Cell Count 4.2 10^3/uL (4.8-10.8)
[2024-04-06 20:18] LABS: CEA 12.2 ng/ml
== END ==
LOC: HWLAB 10:58
PROVIDERS: ATTENDING PHYSICIAN Internal Medicine Hematology & Oncology; FAMILY PHYSICIAN Nurse Practitioner Adult Health
DX: C18.4 Malignant neoplasm of transverse colon (principal); C78.7 Secondary malignant neoplasm of liver and intrahepatic bile duct; R80.9 Proteinuria, unspecified
CPT/HCPCS: 36415; 80053; 82378; 85025

== ENCOUNTER → 2024-04-13 11:11 | Outpatient (REF) | payer MEDICARE, OTHER, SELFPAY ==
[2024-04-13 16:19] LABS: ALT (SGPT) 33 U/L (0-50); AST (SGOT) 42 U/L (17-59); Albumin 3.7 g/dl (3.5-5.0); Alkaline Phosphatase 129 U/L (38-126); Blood Urea Nitrogen 22 mg/dl (9-20); Calcium 9.2 mg/dl (8.4-10.2); Carbon Dioxide 22 mmol/L (22-30); Chloride 107 mmol/L (98-107); Glucose 96 mg/dl (70-99); Potassium 4.7 mmol/L (3.5-5.1); Sodium 140 mmol/L (135-145); Total Protein 6.5 g/dl (6.3-8.2); eGFR 50.49
[2024-04-13 16:28] LABS: % Basophils 0.6 % (0-2); % Eosinophils 1.7 % (0-6); % Lymphocytes 34.6 % (20.5-51.1); % Monocytes 12.2 % (1.7-9.3); % Neutrophils 50.9 % (42.2-75.2); Absolute Eosinophils 0.1 10^3/uL (0-0.7); Absolute Lymphocytes 1.2 10^3/uL (1.2-3.4); Absolute Monocytes 0.4 10^3/uL (0.1-0.6); Absolute Neutrophils 1.8 10^3/uL (1.4-6.5); Hematocrit 31.4 % (39.0-52.0); Hemoglobin 10.8 g/dL (13.0-18.0); Mean Corp Hgb Conc. 34.4 g/dL (33.0-37.0); Nucleated Red Blood Cells % 0 % (-); Platelet Count 93 10^3/uL (130-400); Red Blood Cell Count 3.27 10^6/uL (4.70-6.10); Red Cell Dist. Width 13.2 % (11.5-14.5); White Blood Cell Count 3.4 10^3/uL (4.8-10.8)
[2024-04-13 19:49] LABS: CEA 10.7 ng/ml
== END ==
LOC: HWLAB 11:11
PROVIDERS: ATTENDING PHYSICIAN Internal Medicine Hematology & Oncology; FAMILY PHYSICIAN Nurse Practitioner Adult Health
DX: C18.4 Malignant neoplasm of transverse colon (principal); C78.7 Secondary malignant neoplasm of liver and intrahepatic bile duct; R80.9 Proteinuria, unspecified
CPT/HCPCS: 36415; 80053; 82378; 85025

== ENCOUNTER → 2024-04-27 13:53 | Outpatient (REF) | payer MEDICARE, OTHER, SELFPAY ==
[2024-04-27 15:44] LABS: % Basophils 0.2 % (0-2); % Eosinophils 0.8 % (0-6); % Immature Granulocytes 0.2 % (0-0.5); % Lymphocytes 21.1 % (20.5-51.1); % Monocytes 6.4 % (1.7-9.3); % Neutrophils 71.3 % (42.2-75.2); Absolute Lymphocytes 1.1 10^3/uL (1.2-3.4); Absolute Monocytes 0.3 10^3/uL (0.1-0.6); Absolute Neutrophils 3.6 10^3/uL (1.4-6.5); Hematocrit 34.7 % (39.0-52.0); Hemoglobin 11.6 g/dL (13.0-18.0); Mean Corp Hgb Conc. 33.4 g/dL (33.0-37.0); Mean Corpuscular Hgb 33.2 pg (27.0-31.0); Mean Corpuscular Volume 99.4 fL (80.0-94.0); Mean Platelet Volume 11.7 fL (7.4-10.4); Nucleated Red Blood Cells % 0 % (-); Platelet Count 72 10^3/uL (130-400); Red Blood Cell Count 3.49 10^6/uL (4.70-6.10); Red Cell Dist. Width 13.1 % (11.5-14.5)
[2024-04-27 15:47] LABS: ALT (SGPT) 36 U/L (0-50); AST (SGOT) 42 U/L (17-59); Albumin 4.1 g/dl (3.5-5.0); Alkaline Phosphatase 110 U/L (38-126); Blood Urea Nitrogen 22 mg/dl (9-20); Calcium 9.5 mg/dl (8.4-10.2); Carbon Dioxide 22 mmol/L (22-30); Chloride 106 mmol/L (98-107); Glucose 126 mg/dl (70-99); Potassium 5.1 mmol/L (3.5-5.1); Sodium 142 mmol/L (135-145); Total Bilirubin 0.8 mg/dl (0.2-1.3); eGFR 50.49
[2024-04-27 16:13] LABS: CEA 10.3 ng/ml
== END ==
LOC: REG 13:53
PROVIDERS: ATTENDING PHYSICIAN Internal Medicine Hematology & Oncology
DX: C18.4 Malignant neoplasm of transverse colon (principal); C78.7 Secondary malignant neoplasm of liver and intrahepatic bile duct; R80.9 Proteinuria, unspecified
CPT/HCPCS: 36415; 80053; 82378; 85025

== ENCOUNTER → 2024-05-11 10:57 | Outpatient (REF) | payer MEDICARE, OTHER, SELFPAY ==
[2024-05-11 16:20] LABS: ALT (SGPT) 32 U/L (0-50); AST (SGOT) 42 U/L (17-59); Albumin 3.9 g/dl (3.5-5.0); Alkaline Phosphatase 110 U/L (38-126); Blood Urea Nitrogen 22 mg/dl (9-20); Calcium 9.3 mg/dl (8.4-10.2); Carbon Dioxide 23 mmol/L (22-30); Chloride 106 mmol/L (98-107); Glucose 142 mg/dl (70-99); Potassium 4.5 mmol/L (3.5-5.1); Sodium 138 mmol/L (135-145); Total Bilirubin 0.6 mg/dl (0.2-1.3); Total Protein 6.8 g/dl (6.3-8.2); eGFR 46.48
[2024-05-11 16:37] LABS: % Basophils 0.5 % (0-2); % Eosinophils 1.5 % (0-6); % Immature Granulocytes 0.2 % (0-0.5); % Lymphocytes 27.1 % (20.5-51.1); % Monocytes 10.4 % (1.7-9.3); % Neutrophils 60.3 % (42.2-75.2); Absolute Eosinophils 0.1 10^3/uL (0-0.7); Absolute Lymphocytes 1.1 10^3/uL (1.2-3.4); Absolute Monocytes 0.4 10^3/uL (0.1-0.6); Absolute Neutrophils 2.5 10^3/uL (1.4-6.5); Hematocrit 35.4 % (39.0-52.0); Hemoglobin 11.7 g/dL (13.0-18.0); Mean Corp Hgb Conc. 33.1 g/dL (33.0-37.0); Mean Corpuscular Hgb 33.5 pg (27.0-31.0); Mean Corpuscular Volume 101.4 fL (80.0-94.0); Nucleated Red Blood Cells % 0 % (-); Red Blood Cell Count 3.49 10^6/uL (4.70-6.10); Red Cell Dist. Width 13.7 % (11.5-14.5); White Blood Cell Count 4.1 10^3/uL (4.8-10.8)
[2024-05-11 16:50] LABS: CEA 10.6 ng/ml
[2024-05-11 17:04] LABS: Mean Platelet Volume 11.5 fL (7.4-10.4); Platelet Count 81 10^3/uL (130-400)
== END ==
LOC: HWLAB 10:57
PROVIDERS: ATTENDING PHYSICIAN Internal Medicine Hematology & Oncology; FAMILY PHYSICIAN Nurse Practitioner Adult Health
DX: C18.4 Malignant neoplasm of transverse colon (principal); C78.7 Secondary malignant neoplasm of liver and intrahepatic bile duct; R80.9 Proteinuria, unspecified
CPT/HCPCS: 36415; 80053; 82378; 85025

== ENCOUNTER → 2024-05-25 10:24 | Outpatient (REF) | payer MEDICARE, OTHER, SELFPAY ==
[2024-05-25 11:51] LABS: % Basophils 0.3 % (0-2); % Immature Granulocytes 0.3 % (0-0.5); % Lymphocytes 31.5 % (20.5-51.1); % Monocytes 11.6 % (1.7-9.3); % Neutrophils 55.3 % (42.2-75.2); Absolute Lymphocytes 1.2 10^3/uL (1.2-3.4); Absolute Monocytes 0.5 10^3/uL (0.1-0.6); Absolute Neutrophils 2.1 10^3/uL (1.4-6.5); Hematocrit 32.9 % (39.0-52.0); Hemoglobin 10.7 g/dL (13.0-18.0); Mean Corp Hgb Conc. 32.5 g/dL (33.0-37.0); Mean Corpuscular Hgb 33.4 pg (27.0-31.0); Mean Corpuscular Volume 102.8 fL (80.0-94.0); Mean Platelet Volume 11.2 fL (7.4-10.4); Nucleated Red Blood Cells % 0 % (-); Platelet Count 70 10^3/uL (130-400); White Blood Cell Count 3.9 10^3/uL (4.8-10.8)
[2024-05-25 11:59] LABS: ALT (SGPT) 30 U/L (0-50); AST (SGOT) 38 U/L (17-59); Albumin 3.6 g/dl (3.5-5.0); Alkaline Phosphatase 113 U/L (38-126); Blood Urea Nitrogen 26 mg/dl (9-20); Calcium 9.3 mg/dl (8.4-10.2); Carbon Dioxide 21 mmol/L (22-30); Chloride 110 mmol/L (98-107); Glucose 177 mg/dl (70-99); Potassium 5.1 mmol/L (3.5-5.1); Sodium 141 mmol/L (135-145); Total Bilirubin 0.5 mg/dl (0.2-1.3); Total Protein 6.3 g/dl (6.3-8.2); eGFR 46.48
[2024-05-26 17:57] LABS: CEA 10.1 ng/ml
== END ==
LOC: HWLAB 10:24
PROVIDERS: ATTENDING PHYSICIAN Internal Medicine Hematology & Oncology; FAMILY PHYSICIAN Nurse Practitioner Adult Health
DX: C18.4 Malignant neoplasm of transverse colon (principal); C78.7 Secondary malignant neoplasm of liver and intrahepatic bile duct; R80.9 Proteinuria, unspecified
CPT/HCPCS: 36415; 80053; 82378; 85025

== ENCOUNTER → 2024-06-13 10:46 | Outpatient (REF) | payer MEDICARE, OTHER, SELFPAY ==
[2024-06-13 11:49] LABS: % Basophils 0.5 % (0-2); % Eosinophils 1.2 % (0-6); % Lymphocytes 34.7 % (20.5-51.1); % Monocytes 8.9 % (1.7-9.3); % Neutrophils 54.7 % (42.2-75.2); Absolute Eosinophils 0.1 10^3/uL (0-0.7); Absolute Lymphocytes 1.5 10^3/uL (1.2-3.4); Absolute Monocytes 0.4 10^3/uL (0.1-0.6); Absolute Neutrophils 2.3 10^3/uL (1.4-6.5); Hematocrit 33.1 % (39.0-52.0); Hemoglobin 11.5 g/dL (13.0-18.0); Mean Corp Hgb Conc. 34.7 g/dL (33.0-37.0); Mean Corpuscular Hgb 33.8 pg (27.0-31.0); Mean Corpuscular Volume 97.4 fL (80.0-94.0); Mean Platelet Volume 10.6 fL (7.4-10.4); Nucleated Red Blood Cells % 0 % (-); Platelet Count 95 10^3/uL (130-400); Red Cell Dist. Width 14.1 % (11.5-14.5); White Blood Cell Count 4.3 10^3/uL (4.8-10.8)
[2024-06-13 12:17] LABS: ALT (SGPT) 41 U/L (0-50); AST (SGOT) 56 U/L (17-59); Albumin 4.2 g/dl (3.5-5.0); Alkaline Phosphatase 140 U/L (38-126); Blood Urea Nitrogen 42 mg/dl (9-20); Calcium 9.2 mg/dl (8.4-10.2); Carbon Dioxide 15 mmol/L (22-30); Chloride 109 mmol/L (98-107); Glucose 76 mg/dl (70-99); HDL Cholesterol 32 mg/dl; LDL Cholesterol, Calculated 64 mg/dl; Potassium 4.7 mmol/L (3.5-5.1); Sodium 138 mmol/L (135-145); Total Bilirubin 1.1 mg/dl (0.2-1.3); Total Cholesterol 134 mg/dl (50-199); Triglyceride 190 mg/dl (10-149); Very Low Density Lipoprotein 38 mg/dl (0-30); eGFR 42.75
[2024-06-13 12:39] LABS: Protein/creatinine Ratio 1.6; Urine Protein 129 mg/dl
[2024-06-13 12:58] LABS: Vitamin B12 931 pg/ml (239-931)
[2024-06-13 13:40] LABS: CEA 12.8 ng/ml
[2024-06-13 14:31] LABS: Glycohemoglobin (HgbA1c) 7.6 % (4.0-5.6)
[2024-06-13 14:37] LABS: Microalbumin, Random Urine > 57.0 mg/dl (0.6-1.7)
== END ==
LOC: REG 10:46
PROVIDERS: ATTENDING PHYSICIAN Internal Medicine Hematology & Oncology; FAMILY PHYSICIAN Nurse Practitioner Adult Health
DX: E11.9 Type 2 diabetes mellitus without complications (principal); I25.10 Atherosclerotic heart disease of native coronary artery without angina pectoris; F03.90 Unspecified dementia, unspecified severity, without behavioral disturbance, psychotic disturbance, mood disturbance, and anxiety; E11.69 Type 2 diabetes mellitus with other specified complication; C78.7 Secondary malignant neoplasm of liver and intrahepatic bile duct; E78.2 Mixed hyperlipidemia; D51.0 Vitamin B12 deficiency anemia due to intrinsic factor deficiency; C18.4 Malignant neoplasm of transverse colon; R80.9 Proteinuria, unspecified
CPT/HCPCS: 36415; 80053; 80061; 82043; 82378; 82570; 82607; 83036; 84156; 85025

== ENCOUNTER → 2024-06-27 10:32 | Outpatient (REF) | payer MEDICARE, OTHER, SELFPAY ==
[2024-06-27 13:36] LABS: % Basophils 0.4 % (0-2); % Eosinophils 0.8 % (0-6); % Immature Granulocytes 0.4 % (0-0.5); % Monocytes 5.5 % (1.7-9.3); % Neutrophils 71.9 % (42.2-75.2); Absolute Lymphocytes 1.1 10^3/uL (1.2-3.4); Absolute Monocytes 0.3 10^3/uL (0.1-0.6); Absolute Neutrophils 3.8 10^3/uL (1.4-6.5); Hematocrit 32.6 % (39.0-52.0); Hemoglobin 10.9 g/dL (13.0-18.0); Mean Corp Hgb Conc. 33.4 g/dL (33.0-37.0); Mean Corpuscular Hgb 34.1 pg (27.0-31.0); Mean Corpuscular Volume 101.9 fL (80.0-94.0); Nucleated Red Blood Cells % 0 % (-); Red Cell Dist. Width 14.1 % (11.5-14.5); White Blood Cell Count 5.2 10^3/uL (4.8-10.8)
[2024-06-27 14:12] LABS: ALT (SGPT) 33 U/L (0-50); AST (SGOT) 37 U/L (17-59); Albumin 3.9 g/dl (3.5-5.0); Alkaline Phosphatase 105 U/L (38-126); Blood Urea Nitrogen 27 mg/dl (9-20); Calcium 9.4 mg/dl (8.4-10.2); Carbon Dioxide 18 mmol/L (22-30); Chloride 107 mmol/L (98-107); Glucose 127 mg/dl (70-99); Sodium 138 mmol/L (135-145); Total Bilirubin 0.9 mg/dl (0.2-1.3); Total Protein 6.6 g/dl (6.3-8.2); eGFR 46.19
[2024-06-27 14:38] LABS: CEA 16.1 ng/ml
[2024-06-27 15:22] LABS: Mean Platelet Volume 11.4 fL (7.4-10.4)
[2024-06-27 15:23] LABS: Platelet Count 66 10^3/uL (130-400)
== END ==
LOC: REG 10:32
PROVIDERS: ATTENDING PHYSICIAN Internal Medicine Hematology & Oncology; FAMILY PHYSICIAN Nurse Practitioner Adult Health
DX: C18.4 Malignant neoplasm of transverse colon (principal); C78.7 Secondary malignant neoplasm of liver and intrahepatic bile duct; R80.9 Proteinuria, unspecified
CPT/HCPCS: 36415; 80053; 82378; 85025

== ENCOUNTER → 2024-07-06 10:49 | Outpatient (REF) | payer MEDICARE, OTHER, SELFPAY ==
[2024-07-06 15:18] LABS: Hematocrit 32.8 % (39.0-52.0); Hemoglobin 10.6 g/dL (13.0-18.0); Mean Corp Hgb Conc. 32.3 g/dL (33.0-37.0); Mean Corpuscular Hgb 33.3 pg (27.0-31.0); Mean Corpuscular Volume 103.1 fL (80.0-94.0); Platelet Count 97 10^3/uL (130-400); Red Blood Cell Count 3.18 10^6/uL (4.70-6.10); Red Cell Dist. Width 14.5 % (11.5-14.5); White Blood Cell Count 2.6 10^3/uL (4.8-10.8)
[2024-07-06 15:25] LABS: ALT (SGPT) 23 U/L (0-50); AST (SGOT) 33 U/L (17-59); Albumin 3.6 g/dl (3.5-5.0); Alkaline Phosphatase 95 U/L (38-126); Blood Urea Nitrogen 21 mg/dl (9-20); Carbon Dioxide 23 mmol/L (22-30); Chloride 109 mmol/L (98-107); Glucose 138 mg/dl (70-99); Potassium 4.8 mmol/L (3.5-5.1); Sodium 140 mmol/L (135-145); Total Bilirubin 0.7 mg/dl (0.2-1.3); Total Protein 6.1 g/dl (6.3-8.2); eGFR > 60.00
[2024-07-06 15:56] LABS: % Basophils 0.4 % (0-2); % Eosinophils 2.7 % (0-6); % Lymphocytes 43.7 % (20.5-51.1); % Monocytes 15.3 % (1.7-9.3); % Neutrophils 37.9 % (42.2-75.2); Absolute Eosinophils 0.1 10^3/uL (0-0.7); Absolute Lymphocytes 1.1 10^3/uL (1.2-3.4); Absolute Monocytes 0.4 10^3/uL (0.1-0.6); Nucleated Red Blood Cells % 0 % (-)
[2024-07-06 16:21] LABS: CEA 10.6 ng/ml
== END ==
LOC: HWLAB 10:49
PROVIDERS: ATTENDING PHYSICIAN Internal Medicine Hematology & Oncology; FAMILY PHYSICIAN Nurse Practitioner Adult Health
DX: C18.4 Malignant neoplasm of transverse colon (principal); C78.7 Secondary malignant neoplasm of liver and intrahepatic bile duct; R80.9 Proteinuria, unspecified
CPT/HCPCS: 36415; 80053; 82378; 85025

== ENCOUNTER → 2024-07-13 12:53 | Outpatient (REF) | payer MEDICARE, OTHER, SELFPAY ==
[2024-07-13 12:04] LABS: Hematocrit 31.1 % (39.0-52.0); Hemoglobin 10.4 g/dL (13.0-18.0); Mean Corp Hgb Conc. 33.4 g/dL (33.0-37.0); Mean Corpuscular Volume 101.6 fL (80.0-94.0); Mean Platelet Volume 11.5 fL (7.4-10.4); Platelet Count 82 10^3/uL (130-400); Red Blood Cell Count 3.06 10^6/uL (4.70-6.10); Red Cell Dist. Width 14.4 % (11.5-14.5); White Blood Cell Count 11.6 10^3/uL (4.8-10.8)
[2024-07-13 14:36] LABS: % Basophils 0.2 % (0-2); % Eosinophils 0.3 % (0-6); % Immature Granulocytes 0.6 % (0-0.5); % Lymphocytes 10.3 % (20.5-51.1); % Monocytes 2.1 % (1.7-9.3); % Neutrophils 86.5 % (42.2-75.2); Absolute Immature Granulocytes 0.1 10^3/uL (0-0.05); Absolute Lymphocytes 1.2 10^3/uL (1.2-3.4); Absolute Monocytes 0.3 10^3/uL (0.1-0.6); Absolute Neutrophils 10.1 10^3/uL (1.4-6.5); Nucleated Red Blood Cells % 0 % (-)
== END ==
LOC: OIDL 12:53
PROVIDERS: ATTENDING PHYSICIAN Internal Medicine Hematology & Oncology
DX: C18.4 Malignant neoplasm of transverse colon (principal)
CPT/HCPCS: 85025

== ENCOUNTER → 2024-07-20 11:08 | Outpatient (REF) | payer MEDICARE, OTHER, SELFPAY ==
[2024-07-20 15:48] LABS: ALT (SGPT) 31 U/L (0-50); AST (SGOT) 36 U/L (17-59); Albumin 3.9 g/dl (3.5-5.0); Alkaline Phosphatase 155 U/L (38-126); Blood Urea Nitrogen 18 mg/dl (9-20); Calcium 9.2 mg/dl (8.4-10.2); Carbon Dioxide 20 mmol/L (22-30); Chloride 108 mmol/L (98-107); Glucose 79 mg/dl (70-99); Potassium 4.5 mmol/L (3.5-5.1); Sodium 139 mmol/L (135-145); Total Bilirubin 0.9 mg/dl (0.2-1.3); Total Protein 6.5 g/dl (6.3-8.2); eGFR 50.18
[2024-07-20 15:49] LABS: % Basophils 0.6 % (0-2); % Eosinophils 0.9 % (0-6); % Immature Granulocytes 0.6 % (0-0.5); % Lymphocytes 34.8 % (20.5-51.1); % Monocytes 11.9 % (1.7-9.3); % Neutrophils 51.2 % (42.2-75.2); Absolute Lymphocytes 1.2 10^3/uL (1.2-3.4); Absolute Monocytes 0.4 10^3/uL (0.1-0.6); Absolute Neutrophils 1.7 10^3/uL (1.4-6.5); Hematocrit 31.2 % (39.0-52.0); Hemoglobin 10.4 g/dL (13.0-18.0); Mean Corp Hgb Conc. 33.3 g/dL (33.0-37.0); Mean Corpuscular Hgb 34.1 pg (27.0-31.0); Mean Corpuscular Volume 102.3 fL (80.0-94.0); Mean Platelet Volume 11.5 fL (7.4-10.4); Nucleated Red Blood Cells % 0 % (-); Platelet Count 74 10^3/uL (130-400); Red Blood Cell Count 3.05 10^6/uL (4.70-6.10); Red Cell Dist. Width 14.4 % (11.5-14.5); White Blood Cell Count 3.4 10^3/uL (4.8-10.8)
[2024-07-21 01:47] LABS: CEA 11.1 ng/ml
== END ==
LOC: HWLAB 11:08
PROVIDERS: ATTENDING PHYSICIAN Internal Medicine Hematology & Oncology; FAMILY PHYSICIAN Nurse Practitioner Adult Health
DX: C18.4 Malignant neoplasm of transverse colon (principal); C78.7 Secondary malignant neoplasm of liver and intrahepatic bile duct; R80.9 Proteinuria, unspecified
CPT/HCPCS: 36415; 80053; 82378; 85025

== ENCOUNTER → 2024-08-03 12:00 | Outpatient (REF) | payer MEDICARE, OTHER, SELFPAY ==
[2024-08-03 15:35] LABS: % Basophils 0.4 % (0-2); % Eosinophils 0.2 % (0-6); % Immature Granulocytes 0.2 % (0-0.5); % Lymphocytes 19.7 % (20.5-51.1); % Monocytes 10.3 % (1.7-9.3); % Neutrophils 69.2 % (42.2-75.2); Absolute Lymphocytes 0.9 10^3/uL (1.2-3.4); Absolute Monocytes 0.5 10^3/uL (0.1-0.6); Absolute Neutrophils 3.2 10^3/uL (1.4-6.5); Hematocrit 32.4 % (39.0-52.0); Hemoglobin 10.8 g/dL (13.0-18.0); Mean Corp Hgb Conc. 33.3 g/dL (33.0-37.0); Mean Corpuscular Volume 101.9 fL (80.0-94.0); Mean Platelet Volume 10.9 fL (7.4-10.4); Nucleated Red Blood Cells % 0 % (-); Platelet Count 94 10^3/uL (130-400); Red Blood Cell Count 3.18 10^6/uL (4.70-6.10); Red Cell Dist. Width 13.6 % (11.5-14.5); White Blood Cell Count 4.7 10^3/uL (4.8-10.8)
[2024-08-03 15:51] LABS: ALT (SGPT) 25 U/L (0-50); AST (SGOT) 35 U/L (17-59); Alkaline Phosphatase 131 U/L (38-126); Blood Urea Nitrogen 25 mg/dl (9-20); Calcium 9.5 mg/dl (8.4-10.2); Carbon Dioxide 19 mmol/L (22-30); Chloride 108 mmol/L (98-107); Glucose 120 mg/dl (70-99); Sodium 137 mmol/L (135-145); Total Protein 6.7 g/dl (6.3-8.2); eGFR > 60.00
== END ==
LOC: HWLAB 12:00
PROVIDERS: ATTENDING PHYSICIAN Internal Medicine Hematology & Oncology; FAMILY PHYSICIAN Nurse Practitioner Adult Health
DX: C18.4 Malignant neoplasm of transverse colon (principal); C78.7 Secondary malignant neoplasm of liver and intrahepatic bile duct; R80.9 Proteinuria, unspecified
CPT/HCPCS: 36415; 80053; 82378; 85025

== ENCOUNTER → 2024-08-17 11:00 | Outpatient (REF) | payer MEDICARE, OTHER, SELFPAY ==
[2024-08-17 16:12] LABS: % Basophils 0.6 % (0-2); % Immature Granulocytes 0.2 % (0-0.5); % Lymphocytes 23.8 % (20.5-51.1); % Monocytes 7.4 % (1.7-9.3); Absolute Eosinophils 0.1 10^3/uL (0-0.7); Absolute Lymphocytes 1.1 10^3/uL (1.2-3.4); Absolute Monocytes 0.4 10^3/uL (0.1-0.6); Absolute Neutrophils 3.1 10^3/uL (1.4-6.5); Hematocrit 33.7 % (39.0-52.0); Hemoglobin 11.3 g/dL (13.0-18.0); Mean Corp Hgb Conc. 33.5 g/dL (33.0-37.0); Mean Corpuscular Hgb 33.9 pg (27.0-31.0); Mean Corpuscular Volume 101.2 fL (80.0-94.0); Mean Platelet Volume 11.6 fL (7.4-10.4); Nucleated Red Blood Cells % 0 % (-); Platelet Count 78 10^3/uL (130-400); Red Blood Cell Count 3.33 10^6/uL (4.70-6.10); Red Cell Dist. Width 12.7 % (11.5-14.5); White Blood Cell Count 4.7 10^3/uL (4.8-10.8)
[2024-08-17 16:13] LABS: ALT (SGPT) 34 U/L (0-50); AST (SGOT) 40 U/L (17-59); Albumin 4.1 g/dl (3.5-5.0); Alkaline Phosphatase 124 U/L (38-126); Blood Urea Nitrogen 29 mg/dl (9-20); Calcium 9.6 mg/dl (8.4-10.2); Carbon Dioxide 16 mmol/L (22-30); Chloride 110 mmol/L (98-107); Glucose 139 mg/dl (70-99); Sodium 138 mmol/L (135-145); Total Bilirubin 1.1 mg/dl (0.2-1.3); Total Protein 6.9 g/dl (6.3-8.2); eGFR > 60.00
[2024-08-17 16:20] LABS: Potassium 5.2 mmol/L (3.5-5.1)
[2024-08-17 18:51] LABS: CEA 8.35 ng/ml
== END ==
LOC: HWLAB 11:00
PROVIDERS: ATTENDING PHYSICIAN Internal Medicine Hematology & Oncology; FAMILY PHYSICIAN Nurse Practitioner Adult Health
DX: C18.4 Malignant neoplasm of transverse colon (principal); C78.7 Secondary malignant neoplasm of liver and intrahepatic bile duct; R80.9 Proteinuria, unspecified
CPT/HCPCS: 36415; 80053; 82378; 85025

== ENCOUNTER → 2024-08-31 10:03 | Outpatient (REF) | payer MEDICARE, OTHER, SELFPAY ==
[2024-08-31 10:58] LABS: % Basophils 0.6 % (0-2); % Eosinophils 1.9 % (0-6); % Immature Granulocytes 0.3 % (0-0.5); % Lymphocytes 29.2 % (20.5-51.1); % Monocytes 8.5 % (1.7-9.3); % Neutrophils 59.5 % (42.2-75.2); Absolute Eosinophils 0.1 10^3/uL (0-0.7); Absolute Lymphocytes 0.9 10^3/uL (1.2-3.4); Absolute Monocytes 0.3 10^3/uL (0.1-0.6); Absolute Neutrophils 1.9 10^3/uL (1.4-6.5); Hematocrit 32.7 % (39.0-52.0); Hemoglobin 10.8 g/dL (13.0-18.0); Mean Corpuscular Hgb 33.1 pg (27.0-31.0); Mean Corpuscular Volume 100.3 fL (80.0-94.0); Mean Platelet Volume 11.8 fL (7.4-10.4); Nucleated Red Blood Cells % 0 % (-); Platelet Count 68 10^3/uL (130-400); Red Blood Cell Count 3.26 10^6/uL (4.70-6.10); Red Cell Dist. Width 12.8 % (11.5-14.5); White Blood Cell Count 3.2 10^3/uL (4.8-10.8)
[2024-08-31 13:53] LABS: ALT (SGPT) 31 U/L (0-50); AST (SGOT) 31 U/L (17-59); Albumin 3.7 g/dl (3.5-5.0); Alkaline Phosphatase 131 U/L (38-126); Blood Urea Nitrogen 26 mg/dl (9-20); Calcium 9.4 mg/dl (8.4-10.2); Carbon Dioxide 20 mmol/L (22-30); Chloride 115 mmol/L (98-107); Glucose 128 mg/dl (70-99); Potassium 4.7 mmol/L (3.5-5.1); Sodium 145 mmol/L (135-145); Total Bilirubin 0.8 mg/dl (0.2-1.3); Total Protein 6.3 g/dl (6.3-8.2); eGFR 54.85
[2024-08-31 19:35] LABS: CEA 10.4 ng/ml
== END ==
LOC: HWLAB 10:03
PROVIDERS: ATTENDING PHYSICIAN Internal Medicine Hematology & Oncology; FAMILY PHYSICIAN Nurse Practitioner Adult Health
DX: C18.4 Malignant neoplasm of transverse colon (principal); C78.7 Secondary malignant neoplasm of liver and intrahepatic bile duct; R80.9 Proteinuria, unspecified
CPT/HCPCS: 36415; 80053; 82378; 85025

== ENCOUNTER → 2024-09-07 09:10 | Outpatient (REF) | payer MEDICARE, OTHER, SELFPAY ==
[2024-09-07 11:28] LABS: % Basophils 0.9 % (0-2); % Eosinophils 1.7 % (0-6); % Immature Granulocytes 0.3 % (0-0.5); % Lymphocytes 34.7 % (20.5-51.1); % Monocytes 9.2 % (1.7-9.3); % Neutrophils 53.2 % (42.2-75.2); Absolute Eosinophils 0.1 10^3/uL (0-0.7); Absolute Lymphocytes 1.2 10^3/uL (1.2-3.4); Absolute Monocytes 0.3 10^3/uL (0.1-0.6); Absolute Neutrophils 1.9 10^3/uL (1.4-6.5); Hematocrit 32.8 % (39.0-52.0); Mean Corp Hgb Conc. 33.5 g/dL (33.0-37.0); Mean Corpuscular Hgb 33.6 pg (27.0-31.0); Mean Corpuscular Volume 100.3 fL (80.0-94.0); Mean Platelet Volume 10.7 fL (7.4-10.4); Nucleated Red Blood Cells % 0 % (-); Platelet Count 101 10^3/uL (130-400); Red Blood Cell Count 3.27 10^6/uL (4.70-6.10); White Blood Cell Count 3.5 10^3/uL (4.8-10.8)
[2024-09-07 11:38] LABS: ALT (SGPT) 37 U/L (0-50); AST (SGOT) 45 U/L (17-59); Albumin 3.8 g/dl (3.5-5.0); Alkaline Phosphatase 120 U/L (38-126); Blood Urea Nitrogen 25 mg/dl (9-20); Calcium 9.2 mg/dl (8.4-10.2); Carbon Dioxide 22 mmol/L (22-30); Chloride 111 mmol/L (98-107); Glucose 88 mg/dl (70-99); Sodium 141 mmol/L (135-145); Total Bilirubin 0.7 mg/dl (0.2-1.3); Total Protein 6.4 g/dl (6.3-8.2); eGFR 50.18
[2024-09-07 21:56] LABS: CEA 8.91 ng/ml
== END ==
LOC: HWLAB 09:10
PROVIDERS: ATTENDING PHYSICIAN Internal Medicine Hematology & Oncology; FAMILY PHYSICIAN Nurse Practitioner Adult Health
DX: C18.4 Malignant neoplasm of transverse colon (principal); C78.7 Secondary malignant neoplasm of liver and intrahepatic bile duct; R80.9 Proteinuria, unspecified
CPT/HCPCS: 36415; 80053; 82378; 85025

== ENCOUNTER → 2024-09-17 08:50 | Outpatient (REF) | payer MEDICARE, OTHER, SELFPAY ==
[2024-09-17 11:57] LABS: ALT (SGPT) 26 U/L (0-50); AST (SGOT) 30 U/L (17-59); Albumin 3.5 g/dl (3.5-5.0); Alkaline Phosphatase 135 U/L (38-126); Blood Urea Nitrogen 19 mg/dl (9-20); Calcium 9.2 mg/dl (8.4-10.2); Carbon Dioxide 23 mmol/L (22-30); Chloride 110 mmol/L (98-107); Glucose 139 mg/dl (70-99); HDL Cholesterol 42 mg/dl; LDL Cholesterol, Calculated 53 mg/dl; Potassium 4.4 mmol/L (3.5-5.1); Sodium 141 mmol/L (135-145); Total Bilirubin 0.6 mg/dl (0.2-1.3); Total Cholesterol 109 mg/dl (50-199); Total Protein 6.1 g/dl (6.3-8.2); Triglyceride 74 mg/dl (10-149); Very Low Density Lipoprotein 14 mg/dl (0-30); eGFR > 60.00
[2024-09-17 13:46] LABS: Microalbumin, Random Urine > 57.0 mg/dl (0.6-1.7)
[2024-09-17 14:25] LABS: Glycohemoglobin (HgbA1c) 7.4 % (4.0-5.6)
== END ==
LOC: HWLAB 08:50
PROVIDERS: ATTENDING PHYSICIAN Nurse Practitioner Adult Health
DX: E11.69 Type 2 diabetes mellitus with other specified complication (principal); F03.90 Unspecified dementia, unspecified severity, without behavioral disturbance, psychotic disturbance, mood disturbance, and anxiety; E78.2 Mixed hyperlipidemia; N18.31 Chronic kidney disease, stage 3a; R80.9 Proteinuria, unspecified
CPT/HCPCS: 36415; 80053; 80061; 82043; 83036

== ENCOUNTER → 2024-09-25 11:01 | Outpatient (REF) | payer MEDICARE, OTHER, SELFPAY ==
[2024-09-25 15:55] LABS: % Basophils 0.5 % (0-2); % Eosinophils 3.3 % (0-6); % Lymphocytes 21.3 % (20.5-51.1); % Monocytes 6.3 % (1.7-9.3); % Neutrophils 68.6 % (42.2-75.2); Absolute Eosinophils 0.1 10^3/uL (0-0.7); Absolute Lymphocytes 0.8 10^3/uL (1.2-3.4); Absolute Monocytes 0.3 10^3/uL (0.1-0.6); Absolute Neutrophils 2.7 10^3/uL (1.4-6.5); Hematocrit 31.1 % (39.0-52.0); Hemoglobin 10.4 g/dL (13.0-18.0); Mean Corp Hgb Conc. 33.4 g/dL (33.0-37.0); Mean Corpuscular Hgb 33.7 pg (27.0-31.0); Mean Corpuscular Volume 100.6 fL (80.0-94.0); Mean Platelet Volume 11.6 fL (7.4-10.4); Nucleated Red Blood Cells % 0 % (-); Platelet Count 77 10^3/uL (130-400); Red Blood Cell Count 3.09 10^6/uL (4.70-6.10); Red Cell Dist. Width 13.4 % (11.5-14.5)
[2024-09-25 16:28] LABS: ALT (SGPT) 25 U/L (0-50); AST (SGOT) 30 U/L (17-59); Albumin 3.8 g/dl (3.5-5.0); Alkaline Phosphatase 153 U/L (38-126); Blood Urea Nitrogen 21 mg/dl (9-20); Calcium 9.1 mg/dl (8.4-10.2); Carbon Dioxide 22 mmol/L (22-30); Chloride 110 mmol/L (98-107); Glucose 234 mg/dl (70-99); Potassium 4.6 mmol/L (3.5-5.1); Sodium 139 mmol/L (135-145); Total Bilirubin 0.7 mg/dl (0.2-1.3); Total Protein 6.2 g/dl (6.3-8.2); eGFR > 60.00
[2024-09-25 16:56] LABS: CEA 9.37 ng/ml
== END ==
LOC: HWLAB 11:01
PROVIDERS: ATTENDING PHYSICIAN Internal Medicine Hematology & Oncology; FAMILY PHYSICIAN Nurse Practitioner Adult Health
DX: C18.4 Malignant neoplasm of transverse colon (principal); C78.7 Secondary malignant neoplasm of liver and intrahepatic bile duct; R80.9 Proteinuria, unspecified
CPT/HCPCS: 36415; 80053; 82378; 85025

== ENCOUNTER → 2024-10-08 10:29 | Outpatient (REF) | payer MEDICARE, OTHER, SELFPAY | LOC: HWRAD 10:29 | PROVIDERS: ATTENDING PHYSICIAN Internal Medicine Hematology & Oncology; FAMILY PHYSICIAN Nurse Practitioner Adult Health | DX: R91.1 Solitary pulmonary nodule (principal); C18.4 Malignant neoplasm of transverse colon; C78.7 Secondary malignant neoplasm of liver and intrahepatic bile duct; R80.9 Proteinuria, unspecified | CPT/HCPCS: 71250 ==

== ENCOUNTER → 2024-10-19 10:01 | Outpatient (REF) | payer MEDICARE, OTHER, SELFPAY ==
[2024-10-19 12:09] LABS: % Basophils 0.4 % (0-2); % Eosinophils 1.3 % (0-6); % Immature Granulocytes 0.4 % (0-0.5); % Lymphocytes 21.2 % (20.5-51.1); % Monocytes 7.5 % (1.7-9.3); % Neutrophils 69.2 % (42.2-75.2); Absolute Eosinophils 0.1 10^3/uL (0-0.7); Absolute Monocytes 0.4 10^3/uL (0.1-0.6); Absolute Neutrophils 3.2 10^3/uL (1.4-6.5); Hematocrit 33.3 % (39.0-52.0); Hemoglobin 11.2 g/dL (13.0-18.0); Mean Corp Hgb Conc. 33.6 g/dL (33.0-37.0); Mean Corpuscular Hgb 33.3 pg (27.0-31.0); Mean Corpuscular Volume 99.1 fL (80.0-94.0); Mean Platelet Volume 10.8 fL (7.4-10.4); Nucleated Red Blood Cells % 0 % (-); Platelet Count 92 10^3/uL (130-400); Red Blood Cell Count 3.36 10^6/uL (4.70-6.10); Red Cell Dist. Width 13.3 % (11.5-14.5); White Blood Cell Count 4.7 10^3/uL (4.8-10.8)
[2024-10-19 12:40] LABS: ALT (SGPT) 32 U/L (0-50); AST (SGOT) 35 U/L (17-59); Albumin 4.1 g/dl (3.5-5.0); Alkaline Phosphatase 124 U/L (38-126); Blood Urea Nitrogen 30 mg/dl (9-20); Calcium 9.4 mg/dl (8.4-10.2); Glucose 173 mg/dl (70-99); Total Bilirubin 0.9 mg/dl (0.2-1.3); Total Protein 6.6 g/dl (6.3-8.2); eGFR 54.85
[2024-10-19 12:41] LABS: CEA 8.72 ng/ml
[2024-10-19 12:56] LABS: Carbon Dioxide 19 mmol/L (22-30); Chloride 111 mmol/L (98-107); Potassium 5.4 mmol/L (3.5-5.1); Sodium 141 mmol/L (135-145)
== END ==
LOC: HWLAB 10:01
PROVIDERS: ATTENDING PHYSICIAN Internal Medicine Hematology & Oncology; FAMILY PHYSICIAN Nurse Practitioner Adult Health
DX: C18.4 Malignant neoplasm of transverse colon (principal); C78.7 Secondary malignant neoplasm of liver and intrahepatic bile duct; R80.9 Proteinuria, unspecified
CPT/HCPCS: 36415; 80053; 82378; 85025

== ENCOUNTER → 2024-10-21 09:41 | Outpatient (REF) | payer MEDICARE, OTHER, SELFPAY ==
[2024-10-21 11:09] LABS: Protein/creatinine Ratio 2.9; Urine Protein 154 mg/dl
== END ==
LOC: OIDL 09:41
PROVIDERS: ATTENDING PHYSICIAN Internal Medicine Hematology & Oncology
DX: C18.4 Malignant neoplasm of transverse colon (principal); C78.7 Secondary malignant neoplasm of liver and intrahepatic bile duct; R80.9 Proteinuria, unspecified; R91.1 Solitary pulmonary nodule
CPT/HCPCS: 82570; 84156

== ENCOUNTER → 2024-11-09 11:42 | Outpatient (REF) | payer MEDICARE, OTHER, SELFPAY ==
[2024-11-09 15:41] LABS: % Basophils 0.6 % (0-2); % Eosinophils 0.8 % (0-6); % Immature Granulocytes 0.2 % (0-0.5); % Lymphocytes 19.1 % (20.5-51.1); % Monocytes 7.4 % (1.7-9.3); % Neutrophils 71.9 % (42.2-75.2); Absolute Lymphocytes 0.9 10^3/uL (1.2-3.4); Absolute Monocytes 0.4 10^3/uL (0.1-0.6); Absolute Neutrophils 3.4 10^3/uL (1.4-6.5); Hematocrit 34.3 % (39.0-52.0); Hemoglobin 11.3 g/dL (13.0-18.0); Mean Corp Hgb Conc. 32.9 g/dL (33.0-37.0); Mean Corpuscular Hgb 33.1 pg (27.0-31.0); Mean Corpuscular Volume 100.6 fL (80.0-94.0); Mean Platelet Volume 10.9 fL (7.4-10.4); Nucleated Red Blood Cells % 0 % (-); Platelet Count 91 10^3/uL (130-400); Red Blood Cell Count 3.41 10^6/uL (4.70-6.10); Red Cell Dist. Width 13.7 % (11.5-14.5); White Blood Cell Count 4.7 10^3/uL (4.8-10.8)
[2024-11-09 15:55] LABS: ALT (SGPT) 32 U/L (0-50); AST (SGOT) 34 U/L (17-59); Albumin 4.2 g/dl (3.5-5.0); Alkaline Phosphatase 111 U/L (38-126); Blood Urea Nitrogen 25 mg/dl (9-20); Calcium 9.1 mg/dl (8.4-10.2); Carbon Dioxide 20 mmol/L (22-30); Chloride 115 mmol/L (98-107); Glucose 187 mg/dl (70-99); Potassium 5.2 mmol/L (3.5-5.1); Sodium 142 mmol/L (135-145); Total Bilirubin 0.9 mg/dl (0.2-1.3); Total Protein 6.8 g/dl (6.3-8.2); eGFR 54.85
[2024-11-09 16:07] LABS: Protein/creatinine Ratio 2.6; Urine Protein 132 mg/dl
[2024-11-09 19:38] LABS: CEA 9.14 ng/ml
== END ==
LOC: HWLAB 11:42
PROVIDERS: ATTENDING PHYSICIAN Internal Medicine Hematology & Oncology; FAMILY PHYSICIAN Nurse Practitioner Adult Health
DX: C18.4 Malignant neoplasm of transverse colon (principal); C78.7 Secondary malignant neoplasm of liver and intrahepatic bile duct; R80.9 Proteinuria, unspecified; R91.1 Solitary pulmonary nodule
CPT/HCPCS: 36415; 80053; 82378; 82570; 84156; 85025

== ENCOUNTER → 2024-11-30 10:16 | Outpatient (REF) | payer MEDICARE, OTHER, SELFPAY ==
[2024-11-30 12:36] LABS: % Basophils 0.8 % (0-2); % Eosinophils 0.6 % (0-6); % Immature Granulocytes 0.2 % (0-0.5); % Monocytes 7.8 % (1.7-9.3); % Neutrophils 69.6 % (42.2-75.2); Absolute Lymphocytes 1.1 10^3/uL (1.2-3.4); Absolute Monocytes 0.4 10^3/uL (0.1-0.6); Absolute Neutrophils 3.5 10^3/uL (1.4-6.5); Hematocrit 34.1 % (39.0-52.0); Hemoglobin 11.2 g/dL (13.0-18.0); Mean Corp Hgb Conc. 32.8 g/dL (33.0-37.0); Mean Corpuscular Hgb 32.8 pg (27.0-31.0); Mean Platelet Volume 11.1 fL (7.4-10.4); Nucleated Red Blood Cells % 0 % (-); Platelet Count 104 10^3/uL (130-400); Red Blood Cell Count 3.41 10^6/uL (4.70-6.10)
[2024-11-30 13:56] LABS: Protein/creatinine Ratio 2.3; Urine Protein 117 mg/dl
[2024-11-30 14:39] LABS: ALT (SGPT) 27 U/L (0-50); AST (SGOT) 31 U/L (17-59); Alkaline Phosphatase 132 U/L (38-126); Blood Urea Nitrogen 26 mg/dl (9-20); Calcium 9.1 mg/dl (8.4-10.2); Carbon Dioxide 20 mmol/L (22-30); Chloride 114 mmol/L (98-107); Glucose 86 mg/dl (70-99); Potassium 5.7 mmol/L (3.5-5.1); Sodium 141 mmol/L (135-145); Total Bilirubin 1.2 mg/dl (0.2-1.3); Total Protein 6.7 g/dl (6.3-8.2); eGFR 46.19
[2024-11-30 20:57] LABS: CEA 10.5 ng/ml
== END ==
LOC: HWLAB 10:16
PROVIDERS: ATTENDING PHYSICIAN Internal Medicine Hematology & Oncology; FAMILY PHYSICIAN Nurse Practitioner Adult Health
DX: C18.4 Malignant neoplasm of transverse colon (principal); C78.7 Secondary malignant neoplasm of liver and intrahepatic bile duct; R80.9 Proteinuria, unspecified; R91.1 Solitary pulmonary nodule
CPT/HCPCS: 36415; 80053; 82378; 82570; 84156; 85025

== ENCOUNTER → 2024-12-21 10:39 | Outpatient (REF) | payer MEDICARE, OTHER, SELFPAY ==
[2024-12-21 12:49] LABS: Hematocrit 33.1 % (39.0-52.0); Hemoglobin 11.1 g/dL (13.0-18.0); Mean Corp Hgb Conc. 33.5 g/dL (33.0-37.0); Mean Corpuscular Volume 101.2 fL (80.0-94.0); Nucleated Red Blood Cells % 0 % (-); Platelet Count 98 10^3/uL (130-400); Red Cell Dist. Width 13.5 % (11.5-14.5)
[2024-12-21 13:12] LABS: ALT (SGPT) 24 U/L (0-50); AST (SGOT) 26 U/L (17-59); Albumin 4.0 g/dl (3.5-5.0); Alkaline Phosphatase 126 U/L (38-126); Blood Urea Nitrogen 30 mg/dl (9-20); Calcium 9.3 mg/dl (8.4-10.2); Carbon Dioxide 18 mmol/L (22-30); Chloride 113 mmol/L (98-107); Glucose 88 mg/dl (70-99); Potassium 5.4 mmol/L (3.5-5.1); Sodium 139 mmol/L (135-145); Total Protein 6.6 g/dl (6.3-8.2); eGFR 42.75
[2024-12-21 13:41] LABS: CEA 9.02 ng/ml
== END ==
LOC: HWLAB 10:39
PROVIDERS: ATTENDING PHYSICIAN Internal Medicine Hematology & Oncology; FAMILY PHYSICIAN Nurse Practitioner Adult Health
DX: C18.4 Malignant neoplasm of transverse colon (principal); C78.7 Secondary malignant neoplasm of liver and intrahepatic bile duct; R80.9 Proteinuria, unspecified; R91.1 Solitary pulmonary nodule
CPT/HCPCS: 36415; 80053; 82378; 82570; 84156; 85025

== ENCOUNTER → 2025-01-11 09:38 | Outpatient (REF) | payer MEDICARE, OTHER, SELFPAY ==
[2025-01-11 12:21] LABS: Hematocrit 33.9 % (39.0-52.0); Hemoglobin 11.2 g/dL (13.0-18.0); Mean Corp Hgb Conc. 33.0 g/dL (33.0-37.0); Mean Corpuscular Volume 101.2 fL (80.0-94.0); Nucleated Red Blood Cells % 0 % (-); Platelet Count 94 10^3/uL (130-400); Red Cell Dist. Width 13.7 % (11.5-14.5)
[2025-01-11 12:40] LABS: ALT (SGPT) 28 U/L (0-50); AST (SGOT) 29 U/L (17-59); Albumin 4.0 g/dl (3.5-5.0); Alkaline Phosphatase 118 U/L (38-126); Blood Urea Nitrogen 24 mg/dl (9-20); Calcium 9.3 mg/dl (8.4-10.2); Carbon Dioxide 19 mmol/L (22-30); Chloride 115 mmol/L (98-107); Glucose 101 mg/dl (70-99); Potassium 5.0 mmol/L (3.5-5.1); Sodium 142 mmol/L (135-145); Total Protein 6.7 g/dl (6.3-8.2); eGFR 50.18
[2025-01-11 15:22] LABS: CEA 10.3 ng/ml
== END ==
LOC: HWLAB 09:38
PROVIDERS: ATTENDING PHYSICIAN Internal Medicine Hematology & Oncology; FAMILY PHYSICIAN Nurse Practitioner Adult Health
DX: C18.4 Malignant neoplasm of transverse colon (principal); C78.7 Secondary malignant neoplasm of liver and intrahepatic bile duct; R80.9 Proteinuria, unspecified; R91.1 Solitary pulmonary nodule
CPT/HCPCS: 36415; 80053; 82378; 82570; 84156; 85025

== ENCOUNTER → 2025-01-30 10:26 | Outpatient (REF) | payer MEDICARE, OTHER, SELFPAY ==
[2025-01-30 12:19] LABS: Hematocrit 34.4 % (39.0-52.0); Hemoglobin 11.4 g/dL (13.0-18.0); Mean Corp Hgb Conc. 33.1 g/dL (33.0-37.0); Mean Corpuscular Volume 100.6 fL (80.0-94.0); Nucleated Red Blood Cells % 0 % (-); Platelet Count 96 10^3/uL (130-400); Red Cell Dist. Width 13.8 % (11.5-14.5)
[2025-01-30 13:15] LABS: CEA 10.8 ng/ml
[2025-01-30 13:30] LABS: ALT (SGPT) 31 U/L (0-50); AST (SGOT) 32 U/L (17-59); Albumin 4.1 g/dl (3.5-5.0); Alkaline Phosphatase 129 U/L (38-126); Blood Urea Nitrogen 29 mg/dl (9-20); Calcium 9.5 mg/dl (8.4-10.2); Carbon Dioxide 17 mmol/L (22-30); Chloride 116 mmol/L (98-107); Glucose 106 mg/dl (70-99); Potassium 4.9 mmol/L (3.5-5.1); Sodium 143 mmol/L (135-145); Total Protein 6.8 g/dl (6.3-8.2); eGFR 54.85
== END ==
LOC: REG 10:26
PROVIDERS: ATTENDING PHYSICIAN Internal Medicine Hematology & Oncology; FAMILY PHYSICIAN Nurse Practitioner Adult Health
DX: C18.4 Malignant neoplasm of transverse colon (principal); C78.7 Secondary malignant neoplasm of liver and intrahepatic bile duct; R80.9 Proteinuria, unspecified; R91.1 Solitary pulmonary nodule
CPT/HCPCS: 36415; 80053; 82378; 82570; 84156; 85025

== ENCOUNTER → 2025-02-15 07:37 | Outpatient (REF) | payer MEDICARE, OTHER, SELFPAY ==
[2025-02-15 07:51] LABS: Glucose 121 mg/dl (70-99)
== END ==
LOC: PET 07:37
PROVIDERS: ATTENDING PHYSICIAN Internal Medicine Hematology & Oncology
DX: C18.4 Malignant neoplasm of transverse colon (principal); C78.7 Secondary malignant neoplasm of liver and intrahepatic bile duct; R91.1 Solitary pulmonary nodule; E86.0 Dehydration
CPT/HCPCS: 36415; 82947

== ENCOUNTER → 2025-02-22 09:39 | Outpatient (REF) | payer MEDICARE, OTHER, SELFPAY ==
[2025-02-22 13:31] LABS: ALT (SGPT) 23 U/L (0-50); AST (SGOT) 27 U/L (17-59); Albumin 3.8 g/dl (3.5-5.0); Alkaline Phosphatase 115 U/L (38-126); Blood Urea Nitrogen 21 mg/dl (9-20); Calcium 9.1 mg/dl (8.4-10.2); Carbon Dioxide 21 mmol/L (22-30); Chloride 114 mmol/L (98-107); Glucose 95 mg/dl (70-99); Potassium 5.6 mmol/L (3.5-5.1); Sodium 139 mmol/L (135-145); Total Protein 6.5 g/dl (6.3-8.2); eGFR 50.18
[2025-02-22 14:15] LABS: Hematocrit 32.8 % (39.0-52.0); Hemoglobin 11.0 g/dL (13.0-18.0); Mean Corp Hgb Conc. 33.5 g/dL (33.0-37.0); Mean Corpuscular Volume 102.8 fL (80.0-94.0); Nucleated Red Blood Cells % 0 % (-); Platelet Count 94 10^3/uL (130-400); Red Cell Dist. Width 13.1 % (11.5-14.5)
[2025-02-22 19:22] LABS: CEA 9.14 ng/ml
== END ==
LOC: HWLAB 09:39
PROVIDERS: ATTENDING PHYSICIAN Internal Medicine Hematology & Oncology; FAMILY PHYSICIAN Nurse Practitioner Adult Health
DX: C18.4 Malignant neoplasm of transverse colon (principal); C78.7 Secondary malignant neoplasm of liver and intrahepatic bile duct; R80.9 Proteinuria, unspecified; R91.1 Solitary pulmonary nodule
CPT/HCPCS: 36415; 80053; 82378; 82570; 84156; 85025

== ENCOUNTER → 2025-03-05 13:15 | Outpatient (REF) | payer MEDICARE, OTHER, SELFPAY | LOC: HWRAD 13:15 | PROVIDERS: ATTENDING PHYSICIAN Internal Medicine Critical Care Medicine; FAMILY PHYSICIAN Nurse Practitioner Adult Health; REFERRING PHYSICIAN Internal Medicine Hematology & Oncology | DX: R91.1 Solitary pulmonary nodule (principal) | CPT/HCPCS: 71250 ==

== ENCOUNTER → 2025-03-15 10:08 | Outpatient (REF) | payer MEDICARE, OTHER, SELFPAY ==
[2025-03-15 12:59] LABS: ALT (SGPT) 26 U/L (0-50); AST (SGOT) 27 U/L (17-59); Albumin 3.8 g/dl (3.5-5.0); Alkaline Phosphatase 126 U/L (38-126); Blood Urea Nitrogen 24 mg/dl (9-20); Calcium 9.3 mg/dl (8.4-10.2); Carbon Dioxide 20 mmol/L (22-30); Chloride 115 mmol/L (98-107); Glucose 150 mg/dl (70-99); Potassium 5.0 mmol/L (3.5-5.1); Sodium 141 mmol/L (135-145); Total Protein 6.5 g/dl (6.3-8.2); eGFR 50.18
[2025-03-15 13:20] LABS: Hematocrit 32.4 % (39.0-52.0); Hemoglobin 10.7 g/dL (13.0-18.0); Mean Corp Hgb Conc. 33.0 g/dL (33.0-37.0); Mean Corpuscular Volume 101.3 fL (80.0-94.0); Nucleated Red Blood Cells % 0 % (-); Platelet Count 92 10^3/uL (130-400); Red Cell Dist. Width 13.6 % (11.5-14.5)
[2025-03-15 19:37] LABS: CEA 10.6 ng/ml
== END ==
LOC: HWLAB 10:08
PROVIDERS: ATTENDING PHYSICIAN Internal Medicine Hematology & Oncology; FAMILY PHYSICIAN Nurse Practitioner Adult Health
DX: C18.4 Malignant neoplasm of transverse colon (principal); C78.7 Secondary malignant neoplasm of liver and intrahepatic bile duct; R80.9 Proteinuria, unspecified; R91.1 Solitary pulmonary nodule
CPT/HCPCS: 36415; 80053; 82378; 82570; 84156; 85025

== ENCOUNTER → 2025-03-18 11:17 | Outpatient (REF) | payer MEDICARE, OTHER, SELFPAY ==
[2025-03-18 12:51] LABS: Hematocrit 31.1 % (39.0-52.0); Hemoglobin 10.4 g/dL (13.0-18.0); Mean Corp Hgb Conc. 33.4 g/dL (33.0-37.0); Mean Corpuscular Volume 101.0 fL (80.0-94.0); Nucleated Red Blood Cells % 0 % (-); Platelet Count 77 10^3/uL (130-400); Red Cell Dist. Width 13.5 % (11.5-14.5)
[2025-03-18 12:56] LABS: INR 1.14; PT 15.1 Sec (11.4-14.6)
[2025-03-18 12:57] LABS: APTT 25.4 Sec (23.4-35.0)
[2025-03-18 13:13] LABS: Reticulocyte Count 1.5 % (0.4-2.8)
== END ==
LOC: HWLAB 11:17
PROVIDERS: ATTENDING PHYSICIAN Internal Medicine Critical Care Medicine; FAMILY PHYSICIAN Nurse Practitioner Adult Health
DX: Z01.818 Encounter for other preprocedural examination (principal); N17.9 Acute kidney failure, unspecified
CPT/HCPCS: 36415; 85025; 85045; 85610; 85730; 93005

== ENCOUNTER 2025-03-22 06:29 | Day surgery (SDC) | payer MEDICARE, OTHER, SELFPAY ==
--- NOTE | 2025-03-19 15:30 | PTCARENOTE ---
Abnormal ECG done today was reviewed by ; no actions requested.
--- NOTE | 2025-03-19 15:37 | PTCARENOTE ---
Patients 03/19 ECG abnormal- reviewed by Dr. Patten- no additional interventions required
[2025-03-22] VITALS (8 sets, daily range): BP systolic 120–146; BP diastolic 48–63; BMI 25.1
[2025-03-22] MEDS: VENTOLIN NEBULES 2.5 MG INH (12:58)
[2025-03-22 13:08] LABS: Glucose - Point of Care 140 mg/dl (70-99)
[2025-03-22 14:16] LABS: Glucose - Point of Care 173 mg/dl (70-99)
== END 2025-03-22 15:25 | disposition home or self-care (01) ==
LOC: SDS 06:29
PROVIDERS: ATTENDING PHYSICIAN Internal Medicine Critical Care Medicine
DX: C77.1 Secondary and unspecified malignant neoplasm of intrathoracic lymph nodes (principal); C78.7 Secondary malignant neoplasm of liver and intrahepatic bile duct; R91.1 Solitary pulmonary nodule; R59.0 Localized enlarged lymph nodes
CPT/HCPCS: 31652; 82962; 88173; 88305; 88341; 88342; 94640

== ENCOUNTER → 2025-03-22 07:42 | Outpatient (REF) | payer MEDICARE, OTHER, SELFPAY ==
[2025-03-22 09:20] LABS: Hematocrit 32.9 % (39.0-52.0); Hemoglobin 10.7 g/dL (13.0-18.0); Mean Corp Hgb Conc. 32.5 g/dL (33.0-37.0); Mean Corpuscular Volume 102.8 fL (80.0-94.0); Platelet Count 63 10^3/uL (130-400); Red Cell Dist. Width 13.4 % (11.5-14.5)
[2025-03-22 09:36] LABS: Glycohemoglobin (HgbA1c) 7.3 % (4.0-5.6)
[2025-03-22 09:48] LABS: Reticulocyte Count 0.7 % (0.4-2.8)
[2025-03-22 10:00] LABS: ALT (SGPT) 25 U/L (0-50); AST (SGOT) 24 U/L (17-59); Albumin 3.5 g/dl (3.5-5.0); Alkaline Phosphatase 117 U/L (38-126); Blood Urea Nitrogen 36 mg/dl (9-20); Calcium 8.8 mg/dl (8.4-10.2); Carbon Dioxide 20 mmol/L (22-30); Chloride 114 mmol/L (98-107); Glucose 167 mg/dl (70-99); HDL Cholesterol 36 mg/dl; LDL Cholesterol, Calculated 50 mg/dl; Potassium 5.5 mmol/L (3.5-5.1); Sodium 140 mmol/L (135-145); Total Protein 6.1 g/dl (6.3-8.2); Very Low Density Lipoprotein 22 mg/dl (0-30); eGFR 46.19
[2025-03-22 10:20] LABS: Nucleated Red Blood Cells % 0 % (-)
== END ==
LOC: REG 07:42
PROVIDERS: ATTENDING PHYSICIAN Internal Medicine Critical Care Medicine; FAMILY PHYSICIAN Nurse Practitioner Adult Health
DX: Z01.818 Encounter for other preprocedural examination (principal); E11.69 Type 2 diabetes mellitus with other specified complication; N18.32 Chronic kidney disease, stage 3b; E78.2 Mixed hyperlipidemia; F03.90 Unspecified dementia, unspecified severity, without behavioral disturbance, psychotic disturbance, mood disturbance, and anxiety; N18.31 Chronic kidney disease, stage 3a
CPT/HCPCS: 36415; 80053; 80061; 83036; 85025; 85045

== ENCOUNTER → 2025-03-29 10:07 | Outpatient (REF) | payer MEDICARE, OTHER, SELFPAY | LOC: HWRCS 10:07 | PROVIDERS: ATTENDING PHYSICIAN Internal Medicine Cardiovascular Disease; FAMILY PHYSICIAN Nurse Practitioner Adult Health | DX: I10 Essential (primary) hypertension (principal); I45.81 Long QT syndrome; I25.10 Atherosclerotic heart disease of native coronary artery without angina pectoris | CPT/HCPCS: 93306 ==

== ENCOUNTER → 2025-04-05 10:17 | Outpatient (REF) | payer MEDICARE, OTHER, SELFPAY ==
[2025-04-05 12:31] LABS: ALT (SGPT) 31 U/L (0-50); AST (SGOT) 34 U/L (17-59); Albumin 3.7 g/dl (3.5-5.0); Alkaline Phosphatase 151 U/L (38-126); Blood Urea Nitrogen 25 mg/dl (9-20); Calcium 9.1 mg/dl (8.4-10.2); Carbon Dioxide 23 mmol/L (22-30); Chloride 111 mmol/L (98-107); Glucose 154 mg/dl (70-99); Potassium 4.9 mmol/L (3.5-5.1); Sodium 135 mmol/L (135-145); Total Protein 6.5 g/dl (6.3-8.2); eGFR 54.85
[2025-04-05 12:33] LABS: Hematocrit 32.7 % (39.0-52.0); Hemoglobin 10.7 g/dL (13.0-18.0); Mean Corp Hgb Conc. 32.7 g/dL (33.0-37.0); Mean Corpuscular Volume 102.2 fL (80.0-94.0); Nucleated Red Blood Cells % 0 % (-); Platelet Count 88 10^3/uL (130-400); Red Cell Dist. Width 13.3 % (11.5-14.5)
[2025-04-05 21:08] LABS: CEA 10.3 ng/ml
== END ==
LOC: HWLAB 10:17
PROVIDERS: ATTENDING PHYSICIAN Internal Medicine Hematology & Oncology; FAMILY PHYSICIAN Nurse Practitioner Adult Health
DX: C18.4 Malignant neoplasm of transverse colon (principal); C78.7 Secondary malignant neoplasm of liver and intrahepatic bile duct; R80.9 Proteinuria, unspecified; R91.1 Solitary pulmonary nodule
CPT/HCPCS: 36415; 80053; 82378; 82570; 84156; 85025

== ENCOUNTER → 2025-04-26 09:06 | Outpatient (REF) | payer MEDICARE, OTHER, SELFPAY ==
[2025-04-26 12:48] LABS: ALT (SGPT) 27 U/L (0-50); AST (SGOT) 30 U/L (17-59); Albumin 4.1 g/dl (3.5-5.0); Alkaline Phosphatase 138 U/L (38-126); Blood Urea Nitrogen 24 mg/dl (9-20); Calcium 9.4 mg/dl (8.4-10.2); Carbon Dioxide 21 mmol/L (22-30); Chloride 111 mmol/L (98-107); Glucose 135 mg/dl (70-99); Potassium 4.9 mmol/L (3.5-5.1); Sodium 136 mmol/L (135-145); Total Protein 7.3 g/dl (6.3-8.2); eGFR 50.18
[2025-04-26 12:58] LABS: Hematocrit 34.3 % (39.0-52.0); Hemoglobin 11.1 g/dL (13.0-18.0); Mean Corp Hgb Conc. 32.4 g/dL (33.0-37.0); Mean Corpuscular Volume 106.5 fL (80.0-94.0); Nucleated Red Blood Cells % 0 % (-); Platelet Count 103 10^3/uL (130-400); Red Cell Dist. Width 13.4 % (11.5-14.5)
[2025-04-26 20:29] LABS: CEA 12.0 ng/ml
== END ==
LOC: HWLAB 09:06
PROVIDERS: ATTENDING PHYSICIAN Internal Medicine Hematology & Oncology; FAMILY PHYSICIAN Nurse Practitioner Adult Health
DX: C18.4 Malignant neoplasm of transverse colon (principal); C78.7 Secondary malignant neoplasm of liver and intrahepatic bile duct; R80.9 Proteinuria, unspecified; R91.1 Solitary pulmonary nodule; C34.12 Malignant neoplasm of upper lobe, left bronchus or lung
CPT/HCPCS: 80053; 82378; 82570; 84156; 85025

== ENCOUNTER → 2025-05-15 11:10 | Outpatient (REF) | payer MEDICARE, OTHER, SELFPAY ==
[2025-05-15 12:36] LABS: Hematocrit 33.5 % (39.0-52.0); Hemoglobin 10.9 g/dL (13.0-18.0); Mean Corp Hgb Conc. 32.5 g/dL (33.0-37.0); Mean Corpuscular Volume 107.0 fL (80.0-94.0); Nucleated Red Blood Cells % 0 % (-); Platelet Count 88 10^3/uL (130-400); Red Cell Dist. Width 13.8 % (11.5-14.5)
[2025-05-15 12:55] LABS: ALT (SGPT) 27 U/L (0-50); AST (SGOT) 29 U/L (17-59); Albumin 3.7 g/dl (3.5-5.0); Alkaline Phosphatase 146 U/L (38-126); Blood Urea Nitrogen 21 mg/dl (9-20); Calcium 8.8 mg/dl (8.4-10.2); Carbon Dioxide 19 mmol/L (22-30); Chloride 109 mmol/L (98-107); Glucose 166 mg/dl (70-99); Sodium 135 mmol/L (135-145); Total Protein 6.6 g/dl (6.3-8.2); eGFR 54.85
[2025-05-15 13:00] LABS: Potassium 5.0 mmol/L (3.5-5.1)
[2025-05-15 13:25] LABS: CEA 11.4 ng/ml
== END ==
LOC: REG 11:10
PROVIDERS: ATTENDING PHYSICIAN Internal Medicine Hematology & Oncology; FAMILY PHYSICIAN Nurse Practitioner Adult Health
DX: C18.4 Malignant neoplasm of transverse colon (principal); C78.7 Secondary malignant neoplasm of liver and intrahepatic bile duct; R80.9 Proteinuria, unspecified; R91.1 Solitary pulmonary nodule; C34.12 Malignant neoplasm of upper lobe, left bronchus or lung
CPT/HCPCS: 36415; 80053; 82378; 82570; 84156; 85025

== ENCOUNTER → 2025-06-07 10:03 | Outpatient (REF) | payer MEDICARE, OTHER, SELFPAY ==
[2025-06-07 11:32] LABS: Hematocrit 32.6 % (39.0-52.0); Hemoglobin 11.0 g/dL (13.0-18.0); Mean Corp Hgb Conc. 33.7 g/dL (33.0-37.0); Mean Corpuscular Volume 102.2 fL (80.0-94.0); Nucleated Red Blood Cells % 0 % (-); Platelet Count 101 10^3/uL (130-400); Red Cell Dist. Width 13.9 % (11.5-14.5)
[2025-06-07 11:45] LABS: ALT (SGPT) 26 U/L (0-50); AST (SGOT) 32 U/L (17-59); Albumin 3.9 g/dl (3.5-5.0); Alkaline Phosphatase 118 U/L (38-126); Blood Urea Nitrogen 29 mg/dl (9-20); Calcium 9.2 mg/dl (8.4-10.2); Carbon Dioxide 18 mmol/L (22-30); Chloride 111 mmol/L (98-107); Glucose 111 mg/dl (70-99); Potassium 4.8 mmol/L (3.5-5.1); Sodium 138 mmol/L (135-145); Total Protein 6.8 g/dl (6.3-8.2); eGFR 49.87
[2025-06-07 12:10] LABS: CEA 11.0 ng/ml
== END ==
LOC: HWLAB 10:03
PROVIDERS: ATTENDING PHYSICIAN Internal Medicine Hematology & Oncology; FAMILY PHYSICIAN Nurse Practitioner Adult Health
DX: C18.4 Malignant neoplasm of transverse colon (principal); C78.7 Secondary malignant neoplasm of liver and intrahepatic bile duct; R80.9 Proteinuria, unspecified; R31.1 Benign essential microscopic hematuria; C34.12 Malignant neoplasm of upper lobe, left bronchus or lung
CPT/HCPCS: 36415; 80053; 82378; 82570; 84156; 85025